=== PATIENT | male | born 1960 | race Caucasian/White ===

== ENCOUNTER 2023-02-14 06:54 | Outpatient (OUT) | payer BC, SELFPAY ==
[2023-02-14 07:10] LABS: Hematocrit 45.7 % (42.0-54.0); Hemoglobin 15.4 g/dL (14.0-18.0)
[2023-02-14 08:58] LABS: Prostate Specific Antigen Scrn 0.81 ng/mL (<=4.00)
[2023-02-15 04:07] LABS: Testosterone 675 ng/dL (264-916)
== END 2023-02-14 06:55 ==
LOC: LAB 06:54
PROVIDERS: PCP Internal Medicine; Visit Provider Urology
DX: E29.1 Testicular hypofunction (principal)
CPT/HCPCS: 36415; 84403; 85014; 85018; G0103

== ENCOUNTER 2023-06-12 11:24 | Outpatient (OUT) | payer BC, SELFPAY ==
[2023-06-12 12:01] LABS: Microalbumin Urine Random 5.8 mg/dL (<=30.0)
[2023-06-12 12:03] LABS: Estimated Average Glucose 183 mg/dL
[2023-06-12 12:12] LABS: Alanine Aminotransferase 19 U/L (16-63); Albumin Globulin Ratio 0.8; Albumin Level 3.4 g/dL (3.4-5.0); Alkaline Phosphatase 58 U/L (46-116); Aspartate Amino Transferase 12 U/L (15-37); BUN Creatinine Ratio 17.6; Bilirubin Total 1.3 mg/dL (0.2-1.0); Calcium 9.1 mg/dL (8.5-10.1); Carbon Dioxide 27.5 mmol/L (21.0-32.0); Chloride 99 mmol/L (98-107); Chol HDL Ratio 3.4; Cholesterol 148 mg/dL (<=200); Estimated GFR (African America >60 (>=60); Estimated GFR (Non-African Ame >60 (>=60); Globulin 4.2 g/dL; Glucose 126 mg/dL (74-106); HDL Cholesterol 44 mg/dL (40-60); Potassium 4.5 mmol/L (3.5-5.1); Sodium 135 mmol/L (136-145); Total Protein 7.6 g/dL (6.4-8.2); Triglycerides 156 mg/dL (<=150); VLDL CHOLESTEROL 31.2 mg/dL
== END 2023-06-12 11:25 | disposition home or self-care (01) ==
LOC: LAB 11:25
PROVIDERS: PCP Internal Medicine; Visit Provider Internal Medicine
DX: Z00.00 Encounter for general adult medical examination without abnormal findings (principal)
CPT/HCPCS: 36415; 80053; 80061; 82043; 83036

== ENCOUNTER 2023-08-29 06:36 | Outpatient (OUT) | payer BC, SELFPAY ==
[2023-08-29 07:27] LABS: Hematocrit 50.3 % (42.0-54.0); Hemoglobin 16.5 g/dL (14.0-18.0)
[2023-08-30 04:09] LABS: Testosterone 775 ng/dL (264-916)
== END 2023-08-29 06:37 | disposition home or self-care (01) ==
LOC: LAB 06:36
PROVIDERS: PCP Internal Medicine; Visit Provider Urology
DX: E29.1 Testicular hypofunction (principal); N52.9 Male erectile dysfunction, unspecified; N40.1 Benign prostatic hyperplasia with lower urinary tract symptoms; R81 Glycosuria
CPT/HCPCS: 36415; 84403; 85014; 85018

== ENCOUNTER 2024-06-13 12:39 | Outpatient (OUT) | payer MEDICARE, OTHER, SELFPAY ==
--- OUTSIDE RECORDS SUMMARY | 2024-06-13 12:42 | XMS_ITS | CCD ---
Author Organization [facility] Care Team Providers Care Fish Technologist Name Role Phone MART JIANG Primary Care Physician DO Mart Jiang Primary Care Provider DO Mart Jiang Attending Provider Mart Jiang Attending Unavailable Ball, Mart Primary Care Unavailable Mart Jiang Admitting Unavailable REQUEST, DR KELLY LISTED Attending Unavaila ble REQUEST, DR KELLY LISTED Consulting Unavaila ble REQUEST, DR KELLY LISTED Admitting Unavaila ble BALL, DR EDUARDO Primary Care Unavailable BALL, DR EDUARDO Admitting Unavailable BALL, DR EDUARDO Attending Unavailable BALL, DR EDUARDO Consulting Unavailable BALL, DR EDUARDO Primary Care Unavailable BALL, DR EDUARDO Admitting Unavailable BALL, DR EDUARDO Attending Unavailable BALL, DR EDUARDO Consulting Unavailable BALL, DR EDUARDO Primary Care Unavailable BALL, DR EDUARDO Admitting Unavailable BALL, DR EDUARDO Attending Unavailable BALL, DR EDUARDO Consulting Unavailable BALL, DR EDUARDO Primary Care Unavailable MITCHELMONICA Admitting Unavailable BALL, DR EDUARDO Primary Care Unavailable MITCHELMONICA BERGER Attending Unavailable MONICA GRULLON Consulting Unavailable EMERALD ROCK Admitting Unavailable BALL, DR EDUARDO Primary Care Unavailable MONICA GRULLON Consulting Unavailable WOJCIECH .EMERALD Attending Unavailable DENZEL Og, DR LEA Patricia Attending Unavaila ble DENZEL Og, DR LEA Patricia Consulting Unavaila ble DENZEL Og, DR LEA Patricia Admitting Unavaila ble BALL, DR EDUARDO Primary Care Unavailable Mart Jiang Unavailable Emerald Jeffrey Attending Unavailable MITCHELMONICA BERGER Attending Unavailable LueEmerald Attending Unavailable LueEmerald Attending Unavailable LueEmerald Attending Unavailable LueEmerald Attending Unavailable LueEmerald MLenka Attending Unavailable LueEmerald MLenka Attending Unavailable MITCHELMONICA Attending Unavailable LueEmerald Attending Unavailable MONICA GRULLON Attending Unavailable MONICA GRULLON Attending Unavailable Emerald Jeffrey Attending Unavailable MONCIA GRULLON Attending Unavailable MONICA GRULLON Attending Unavailable Emerald Jeffrey Attending Unavailable Emerald Jeffrey Attending Unavailable Emerald Jeffrey MLenka Attending Unavailable Emerald Jeffrey MLenka Attending Unavailable Emerald Jeffrey Attending Unavailable Emerald Jeffrey Attending Unavailable Emerald Jeffrey Attending Unavailable MONICA GRULLON Attending Unavailable Emerald Jeffrey Attending Unavailable Emerald Jeffrey Attending Unavailable DELIO GRULLON Attending Unavailable MONICA GRULLON Attending Unavailable Emerald Jeffrey Attending Unavailable JUAN MANUEL MCCLELLAND Attending Unavailable Allergies Allergy Classification Reported Allergen(s) Allergy Type Date of Onset Reaction(s) Facility (1 source) No Known Medication Allergies; Translations: [No Known Medication Allergies] Propensity to adverse reactions (disorder) [facility] Repository Medications Current Medications Medication Drug Class(es) Dates Sig (Normalized) Sig (Original) Tylenol (20 sources) Start: 07-05-2021 Tylenol Oral, Refills(s) 0 Start Date: 07/05/21 Status: Ordered aspirin 81 mg oral capsule (20 sources) Platelet Aggregation Inhibitor, Nonsteroidal Anti-inflammatory Drug Start: 07-05-2021 take 1 mg by mouth every four hours aspirin 81 mg oral capsule mg cap(s), Oral, q4hr, Refills(s) 0 Start Date: 07/05/21 Status: Ordered atenolol 100 mg oral tablet (20 sources) beta-Adrenergic Mckayla Start: 07-05-2021 take 1 mg by mouth once daily atenolol 100 mg Tab mg tab(s), Oral, Daily, Refills(s) 0 Start Date: 07/05/21 Status: Ordered take 0.5 tablet by mouth once da vincent Atenolol 100 MG TAKE 1/2 TABLET BY MOUTH EVERY DAY Active Depo-Testosterone 200 mg/mL intramuscular solution (2 sources) Start: 07-05-2021 Depo-Testosterone 200 mg/mL intramuscular solution 200 mg = 1 mL, IntraMuscular, q2wk, inject 200mg q 4 weeks IM, # 10 mL, Refills(s) 2, Pharmacy: [facility]/pharmacy #[id number], 175, cm, 07/05/21 9:36:00 EST, Height/Length Dosing, 175, kg, 07/05/21 9:36:00 EST, Weight Dosing Start Date: 07/05/21 Status: Ordered gabapentin 100 mg oral capsule (20 sources) Anti-epileptic Agent Start: 07-05-2021 take 1 mg by mouth three times daily gabapentin 100 mg Cap mg cap(s), Oral, TID, Refills(s) 0 Start Date: 07/05/21 Status: Ordered glimepiride 1 mg oral tablet (20 sources) Sulfonylurea Start: 07-05-2021 take 1 tablet by mouth once daily glimepiride 1 mg Tab mg tab(s), Oral, Daily, Refills(s) 0 Start Date: 07/05/21 Status: Ordered insulin isophane / insulin, regular, human (20 sources) Insulin Start: 07-05-2021 Novolin 70/30 SubCutaneous, Refill(s) 0 Start Date: 07/05/21 Status: Ordered NovoLIN 70/30 (7 0-30) 100 UNIT/ML as directed Subcutaneous Active lisinopril 30 mg oral tablet (20 sources) Angiotensin Converting Enzyme Inhibitor Start: 07-05-2021 take 1 mg by mouth once daily lisinopril 30 mg Tab mg tab(s), Oral, Daily, Refills(s) 0 Start Date: 07/05/21 Status: Ordered metFORMIN hydrochloride 1000 mg oral tablet (20 sources) Biguanide Start: 07-05-2021 take 1 mg by mouth twice daily metformin 1000 mg oral tablet mg tab(s), Oral, BID, Refills(s) 0 Start Date: 07/05/21 Status: Ordered take 1 tablet by anh th every twenty-four hours metFORMIN HCl 1000 MG 1 tablet with a meal Orally Once a day Active pravastatin sodium 40 mg oral tablet (20 sources) HMG-CoA Reductase Inhibitor Start: 07-05-2021 take 1 mg by mouth once daily Pravachol 40 mg Tab mg tab(s), Oral, Daily, Refills(s) 0 Start Date: 07/05/21 Status: Ordered sildenafil 100 mg oral tablet (12 sources) Phosphodiesterase 5 Inhibitor Start: 03-21-2023 take 1 tablet by mouth once daily sildenafil 100 mg Tab See Instructions, 1 tab(s) Oral Daily 1 hour before sexual activity, # 30 tab(s), Refills(s) 3, Pharmacy: [facility] [id number], 175, cm, 02/21/23 10:05:00 EDT, Height/Length Dosing, 169.2, kg, 02/21/23 10:05:00 EDT, Weight Dosing Start Date: 03/21/23 Status: Ordered Start: 07-05-2021 take 1 tablet by anh once daily sildenafil 100 mg Tab 100 mg = 1 tab(s), Oral, Daily, 1 hour before sexual activity, # 30 tab(s), Refills(s) 2, Pharmacy: [facility] [id number], 175, cm, 07/05/21 9:36:00 EST, Height/Length Dosing, 175, kg, 07/05/21 9:36:00 EST, Weight Dosing Start Date: 07/05/21 Status: Ordered 1 ml testosterone cypionate 200 mg/ml injection (4 sources) Androgen inject 1 mL by intramuscular injection every month Testosterone Cypionate 200 MG/ML 1 mL Intramuscular MONTHLY Active inject 1 mL by intra muscular injection every month Testosterone Cypionate 200 MG/ML 1 mL Intramuscular MONTHLY Active testosterone cypionate 200 mg/mL IM Gaye (20 sources) Start: 07-10-2023 inject 200 mg by intramuscular injection every other week testosterone cypionate 200 mg/mL IM Gaye 200 mg = 1 mL, IntraMuscular, q2wk, # 4 mL, Refills(s) 0, Pharmacy: [facility]/pharmacy #[id number], 175, cm, 02/21/23 10:05:00 EDT, Height/Length Dosing, 169.2, kg, 02/21/23 10:05:00 EDT, Weight Dosing Start Date: 07/10/23 Status: Ordered Start: 05-29-2023 inject 200 mg by int ramuscular injection every other week testosterone cypionate 200 mg/mL IM Gaye 200 mg = 1 mL, IntraMuscular, q2wk, # 1 mL, Refills(s) 3, Pharmacy: [facility]/pharmacy #[id number], 175, cm, 02/21/23 10:05:00 EDT, Height/Length Dosing, 169.2, kg, 02/21/23 10:05:00 EDT, Weight Dosing Start Date: 05/29/23 Status: Ordered Start: 02-15-2023 inject 200 mg by int ramuscular injection every other week testosterone cypionate 200 mg/mL IM Gaye 200 mg = 1 mL, IntraMuscular, q2wk, # 1 mL, Refills(s) 0, [id number] 175, cm, 11/15/22 8:06:00 EDT, Height/Length Dosing, 163, kg, 11/15/22 8:06:00 EDT, Weight Dosing Start Date: 02/15/23 Status: Ordered Start: 11-15-2022 inject 200 mg by int ramuscular injection every other week testosterone cypionate 200 mg/mL IM Gaye 200 mg = 1 mL, IntraMuscular, q2wk, # 10 mL, Refills(s) 5, [id number], 175, cm, 11/15/22 8:06:00 EDT, Height/Length Dosing, 163, kg, 11/15/22 8:06:00 EDT, Weight Dosing Start Date: 11/15/22 Status: Ordered Start: 08-09-2022 inject 200 mg by int ramuscular injection every other week testosterone cypionate 200 mg/mL IM Gaye 200 mg = 1 mL, IntraMuscular, q2wk, # 10 mL, Refills(s) 5, [id number], 175, cm, 08/09/22 13:42:00 EST, Height/Length Dosing, 175, kg, 08/09/22 13:42:00 EST, Weight Dosing Start Date: 08/09/22 Status: Ordered testosterone cypionate 200 mg/mL intramuscular solution (12 sources) Start: 03-07-2022 testosterone c ypionate 200 mg/mL intramuscular solution 200 mg, IntraMuscular, q4wk, # 10 mL, Refills(s) 1, Pharmacy: [facility]/pharmacy #[id number], 175, cm, 02/07/22 9:55:00 EDT, Height/Length Dosing, 175, kg, 02/07/22 9:55:00 EDT, Weight Dosing Start Date: 03/07/22 Status: Ordered Start: 02-07-2022 testosterone c ypionate 200 mg/mL intramuscular solution 200 mg, IntraMuscular, q4wk, # 10 mL, Refills(s) 1, Pharmacy: [facility] [id number], 175, cm, 02/07/22 9:55:00 EDT, Height/Length Dosing, 175, kg, 02/07/22 9:55:00 EDT, Weight Dosing Start Date: 02/07/22 Status: Ordered vardenafil 20 mg oral tablet (20 sources) Phosphodiesterase 5 Inhibitor Start: 02-07-2022 take 1 tablet by mouth once daily as needed vardenafil 20 mg Tab See Instructions, PRN for erectile dysfunction, 1 tab(s) Oral Daily 1 hour before sexual activity, # 30 caplet(s), Refills(s) 3, Pharmacy: [id number], 175, cm, 02/07/22 9:55:00 EDT, Height/Length Dosing, 175, kg, 02/07/22 9:55:00 EDT, Weig... Start Date: 03/07/22 Status: Ordered Vitamin E (20 sources) Start: 07-05-2021 vitamin E Oral, Daily, Refills(s) 0 Start Date: 07/05/21 Status: Ordered Problems Active Problems Problem Classification Problem Date Documented Date Episodic/Chronic Allergic reactions (4 sources) Allergic contact dermatitis caused by chemical; Translations: [Allergic contact dermatitis due to other chemical products] Episodic Diabetes mellitus with complications (20 sources) Hyperglycemia due to type 2 diabetes mellitus; Translations: [Polyneuropathy due to type 2 diabetes mellitus] Onset: 08-05-2021 08-09-2022 Chronic Diabetes mellitus without complication (20 sources) Glycosuria; Translations: [Glycosuria] Onset: 11-15-2022 Episodic Disorders of lipid metabolism (6 sources) Pure hypercholesterolemia ; Translations: [Familial hypercholesterolemia ] Chronic Essential hypertension (6 sources) Essential hypertension; Translations: [Essential (primary) hypertension] Chronic Genitourinary symptoms and ill-defined conditions (1 source) Microscopic hematuria; Translations: [Other microscopic hematuria] Onset: 02-07-2022 Episodic Hyperplasia of prostate (20 sources) Benign prostatic hypertrophy with outflow obstruction; Translations: [Benign prostatic hyperplasia with lower urinary tract symptoms] Onset: 02-07-2022 Chronic Miscellaneous mental health disorders (1 source) Male erectile disorder; Translations: [Erectile dysfunction] Onset: 02-07-2022 Chronic Other aftercare (3 sources) snf (current) use of insulin; Translations: [RESIDENTIAL CURRENT USE OF INSULIN] Onset: 01-03-2022 Episodic Other aftercare (4 sources) Long-term current use of insulin; Translations: [snf (current) use of insulin] Episodic Other and unspecified benign neoplasm (1 source) Benign neoplasm of colon, unspecified Episodic Other diseases of kidney and ureters (2 sources) Urinary tract obstruction; Translations: [Other obstructive and reflux uropathy] Onset: 02-07-2022 Episodic Other diseases of veins and lymphatics (1 source) Lymphedema, not elsewhere classified; Translations: [Lymphedema, not elsewhere classified] Onset: 03-29-2022 Chronic Other diseases of veins and lymphatics (4 sources) Peripheral venous insufficiency; Translations: [Venous insufficiency (chronic) (peripheral)] Episodic Other diseases of veins and lymphatics (2 sources) Venous insufficiency (chronic) (peripheral) Episodic Other endocrine disorders (20 sources) Testicular hypofunction; Translations: [Testicular hypofunction] Onset: 11-14-2021 Chronic Other endocrine disorders (20 sources) Male hypogonadism 07-07-2022 Chronic Other endocrine disorders (5 sources) Testicular hypofunction; Translations: [TESTICULAR HYPOFUNCTION] Onset: 01-03-2022 Chronic Other male genital disorders (20 sources) Male erectile dysfunction, unspecified; Translations: [Erectile dysfunction] Onset: 02-07-2022 Chronic Other nutritional; endocrine; and metabolic disorders (4 sources) Morbid obesity; Translations: [Morbid (severe) obesity due to excess calories] Chronic Other nutritional; endocrine; and metabolic disorders (2 sources) Morbid (severe) obesity due to excess calories Chronic Other screening for suspected conditions (not mental disorders or infectious disease) (6 sources) Encounter for screening for malignant neoplasm of prostate; Translations: [Decreased testosterone level ] Onset: 04-17-2022 Episodic Residual codes; unclassified (4 sources) Edema; Translations: [Localized edema] Episodic Past or Other Problems Problem Classification Problem Date Documented Da te Episodic/Chronic Residual codes; unclassified (1 source) Localized edema; Translations: [LOCALIZED EDEMA] Onset: 01-03-2022 Episodic Results Test Name Value Interpretation Reference Range Facil ity [facility] 09-03-2023 Lab Reports [id number] 61#1.00TIFF [facility] Lab Reportson 08-30-2023 Lab Reports [id number] [facility] [id number] C3[facility] 08-23-20 Consultation Note [id number] [facility] 1 10-23-2022 Ambulatory Visit Summary SUAD CORDERO :1960 Visit Date:08/22/2023 Ambulatory Visit Instructions Your Diagnosis Hypogonadism male Your Care Team Attending Physician - Emerald Jeffrey MD Primary Care Physician - MART JIANG DO This Is Your Medications List acetaminophen (Tylenol) aspirin (aspirin 81 mg oral capsule) atenolol (atenolol 100 mg Tab) glimepiride (glimepiride 1 mg Tab) insulin isophane-insulin regular (Novolin 70/30) lisinopril (lisinopril 30 mg Tab) metformin (metformin 1000 mg oral tablet) pravastatin (Pravachol 40 mg Tab) sildenafil (sildenafil 100 mg Tab) testosterone (testosterone cypionate 200 mg/mL IM Gaye) vitamin E Procedures Performed Cholecystectomy, Colonoscopy, Tonsillectomy. What to do next Scheduled Follow-Up Appointments Sunday 9:45 AM EST With: Emerald Jeffrey MD Where: [facility] Ambulatory Visit Summaryon 1 10-08-2022 Ambulatory Visit Summary CONSUELO SUAD Meri :1960 Visit Date:08/07/2023 Ambulatory Visit Instructions Your Diagnosis Hypogonadism male Your Care Team Attending Physician - Emerald Jeffrey MD Primary Care Physician - MART JIANG DO This Is Your Medications List acetaminophen (Tylenol) aspirin (aspirin 81 mg oral capsule) atenolol (atenolol 100 mg Tab) glimepiride (glimepiride 1 mg Tab) insulin isophane-insulin regular (Novolin 70/30) lisinopril (lisinopril 30 mg Tab) metformin (metformin 1000 mg oral tablet) pravastatin (Pravachol 40 mg Tab) sildenafil (sildenafil 100 mg Tab) testosterone (testosterone cypionate 200 mg/mL IM Gaye) vitamin E Procedures Performed Cholecystectomy, Colonoscopy, Tonsillectomy. What to do next Scheduled Follow-Up Appointments Sunday 9:30 AM EST With: Where: [facility] Normal [address] [facility] [place] [address]- \.br\ Medications\.br\ What How Much When Instructions\.br\ Unchanged acetaminophen (Tylenol) By Mouth\.br\ Unchanged aspirin (aspirin 81 mg oral capsule) By Mouth Every 4 hours\.br\ Unchanged atenolol (atenolol 100 mg Tab) By Mouth Every day\.br\ Unchanged glimepiride (glimepiride 1 mg Tab) By Mouth Every day\.br\ Unchanged insulin isophane-insulin regular (Novolin 70/ 30) Subcutaneous\.br\ Unchanged lisinopril (lisinopril 30 mg Tab) By Mouth Every day\.br\ Unchanged metformin (metformin 1000 mg oral tablet) By Mouth 2 times a day\.br\ Unchanged pravastatin (Pravachol 40 mg Tab) By Mouth Every day\.br\ Unchanged sildenafil (sildenafil 100 mg Tab) See instructions 1 tab(s) Oral Daily 1 hour before sexual activity \.br\ Unchanged testosterone (testosterone cypionate 200 mg/ mL IM Gaye) 1 Milliliter Intramuscular Every other week\.br\ Unchanged vitamin E By Mouth Every day\.br\ Medications and Immunizations Administered\.br\ Given\.br\ Depo-Testosterone 200 mg/mL intramuscular solution, 200 mg, IntraMuscular. For: Hypogonadism male\.br\ Allergies\.br\ No Known Medication Allergies\.br\ Problems\.br\ Ongoing - Any problem that you are currently receiving treatment for.\.br\ BPH with urinary obstruction\.br\ Erectile dysfunction\.br\ Glucosuria\.br\ Hyperglycemia due to type 2 diabetes mellitus\.br\ Hypogonadism male\.br\ Polyneuropathy due to type 2 diabetes mellitus\.br\ Patient Survey\.br\ You may receive a survey via text or e-mail asking about your office visit. Please share your experience with us by completing your survey. We appreciate your feedback and thank you for choosing us for your care.\.br\ \.br\ [facility] Ambulatory Visit Summaryon 09-23-2022 Ambulatory Visit Summary SUAD CORDERO :1960 Visit Date:07/24/2023 Ambulatory Visit Instructions Your Diagnosis Hypogonadism male Your Care Team Attending Physician - Emerald Jeffrey MD Primary Care Physician - MART JIANG DO This Is Your Medications List acetaminophen (Tylenol) aspirin (aspirin 81 mg oral capsule) atenolol (atenolol 100 mg Tab) glimepiride (glimepiride 1 mg Tab) insulin isophane-insulin regular (Novolin 70/30) lisinopril (lisinopril 30 mg Tab) metformin (metformin 1000 mg oral tablet) pravastatin (Pravachol 40 mg Tab) sildenafil (sildenafil 100 mg Tab) testosterone (testosterone cypionate 200 mg/mL IM Gaye) vitamin E Procedures Performed Cholecystectomy, Colonoscopy, Tonsillectomy. What to do next Scheduled Follow-Up Appointments Sunday 9:30 AM EST With: Where: [facility] Invalid Interpretation Code [address] [place] [address]- \.br\ Sunday 9:45 AM EST \.br\ With: Emerald Jeffrey MD\.br\ Where: [facility] Ambulatory Visit Summaryon 09-09-2022 Ambulatory Visit Summary SUAD CORDERO :1960 Visit Date:07/10/2023 Ambulatory Visit Instructions Your Diagnosis Hypogonadism male Your Care Team Attending Physician - Emerald Jeffrey MD Primary Care Physician - MART JIANG DO This Is Your Medications List acetaminophen (Tylenol) aspirin (aspirin 81 mg oral capsule) atenolol (atenolol 100 mg Tab) glimepiride (glimepiride 1 mg Tab) insulin isophane-insulin regular (Novolin 70/30) lisinopril (lisinopril 30 mg Tab) metformin (metformin 1000 mg oral tablet) pravastatin (Pravachol 40 mg Tab) sildenafil (sildenafil 100 mg Tab) testosterone (testosterone cypionate 200 mg/mL IM Gaye) vitamin E Procedures Performed Cholecystectomy, Colonoscopy, Tonsillectomy. What to do next Scheduled Follow-Up Appointments Sunday 9:30 AM EST With: Where: [facility] Invalid Interpretation Code [address] [place] [address]- \.br\ Sunday 9:30 AM EST \.br\ With:\.br\ Where: [facility] Ambulatory Visit Summaryon 1 Ambulatory Visit Summary SUAD CORDERO :1960 Visit Date:06/26/2023 Ambulatory Visit Instructions Your Diagnosis Hypogonadism male Your Care Team Attending Physician - Wojciech GUERRERO, Emerald Arteaga Primary Care Physician - MART JIANG DO This Is Your Medications List acetaminophen (Tylenol) aspirin (aspirin 81 mg oral capsule) atenolol (atenolol 100 mg Tab) glimepiride (glimepiride 1 mg Tab) insulin isophane-insulin regular (Novolin 70/30) lisinopril (lisinopril 30 mg Tab) metformin (metformin 1000 mg oral tablet) pravastatin (Pravachol 40 mg Tab) sildenafil (sildenafil 100 mg Tab) testosterone (testosterone cypionate 200 mg/mL IM Gaye) vitamin E Procedures Performed Cholecystectomy, Colonoscopy, Tonsillectomy. What to do next Scheduled Follow-Up Appointments Sunday 9:30 AM EST With: Where: [facility] Invalid Interpretation Code [address] [place] [address]- \.br\ Sunday 3:45 PM EST \.br\ With:\.br\ Where: [facility] Ambulatory Visit Summaryon 1 Ambulatory Visit Summary SUAD CORDERO :1960 Visit Date:06/12/2023 Ambulatory Visit Instructions Your Diagnosis Hypogonadism male Your Care Team Attending Physician - Wojciech GUERRERO, Emerald Arteaga Primary Care Physician - MART JIANG DO This Is Your Medications List acetaminophen (Tylenol) aspirin (aspirin 81 mg oral capsule) atenolol (atenolol 100 mg Tab) glimepiride (glimepiride 1 mg Tab) insulin isophane-insulin regular (Novolin 70/30) lisinopril (lisinopril 30 mg Tab) metformin (metformin 1000 mg oral tablet) pravastatin (Pravachol 40 mg Tab) sildenafil (sildenafil 100 mg Tab) testosterone (testosterone cypionate 200 mg/mL IM Agye) vitamin E Procedures Performed Cholecystectomy, Colonoscopy, Tonsillectomy. What to do next Scheduled Follow-Up Appointments Sunday 3:45 PM EDT With: Where: [facility] Invalid Interpretation Code [address] [place] [address]- \.br\ Sunday 3:45 PM EST \.br\ With:\.br\ Where: [facility] Ambulatory Visit Summaryon 1 Ambulatory Visit Summary SUAD CORDERO :1960 Visit Date:05/29/2023 Ambulatory Visit Instructions Your Care Team Attending Physician - Wojciech GUERRERO, Emerald Arteaga Primary Care Physician - MART JIANG DO This Is Your Medications List acetaminophen (Tylenol) aspirin (aspirin 81 mg oral capsule) atenolol (atenolol 100 mg Tab) glimepiride (glimepiride 1 mg Tab) insulin isophane-insulin regular (Novolin 70/30) lisinopril (lisinopril 30 mg Tab) metformin (metformin 1000 mg oral tablet) pravastatin (Pravachol 40 mg Tab) sildenafil (sildenafil 100 mg Tab) testosterone (testosterone cypionate 200 mg/mL IM Gaye) vitamin E Procedures Performed Cholecystectomy, Colonoscopy, Tonsillectomy. What to do next Scheduled Follow-Up Appointments Sunday 3:45 PM EDT With: Where: [facility] Invalid Interpretation Code [address] [place] [address]- \.br\ Sunday 3:45 PM EST \.br\ With:\.br\ Where: [facility] Ambulatory Visit Summaryon 0 04-18-2023 Ambulatory Visit Summary SUAD CORDERO :1960 Visit Date:04/18/2023 Ambulatory Visit Instructions Your Diagnosis Hypogonadism male Your Care Team Attending Physician - Wojciech GUERRERO, Emerald Arteaga Primary Care Physician - MART JIANG DO This Is Your Medications List acetaminophen (Tylenol) aspirin (aspirin 81 mg oral capsule) atenolol (atenolol 100 mg Tab) glimepiride (glimepiride 1 mg Tab) insulin isophane-insulin regular (Novolin 70/30) lisinopril (lisinopril 30 mg Tab) metformin (metformin 1000 mg oral tablet) pravastatin (Pravachol 40 mg Tab) sildenafil (sildenafil 100 mg Tab) testosterone (testosterone cypionate 200 mg/mL IM Gaye) vitamin E Procedures Performed Cholecystectomy, Colonoscopy, Tonsillectomy. What to do next Scheduled Follow-Up Appointments Sunday 3:45 PM EDT With: Where: [facility] Invalid Interpretation Code [address] [place] [address]- \.br\ Sunday 3:45 PM EDT \.br\ With:\.br\ Where: [facility] Ambulatory Visit Summaryon 0 03-06-2023 Ambulatory Visit Summary SUAD CORDERO :1960 Visit Date:03/06/2023 Ambulatory Visit Instructions Your Care Team Attending Physician - DELIO GRULLON DO Primary Care Physician - MART JIANG DO This Is Your Medications List acetaminophen (Tylenol) aspirin (aspirin 81 mg oral capsule) atenolol (atenolol 100 mg Tab) glimepiride (glimepiride 1 mg Tab) insulin isophane-insulin regular (Novolin 70/30) lisinopril (lisinopril 30 mg Tab) metformin (metformin 1000 mg oral tablet) pravastatin (Pravachol 40 mg Tab) testosterone (testosterone cypionate 200 mg/mL IM Gaye) vardenafil (vardenafil 20 mg Tab) vitamin E Procedures Performed Cholecystectomy, Colonoscopy, Tonsillectomy. What to do next Scheduled Follow-Up Appointments Sunday 3:45 PM EDT With: Where: [facility] Normal [address] [place] [address] [place] [address]- \.br\ Medications\.br\ What How Much When Instructions\.br\ Unchanged acetaminophen (Tylenol) By Mouth\.br\ Unchanged aspirin (aspirin 81 mg oral capsule) By Mouth Every 4 hours\.br\ Unchanged atenolol (atenolol 100 mg Tab) By Mouth Every day\.br\ Unchanged glimepiride (glimepiride 1 mg Tab) By Mouth Every day\.br\ Unchanged insulin isophane-insulin regular (Novolin 70/ 30) Subcutaneous\.br\ Unchanged lisinopril (lisinopril 30 mg Tab) By Mouth Every day\.br\ Unchanged metformin (metformin 1000 mg oral tablet) By Mouth 2 times a day\.br\ Unchanged pravastatin (Pravachol 40 mg Tab) By Mouth Every day\.br\ Unchanged testosterone (testosterone cypionate 200 mg/ mL IM Gaye) 1 Milliliter Intramuscular Every other week\.br\ Unchanged vardenafil (vardenafil 20 mg Tab) See instructions 1 tab(s) Oral Daily 1 hour before sexual activity \.br\ Unchanged vitamin E By Mouth Every day\.br\ Medications and Immunizations Administered\.br\ Given\.br\ Depo-Testosterone 200 mg/mL intramuscular solution, 200 mg, IntraMuscular\.br\ Allergies\.br\ No Known Medication Allergies\.br\ Problems\.br\ Ongoing - Any problem that you are currently receiving treatment for.\.br\ BPH with urinary obstruction\.br\ Erectile dysfunction\.br\ Glucosuria\.br\ Hyperglycemia due to type 2 diabetes mellitus\.br\ Hypogonadism male\.br\ Polyneuropathy due to type 2 diabetes mellitus\.br\ \.br\ [facility] Urology Office/Clinic Noteon 02-22-2023 Urology Office/Clinic Note Chief Complaint 3m f/u HPI Staff 3m to review labs. Pt receives 200mg Testosterone Injections q2wks for Tx of Hypogonadism. Additional DX: ED, BPH & Glucosuria *Vardenafil 20mg PRN & GILBERT T 02/14/23- 675 ([phone]) HGB 02/14/23- 15.4 HCT 02/14/23- 45.7 PSA 02/14/23- 0.81 patient denies any past or current uirnary complaints. patient doing well with injections every 2 weeks. patient will need refill on testosterone injections if he's planning on continuing them. Painful urination: no Blood in urine: no urinary frequency: no urinary urgency: no incomplete emptying: no nocturia: no weak stream: no post void dribbling: no urinary incontinence: no History of Present Illness Tests reviewed: reviewed UA, Labs I have reviewed the previous health record information and history for this patient from Dr. Jeffrey. I have reviewed and verified the staff HPI to be accurate for this encounter. There have been no associated fever, chills, flank pain, or blood in the urine. Denies any urinary infections since last encounter. Review of Systems PHQ Score Initial Depression Screen Score: 0 ROS - Provider Constitutional: denies weight loss, denies hot flashes. Eyes: denies eye problems. Gastrointestinal: denies nausea, denies vomiting. Cardiovascular: denies chest pain or angina. Integumentary: no dryness Musculoskeletal: denies musculoskeletal symptoms. ENMT: denies otolaryngeal symptoms. Respiratory: no shortness of breath. Heme/Lymph: denies easy bleeding tendency, denies easy bruising tendency. Psychiatric: no confusion, no anxiety. Genitourinary: See HPI. Physical Exam Vitals & Measurements HR: 79(Peripheral) RR: 16 BP: 149/70 HT: 69 in HT: 175 cm WT: 169.18 kg WT: 372.196 lb BMI: 55.24 General Appearance: alert, no distress, well nourished, well developed male. Assessment/Plan 1. Hypogonadism male (E29.1: Testicular hypofunction) Testosterone: 04/02/21 - 225 12/28/21 - 319 07/26/22 - 364 11/07/22 - 515, HGB 16.5, HCT 49.4 02/14/23 - 675, HGB 15.4, HCT 45.7 Receiving Testosterone 200 mg IM q2wks. Testosterone is now wnl and other levels are good as well. Pt states his symptoms having improved with his testosterone injection. Happy with results, tolerating well. Follow up 6 mos or sooner if needed with T, Hct and PSA. Pt understands and agrees with plan. -stay active/weight bearing exercises -will receive T injection today 2. Erectile dysfunction (N52.9: Male erectile dysfunction, unspecified) Vardenafil 20 mg PRN and GILBERT. Pt states he is fine with his symptoms. Notes improvement Patient is tolerating current medication for ED well without side effects, he would like to continue the medication. Will send refill and follow up in 6 mths 3. BPH with urinary obstruction (N40.1: Benign prostatic hyperplasia with lower urinary tract symptoms) PSA (monitored by PCP): 04/14/22 - 0.72 07/26/22 - 0.70 02/14/23 - 0.81 Denies hx of UTIs, not currently having any UTI sxs. Voids every few hours. Pt to call if he were to develop UTI sxs. Denies cloudy urine. Pt states he is not having any urinary symptoms or complaints. -High fluid intake -Timed voids, bowel regimen -PSA level through PCP in 5 mos otherwise will order PSA before next visit in 6 mos given on TRT 4. Glucosuria (R81: Glycosuria) Pt is diabetic. Has occasional numbness in feet. Discussed contribution to urinary and ED symptoms. -recommend DM control I spent 25 minutes today with the patient: reviewing tests in preparation to see and discuss them with the patient, documenting clinical information in the electronic health records, and care coordination. Over half the time was spent performing a medical exam and evaluation, and counseling and educating the patient, and ordering tests in caring for the patient. Follow-up With When Contact Information Emerald Jeffrey MD, URL, URO In 6 months Additional Instructions: w/ Labs Patient Education Hypogonadism, Male I, Aliya Pollack, personally scribed for Dr. Jeffrey on 02/21/2023 11:07:20. . Documentation recorded by the scribe, Aliya Pollack, accurately reflects the services(s) I performed and decisions made by me. Authenticated by Dr. Jeffrey on 02/21/2023 22:06:40. Problem List/Past Medical History Ongoing BPH with urinary obstruction Erectile dysfunction Glucosuria Hyperglycemia due to type 2 diabetes mellitus Hypogonadism male Polyneuropathy due to type 2 diabetes mellitus Historical No qualifying data Procedure/Surgical History Cholecystectomy, Colonoscopy, Tonsillectomy. Medications aspirin 81 mg oral capsule, Oral, q4hr atenolol 100 mg Tab, Oral, Daily Depo-Testosterone 200 mg/mL intramuscular solution, 200 mg= 1 mL, IntraMuscular, Once glimepiride 1 mg Tab, Oral, Daily lisinopril 30 mg Tab, Oral, Daily metformin 1000 mg oral tablet, Oral, BID Novolin 70/30, SubCutaneous (more content not included)... [facility] Comment on above: Result Comment: Elec tronically Signed By: Emerald Jeffrey MD\.br\Date and Time Signed: 02/21/23 22:08 EDT\.br\Electronically Co-Signed By: Aliya Pollack\.br\Date and Time Co-Signed: 02/21/23 11:07 EDT Patient Educationon 02-22-20 23 Patient Education Urology Hypogonadism, Male Male hypogonadism is a condition of having a level of testosterone that is lower than normal. Testosterone is a chemical, or hormone, that is made mainly in the testicles. In boys, testosterone is responsible for the development of male characteristics during puberty. These include: ? Making the penis bigger. ? Growing and building the muscles. ? Growing facial hair. ? Deepening the voice. In adult men, testosterone is responsible for maintaining: ? An interest in sex and the ability to have sex. ? Muscle mass. ? Sperm production. ? Red blood cell production. ? Bone strength. Testosterone also gives men energy and a sense of well-being. Testosterone normally decreases as men age and the testicles make less testosterone. Testosterone levels can vary from man to man. Not all men will have signs and symptoms of low testosterone. Weight, alcohol use, medicines, and certain medical conditions can affect a man's testosterone level. What are the causes? This condition is caused by: ? A natural decrease in testosterone that occurs as a man grows older. This is the main cause of this condition. ? Use of medicines, such as antidepressants, steroids, and opioids. ? Diseases and conditions that affect the testicles or the making of testosterone. These include: ? Injury or damage to the testicles from trauma, cancer, cancer treatment, or infection. ? Diabetes. ? Sleep apnea. ? Genetic conditions that men are born with. ? Disease of the pituitary gland. This gland is in the brain. It produces hormones. ? Obesity. ? Metabolic syndrome. This is a group of diseases that affect blood pressure, blood sugar, cholesterol, and belly fat. ? HIV or AIDS. ? Alcohol abuse. ? Kidney failure. ? Other long-term or chronic diseases. What are the signs or symptoms? Common symptoms of this condition include: ? Loss of interest in sex (low sex drive). ? Inability to have or maintain an erection (erectile dysfunction). ? Feeling tired (fatigue). ? Mood changes, like irritability or depression. ? Loss of muscle and body hair. ? Infertility. ? Large breasts. ? Weight gain (obesity). How is this diagnosed? Your health care provider can diagnose hypogonadism based on: ? Your signs and symptoms. ? A physical exam to check your testosterone levels. This includes blood tests. Testosterone levels can change throughout the day. Levels are highest in the morning. You may need to have repeat blood tests before getting a diagnosis of hypogonadism. Depending on your medical history and test results, your health care provider may also do other tests to find the cause of low testosterone. How is this treated? This condition is treated with testosterone replacement therapy. Testosterone can be given by: ? Injection or through pellets inserted under the skin. ? Gels or patches placed on the skin or in the mouth. Testosterone therapy is not for everyone. It has risks and side effects. Your health care provider will consider your medical history, your risk for prostate cancer, your age, and your symptoms before putting you on testosterone replacement therapy. Follow these instructions at home: ? Take [id number] and prescription medicines only as told by your health care provider. ? Eat foods that are high in fiber, such as beans, whole grains, and fresh fruits and vegetables. Limit foods that are high in fat and processed sugars, such as fried or sweet foods. ? If you drink alcohol: ? Limit how much you have to 0?2 drinks a day. ? Know how much alcohol is in your drink. In the [place] one drink equals one 12 oz bottle of beer (355 mL), one 5 oz glass of wine (148 mL), or one 1? oz glass of hard liquor (44 mL). ? Return to your normal activities as told by your health care provider. Ask your health care provider what activities are safe for you. ? Keep all follow-up visits. This is important. Contact a health care provider if: ? You have any of the signs or symptoms of low testosterone. ? You have any side effects from testosterone therapy. Summary ? Male hypogonadism is a condition of having a level of testosterone that is lower than normal. ? The natural drop in testosterone production that occurs with age is the most common cause of this condition. ? Low testosterone can also be caused by many diseases and conditions that affect the testicles and the making of testosterone. ? This condition is treated with testosterone replacement therapy. ? There are risks and side effects of testosterone therapy. Your health care provider will consider your age, medical history, symptoms, and risks for prostate cancer before putting you on testosterone therapy. This information is not intended to replace advice given to you by your health care provider. Make sure you discuss any questions you have with your health care provider. Document Revised: 04/14/2021 Document (more content not included)... Normal [facility] Lab Reportson 02-18-2023 Lab Reports .[id number] 9#1.00CD:127 [facility] Lab Reports [id number] 7E#[id number]:127 [facility] Lab Reports [id number] 6#1.00CD:127 [facility] Ambulatory Visit Summaryon 0 12-27-2022 Ambulatory Visit Summary SUAD CORDERO :1960 Visit Date:12/27/2022 Ambulatory Visit Instructions Your Diagnosis Hypogonadism male Your Care Team Attending Physician - Wojciech GUERRERO, Emerald Arteaga Primary Care Physician - MART JIANG DO This Is Your Medications List acetaminophen (Tylenol) aspirin (aspirin 81 mg oral capsule) atenolol (atenolol 100 mg Tab) gabapentin (gabapentin 100 mg Cap) glimepiride (glimepiride 1 mg Tab) insulin isophane-insulin regular (Novolin 70/30) lisinopril (lisinopril 30 mg Tab) metformin (metformin 1000 mg oral tablet) pravastatin (Pravachol 40 mg Tab) testosterone (testosterone cypionate 200 mg/mL IM Gaye) vardenafil (vardenafil 20 mg Tab) vitamin E Procedures Performed Cholecystectomy, Colonoscopy, Tonsillectomy. What to do next Scheduled Follow-Up Appointments Sunday. 2022 3:15 PM EDT With: Where: [facility] Normal [address] [place] [address]- \.br\ Medications\.br\ What How Much When Instructions\.br\ Unchanged acetaminophen (Tylenol) By Mouth\.br\ Unchanged aspirin (aspirin 81 mg oral capsule) By Mouth Every 4 hours\.br\ Unchanged atenolol (atenolol 100 mg Tab) By Mouth Every day\.br\ Unchanged gabapentin (gabapentin 100 mg Cap) By Mouth 3 times a day\.br\ Unchanged glimepiride (glimepiride 1 mg Tab) By Mouth Every day\.br\ Unchanged insulin isophane-insulin regular (Novolin 70/ 30) Subcutaneous\.br\ Unchanged lisinopril (lisinopril 30 mg Tab) By Mouth Every day\.br\ Unchanged metformin (metformin 1000 mg oral tablet) By Mouth 2 times a day\.br\ Unchanged pravastatin (Pravachol 40 mg Tab) By Mouth Every day\.br\ Unchanged testosterone (testosterone cypionate 200 mg/ mL IM Gaye) 1 Milliliter Intramuscular Every other week\.br\ Unchanged vardenafil (vardenafil 20 mg Tab) See instructions 1 tab(s) Oral Daily 1 hour before sexual activity \.br\ Unchanged vitamin E By Mouth Every day\.br\ Medications and Immunizations Administered\.br\ Given\.br\ Depo-Testosterone 200 mg/mL intramuscular solution, 200 mg, IntraMuscular. For: Hypogonadism male\.br\ Allergies\.br\ No Known Medication Allergies\.br\ Problems\.br\ Ongoing - Any problem that you are currently receiving treatment for.\.br\ BPH with urinary obstruction\.br\ Erectile dysfunction\.br\ Glucosuria\.br\ Hyperglycemia due to type 2 diabetes mellitus\.br\ Hypogonadism male\.br\ Polyneuropathy due to type 2 diabetes mellitus\.br\ \.br\ [facility] Ambulatory Visit Summaryon 0 11-29-2022 Ambulatory Visit Summary SUAD CORDERO :1960 Visit Date:11/29/2022 Ambulatory Visit Instructions Your Diagnosis Hypogonadism male Your Care Team Attending Physician - Wojciech GUERRERO, Emerald Arteaga Primary Care Physician - MART JIANG DO This Is Your Medications List acetaminophen (Tylenol) aspirin (aspirin 81 mg oral capsule) atenolol (atenolol 100 mg Tab) gabapentin (gabapentin 100 mg Cap) glimepiride (glimepiride 1 mg Tab) insulin isophane-insulin regular (Novolin 70/30) lisinopril (lisinopril 30 mg Tab) metformin (metformin 1000 mg oral tablet) pravastatin (Pravachol 40 mg Tab) testosterone (testosterone cypionate 200 mg/mL IM Gaye) vardenafil (vardenafil 20 mg Tab) vitamin E Procedures Performed Cholecystectomy, Colonoscopy, Tonsillectomy. What to do next Scheduled Follow-Up Appointments Sunday 3:15 PM EDT With: Where: [facility] Invalid Interpretation Code [address] [place] [address]- \.br\ Sunday 3:15 PM EDT \.br\ With:\.br\ Where: [facility] 11-16-2022 Screens [id number] C#1.00CD:127 [facility] Patient Educationon 11-16-19 Patient Education Urology Testicular Self-Exam A self-examination of your testicles (testicular self-exam) involves looking at and feeling your testicles for abnormal lumps or swelling. Several things can cause swelling, lumps, or pain in your testicles. Some of these causes are: ? Injuries. ? Inflammation. ? Infection. ? Buildup of fluids around your testicle (hydrocele). ? Twisted testicles (testicular torsion). ? Testicular cancer. Why is it important to do a testicular self-exam? Self-examination of the testicles and the left and right groin areas may be recommended if you are at risk for testicular cancer. Your groin is where your lower abdomen meets your upper thighs. You may be at risk for testicular cancer if you have: ? An undescended testicle (cryptorchidism). ? A history of previous testicular cancer. ? A family history of testicular cancer. How to do a testicular self-exam The testicles are easiest to examine after a warm bath or shower. They are more difficult to examine when you are cold. This is because the muscles attached to the testicles retract and pull them up higher or into the abdomen. A normal testicle is egg-shaped and feels firm. It is smooth and not tender. The spermatic cord can be felt as a firm, spaghetti-like cord at the back of your testicle. Look and feel for changes ? Stand and hold your penis away from your body. ? Look at each testicle to check for lumps or swelling. ? Roll each testicle between your thumb and forefinger, feeling the entire testicle. Feel for: ? Lumps. ? Swelling. ? Discomfort. ? Check the groin area between your abdomen and upper thighs on both sides of your body. Look and feel for any swelling or bumps that are tender. These could be enlarged lymph nodes. Contact a health care provider if: ? You find any bumps or lumps, such as a small, hard, pea-sized lump. ? You find swelling, pain, or soreness. ? You see or feel any other changes in your testicles. Summary ? A self-examination of your testicles (testicular self-exam) involves looking at and feeling your testicles for any changes. ? Self-examination of the testicles and the left and right groin areas may be recommended if you are at risk for testicular cancer. ? You should check each of your testicles for lumps, swelling, or discomfort. ? You should check for swelling or tender bumps in your groin area between your lower abdomen and upper thighs. This information is not intended to replace advice given to you by your health care provider. Make sure you discuss any questions you have with your health care provider. Document Released: 11/19/2001 Document Revised: 12/04/2019 Document Reviewed: 07/09/2017 [employer] Patient Education ? 2019 Built In. [facility] Urology Office/Clinic Noteon 11-15-2022 Urology Office/Clinic Note Chief Complaint 3m w/labs HPI Staff 3m w/Testosterone & CBC due to receiving 200mg IM Testosterone Injections q2wks for Tx of Hypogonadism. Additional DX: ED & BPH Testosterone done 11/07/22- 515 ([id number]) HGB 16.5 (14.0-18.0) & HCT 49.4 (42.0-54.0) *Vacuum device for ED & Vardenafil 20mg therapy. Since starting injections, larger volume of ejaculation. IPSS 3 Did not finish RENEE sheet, pt states he does not have intercourse with his . History of Present Illness Tests reviewed: reviewed UA, labs. I have reviewed the previous health record information and history for this patient from Dr. Jeffrey. I have reviewed and verified the staff HPI to be accurate for this encounter. There have been no associated fever, chills, flank pain, or blood in the urine. Denies any urinary infections since last encounter. Review of Systems PHQ Score Initial Depression Screen Score: 0 ROS - Provider Constitutional: denies weight loss, denies hot flashes. Eyes: denies eye problems. Gastrointestinal: denies nausea, denies vomiting. Cardiovascular: denies chest pain or angina. Integumentary: no dryness Musculoskeletal: denies musculoskeletal symptoms. ENMT: denies otolaryngeal symptoms. Respiratory: no shortness of breath. Heme/Lymph: denies easy bleeding tendency, denies easy bruising tendency. Psychiatric: no confusion, no anxiety. Genitourinary: See HPI. Physical Exam Vitals & Measurements HR: 94(Peripheral) RR: 16 BP: 136/72 HT: 69 in HT: 175 cm WT: 163 kg WT: 358.6 lb BMI: 53.22 General Appearance: alert, no distress, well nourished, well developed male. Genitourinary: normal scrotum, normal testes, normal urethra, normal epididymis, normal vas deferens/spermatic cord. Flank Pain: none. Bladder: nonpalpable. Assessment/Plan 1. Hypogonadism male (E29.1: Testicular hypofunction) Testosterone: 04/02/21 - 225 12/28/21 - 319 07/26/22 - 364 11/07/22 - 515 ([id number]), HGB 16.5 (14.0-18.0) & HCT 49.4 (42.0-54.0) Increased T injections from q4wk to q2wk at prior OV. Receiving Testosterone 200 mg IM q2wks. Has noticed greater volume of ejaculate since starting injections. Testosterone is now wnl and other levels are good as well. Does not feel much of a difference with increased frequency of T injections. Discussed having pt give T injections at home, pt prefers to keep receiving injections IO. Follow up 6 mos or sooner if needed with T, Hct and PSA. Pt understands and agrees with plan. -stay active/weight bearing exercises -will receive T injection today 2. Erectile dysfunction (N52.9: Male erectile dysfunction, unspecified) Vardenafil 20 mg PRN and GILBERT. Pt does have GILBERT but unsure how to properly use it. Educated pt proper usage of GILBERT including using everyday for 10-20 min for maintenance or 30 min PRN for intercourse. 3. BPH with urinary obstruction (N40.1: Benign prostatic hyperplasia with lower urinary tract symptoms) PSA (monitored by PCP): 04/14/22 - 0.72 07/26/22 - 0.70 UA today shows large leuks and trace-intact blood. IPSS 3. Denies hx of UTIs, not currently having any UTI sxs. Voids every few hours. Pt to call if he were to develop UTI sxs. Denies cloudy urine. -High fluid intake -Monitor for UTI sxs -PSA level through PCP in 5 mos otherwise will order PSA before next visit in 6 mos given on TRT 4. Glucosuria (R81: Glycosuria) UA today shows >=1000 mg/dl. Pt is diabetic. Has occasional numbness in feet. Counseled pt on DM management to prevent sugar irritating bladder, diabetic bladder, and also improvement with ED. -DM control Follow-up With When Contact Information Wojciech GUERRERO, Emerald Arteaga, URL, URO Additional Instructions: 6 mos with labs Patient Education Testicular Self-Exam I, Nicole Leos, personally scribed for Dr. Jefrfey on 11/15/2022 08:35:21. . Documentation recorded by the scribe, Nicole Leos, accurately reflects the services(s) I performed and decisions made by me. Authenticated by Dr. Jeffrey on 11/15/2022 08:51:57. Problem List/Past Medical History Ongoing BPH with urinary obstruction Erectile dysfunction Glucosuria Hyperglycemia due to type 2 diabetes mellitus Hypogonadism male Polyneuropathy due to type 2 diabetes mellitus Historical No qualifying data Procedure/Surgical History Cholecystectomy, Colonoscopy, Tonsillectomy. Medications aspirin 81 mg oral capsule, Oral, q4hr atenolol 100 mg Tab, Oral, Daily gabapentin 100 mg Cap, Oral, TID glimepiride 1 mg Tab, Oral, Daily lisinopril 30 mg Tab, Oral, Daily metformin 1000 mg oral tablet, Oral, BID Novolin 70/30, SubCutaneous Pravachol 40 mg Tab, Oral, Daily testosterone cypionate 200 mg/mL IM Gaye, 200 mg= 1 mL, IntraMuscular, q2wk, 5 refills Tylenol, Oral vardenafil 20 mg Tab, See Instructions, PRN, 3 refills vitamin E, Oral, Daily Allergies No Known Medication Allergies Social History Tobacco Never (less than (more content not included)... [facility] Comment on above: Result Comment: Elec tronically Signed By: Wojciech GUERRERO, Emerald Arteaga\.br\Date and Time Signed: 11/15/22 08:53 EDT Lab Reportson 11-10-2022 Lab Reports [id number] [id number]:127 Normal [facility] Reports [id number] [id number]:[id number] Normal [facility] TESTOSTERONE, TOTALon 2022 Testosterone [Mass/Vol] 515 ng/dL Normal 264-916 [facility] Comment on above: Result Comment: Adul t male reference interval is based on a population of healthy nonobese males (BMI <30) between 19 and 39 years old. jaime Stephen.al. JCEM 2017,102;6705-3451. PMID: [id number]. Performed By: #### T ESTTOT #### [facility] [address] [place] [address] Dr. Syl Figueroa CBC AUTO DIFFon 11-07-2022 BASO # 0.1 103/ul Normal 0.0-0.1 [facility] Comment on above: Performed By: #### C BC #### [facility] [address] [place] [address] Dr. Sly Figueroa Basophils/100 WBC (Bld) 0.5 % Normal 0.2-2.0 [facility] Comment on above: Performed By: #### C BC #### [facility] [address] [place] [address] Dr. Sly Figueroa EO # 0.1 103/ul Normal 0.0-0.7 [facility] Comment on above: Performed By: #### C BC #### [facility] [address] [place] [address] Dr. Sly Figueroa Eosinophils/100 WBC (Bld) 0.7 % Critically low 0.9-7.0 [facility] Comment on above: Performed By: #### C BC #### [facility] [address] [place] [address] Dr. Sly Figueroa Erythrocyte distribution width (RBC) [Ratio] 12.1 % Normal 11.0-15.0 [facility] Comment on above: Performed By: #### C BC #### [facility] [address] [place] [address] Dr. Sly Figueroa Hematocrit (Bld) [Volume fraction] 49.4 % Normal 42.0-54.0 [facility] Comment on above: Performed By: #### C BC #### [facility] [address] [place] [address] Dr. Sly Figueroa Hemoglobin (Bld) [Mass/Vol] 16.5 g/dL Normal 14.0-18.0 [facility] Comment on above: Performed By: #### C BC #### [facility] [address] [place] [address] Dr. Sly Figueroa IG # 0.09 10e3/ul Critically high 0.00-0.03 [facility] Comment on above: Performed By: #### C BC #### [facility] [address] [place] [address] Dr. Sly Figueroa IG % 0.8 % Critically high 0.0-0.5 [facility] Comment on above: Performed By: #### C BC #### [facility] [address] [place] [address] Dr. Sly Figueroa LYMPH # 3.5 103/ul Normal 1.2-3.8 [facility] Comment on above: Performed By: #### C BC #### [facility] [address] [place] [address] Dr. Sly Figueroa Lymphocytes/100 WBC (Bld) 29.8 % Normal 20.5-60.0 [facility] Comment on above: Performed By: #### C BC #### [facility] [address] [place] [address] Dr. Sly Figueroa MANUAL DIFF REQ NO Normal [facility] Comment on above: Performed By: #### C BC #### [facility] [address] [place] [address] Dr. Sly Figueroa MCH (RBC) [Entitic mass] 29.5 pg Normal 25.9-34.0 [facility] Comment on above: Performed By: #### C BC #### [facility] [address] [place] [address] Dr. Sly Figueroa MCHC (RBC) [Mass/Vol] 33.4 g/dL Normal 29.9-35.2 [facility] Comment on above: Performed By: #### C BC #### [facility] [address] [address] [address] Sly Figueroa MCV (RBC) [Entitic vol] 88.2 fL Normal 80.0-94.0 [facility] Comment on above: Performed By: #### C BC #### [facility] [address] [address] [address] Sly Figueroa MONO # 1.0 103/ul Critically high 0.3-0.8 [facility] Comment on above: Performed By: #### C BC #### [facility] [address] [address] [address] Sly Figueroa Monocytes/100 WBC (Bld) 8.6 % Normal 1.7-12.0 [facility] Comment on above: Performed By: #### C BC #### [facility] [address] [address] [address] Sly Figueroa NEUT # 7.1 103/ul Critically high 1.4-6.5 [facility] Comment on above: Performed By: #### C BC #### [facility] [address] [address] [address] Sly Figueroa Neutrophils/100 WBC (Bld) 59.6 % Normal 43.0-75.0 [facility] Comment on above: Performed By: #### C BC #### [facility] [address] [address] [address] Sly Figueroa Platelet mean volume (Bld) [Entitic vol] 9.2 fL Critically low 9.5-13.5 [facility] Comment on above: Performed By: #### C BC #### [facility] [address] [address] [address] Sly Figueroa PLT 325 103/ul Normal 150-450 [facility] Comment on above: Performed By: #### C BC #### [facility] [address] [address] [address] Sly Figueroa RBC 5.60 106/ul Normal 4.70-6.10 [facility] Comment on above: Performed By: #### C BC #### [facility] [address] [address] [address] Sly Figueroa WBC 11.9 103/ul Critically high 4.0-11.0 [facility] Comment on above: Performed By: #### C BC #### [facility] [address] [address] [address] Sly Figueroa GLYCOHEMOGLOBIN A1Con 2022 ADA RECOMMENDATION SEE BELOW Normal [facility] Comment on above: Result Comment: ADA RECOMMENDED LIMIT 4.0 - 6.0 ADA THERAPEUTIC TARGET < 7.0 ACTION SUGGESTED > 7.0 Performed By: #### A 1C #### [facility] [address] [address] [address] Sly Figueroa Glucose [Mass/Vol] 203 mg/dL Normal [facility] Comment on above: Performed By: #### A 1C #### [facility] [address] [address] [address] Sly Figueroa HbA1c (Bld) [Mass fraction] 8.7 % Critically high 4.5-6.2 [facility] Comment on above: Performed By: #### A 1C #### [facility] [address] [address] [address] Sly Figueroa Ambulatory Visit Summaryon 0 10-31-2022 Ambulatory Visit Summary SUAD CORDERO :1960 Visit Date:10/31/2022 Ambulatory Visit Instructions Your Diagnosis Hypogonadism male Your Care Team Attending Physician - MONICA GRULLON PA-C Primary Care Physician - MART JIANG DO This Is Your Medications List acetaminophen (Tylenol) aspirin (aspirin 81 mg oral capsule) atenolol (atenolol 100 mg Tab) gabapentin (gabapentin 100 mg Cap) glimepiride (glimepiride 1 mg Tab) insulin isophane-insulin regular (Novolin 70/30) lisinopril (lisinopril 30 mg Tab) metformin (metformin 1000 mg oral tablet) pravastatin (Pravachol 40 mg Tab) testosterone (testosterone cypionate 200 mg/mL IM Gaye) testosterone (testosterone cypionate 200 mg/mL intramuscular solution) vardenafil (vardenafil 20 mg Tab) vitamin E Procedures Performed Cholecystectomy, Colonoscopy, Tonsillectomy. What to do next Scheduled Follow-Up Appointments Sunday 8:00 AM EDT With: Wojciech GUERRERO, Emeradl Arteaga Where: [facility] Ambulatory Visit Summaryon 0 10-03-2022 Ambulatory Visit Summary SUAD CORDERO :1960 Visit Date:10/03/2022 Ambulatory Visit Instructions Your Diagnosis Hypogonadism male Your Care Team Attending Physician - MONICA GRULLON PA-C Primary Care Physician - MART JIANG DO This Is Your Medications List acetaminophen (Tylenol) aspirin (aspirin 81 mg oral capsule) atenolol (atenolol 100 mg Tab) gabapentin (gabapentin 100 mg Cap) glimepiride (glimepiride 1 mg Tab) insulin isophane-insulin regular (Novolin 70/30) lisinopril (lisinopril 30 mg Tab) metformin (metformin 1000 mg oral tablet) pravastatin (Pravachol 40 mg Tab) testosterone (testosterone cypionate 200 mg/mL IM Gaye) testosterone (testosterone cypionate 200 mg/mL intramuscular solution) vardenafil (vardenafil 20 mg Tab) vitamin E Procedures Performed Cholecystectomy, Colonoscopy, Tonsillectomy. What to do next Scheduled Follow-Up Appointments Sunday 3:30 PM EST With: Where: [facility] [address] [place] [address]- \.br\ Medications\.br\ What How Much When Instructions\.br\ Unchanged acetaminophen (Tylenol) By Mouth\.br\ Unchanged aspirin (aspirin 81 mg oral capsule) By Mouth Every 4 hours\.br\ Unchanged atenolol (atenolol 100 mg Tab) By Mouth Every day\.br\ Unchanged gabapentin (gabapentin 100 mg Cap) By Mouth 3 times a day\.br\ Unchanged glimepiride (glimepiride 1 mg Tab) By Mouth Every day\.br\ Unchanged insulin isophane-insulin regular (Novolin 70/ 30) Subcutaneous\.br\ Unchanged lisinopril (lisinopril 30 mg Tab) By Mouth Every day\.br\ Unchanged metformin (metformin 1000 mg oral tablet) By Mouth 2 times a day\.br\ Unchanged pravastatin (Pravachol 40 mg Tab) By Mouth Every day\.br\ Unchanged testosterone (testosterone cypionate 200 mg/ mL IM Gaye) 1 Milliliter Intramuscular Every other week\.br\ Unchanged testosterone (testosterone cypionate 200 mg/ mL intramuscular solution) 200 Milligram Intramuscular Every 4 weeks\.br\ Unchanged vardenafil (vardenafil 20 mg Tab) See instructions 1 tab(s) Oral Daily 1 hour before sexual activity \.br\ Unchanged vitamin E By Mouth Every day\.br\ Medications and Immunizations Administered\.br\ Given\.br\ Depo-Testosterone 200 mg/mL intramuscular solution, 1 mL, IntraMuscular. For: Hypogonadism male\.br\ Allergies\.br\ No Known Medication Allergies\.br\ Problems\.br\ Ongoing - Any problem that you are currently receiving treatment for.\.br\ BPH with urinary obstruction\.br\ Erectile dysfunction\.br\ Hyperglycemia due to type 2 diabetes mellitus\.br\ Hypogonadism male\.br\ Polyneuropathy due to type 2 diabetes mellitus\.br\ \.br\ [facility] Ambulatory Visit Summaryon 0 09-19-2022 Ambulatory Visit Summary SUAD CORDERO :1960 Visit Date:09/19/2022 Ambulatory Visit Instructions Your Diagnosis Hypogonadism male Your Care Team Attending Physician - MONICA GRULLON PA-C Primary Care Physician - MART JIANG DO This Is Your Medications List acetaminophen (Tylenol) aspirin (aspirin 81 mg oral capsule) atenolol (atenolol 100 mg Tab) gabapentin (gabapentin 100 mg Cap) glimepiride (glimepiride 1 mg Tab) insulin isophane-insulin regular (Novolin 70/30) lisinopril (lisinopril 30 mg Tab) metformin (metformin 1000 mg oral tablet) pravastatin (Pravachol 40 mg Tab) testosterone (testosterone cypionate 200 mg/mL IM Gaye) testosterone (testosterone cypionate 200 mg/mL intramuscular solution) vardenafil (vardenafil 20 mg Tab) vitamin E Procedures Performed Cholecystectomy, Colonoscopy, Tonsillectomy. What to do next Scheduled Follow-Up Appointments Sunday 3:30 PM EST With: Where: [facility] Invalid Interpretation Code [address] [place] [address] [place] [address]- \.br\ Sunday 8:30 AM EDT \.br\ With: Wojciech GUERRERO, Emerald Arteaga\.br\ Where: [facility] Ambulatory Visit Summaryon 0 09-05-2022 Ambulatory Visit Summary SUAD CORDERO :1960 Visit Date:09/05/2022 Ambulatory Visit Instructions Your Diagnosis Hypogonadism male Your Care Team Attending Physician - MONICA GRULLON PA-C Primary Care Physician - MART JIANG DO This Is Your Medications List acetaminophen (Tylenol) aspirin (aspirin 81 mg oral capsule) atenolol (atenolol 100 mg Tab) gabapentin (gabapentin 100 mg Cap) glimepiride (glimepiride 1 mg Tab) insulin isophane-insulin regular (Novolin 70/30) lisinopril (lisinopril 30 mg Tab) metformin (metformin 1000 mg oral tablet) pravastatin (Pravachol 40 mg Tab) testosterone (testosterone cypionate 200 mg/mL IM Gaye) testosterone (testosterone cypionate 200 mg/mL intramuscular solution) vardenafil (vardenafil 20 mg Tab) vitamin E Procedures Performed Cholecystectomy, Colonoscopy, Tonsillectomy. What to do next Scheduled Follow-Up Appointments Sunday 3:30 PM EST With: Where: [facility] Invalid Interpretation Code [address] [place] [address]- \.br\ Sunday 3:30 PM EST \.br\ With:\.br\ Where: [facility] TESTOSTERONE, TOTALon 2021 Testosterone [Mass/Vol] 364 ng/dL Normal 264-916 [facility] Comment on above: Result Comment: Adul t male reference interval is based on a population of healthy nonobese males (BMI <30) between 19 and 39 years old. Zafar, et.al. JCEM 2017,102;8805-6355. PMID: [id number]. Performed By: #### T ESTTOT #### [facility] [address] [place] [address] Dr. Sly Figueroa MICROALBUMIN URINEon 022 Albumin, Urine 16.7 ug/mL Normal Not Estab. [facility] Comment on above: Performed By: #### A 1C #### [facility] [address] [place] [address] Dr. Sly Figueroa CBC W MANUAL DIFFon 04-14-20 22 ATYPICAL LYMPH # 0.97 103/ul Normal [facility] Comment on above: Performed By: #### C BLAZE #### [facility] [address] [place] [address] Dr. Sly Figueroa ATYPICAL LYMPH % 8 % Normal [facility] Comment on above: Performed By: #### C BLAZE #### [facility] [address] [place] [address] Dr. Sly Figueroa BAND # Normal 0.0-0.3 [facility] Comment on above: Performed By: #### C BCMAN #### [facility] [address] [place] [address] Dr. Sly Figueroa BAND % Normal 0-5 [facility] Comment on above: Performed By: #### C BCMAN #### [facility] [address] [place] [address] Dr. Sly Figueroa BASOM # 0.00 103/ul Normal 0.00-0.10 [facility] Comment on above: Performed By: #### C BLAZE #### [facility] [address] [place] [address] Dr. Sly Figueroa BASOM % 0.0 % Critically low 0.2-2.0 [facility] Comment on above: Performed By: #### C BLAZE #### [facility] [address] [place] [address] Dr. Sly Figueroa BLAST # Normal [facility] Comment on above: Performed By: #### C BLAZE #### [facility] [address] [place] [address] Dr. Sly Figueroa BLAST % Normal [facility] Comment on above: Performed By: #### C BLAZE #### [facility] [address] [place] [address] Dr. Sly Figueroa CORRECTED WBC Normal 4.0-11.0 [facility] Comment on above: Performed By: #### C BLAZE #### [facility] [address] [place] [address] Dr. Sly Figueroa EOS # 0.12 103/ul Normal 0.00-0.70 [facility] Comment on above: Performed By: #### C BLAZE #### [facility] [address] [place] [address] Dr. Sly Figueroa EOS% 1.0 % Normal 0.9-7.0 [facility] Comment on above: Performed By: #### C BLAZE #### [facility] [address] [place] [address] Dr. Sly Figueroa HCT 46.2 % Normal 42.0-54.0 [facility] Comment on above: Performed By: #### C BLAZE #### [facility] [address] [place] [address] Dr. Sly Figueroa HGB 15.2 g/dl Normal 14.0-18.0 [facility] Comment on above: Performed By: #### C BLAZE #### [facility] [address] [place] [address] Dr. Sly Figueroa LYMPHM # 4.60 103/ul Critically high 1.20-3.80 [facility] Comment on above: Performed By: #### C BLAZE #### [facility] [address] [place] [address] Dr. Sly Figueroa LYMPHM% 38.0 % Normal 20.5-60.0 [facility] Comment on above: Performed By: #### C BLAZE #### [facility] [address] [place] [address] Dr. Sly Figueroa MCH 29.9 pg Normal 25.9-34.0 [facility] Comment on above: Performed By: #### C BLAZE #### [facility] [address] [place] [address] Dr. Sly Figueroa MCHC 32.9 g/dl Normal 29.9-35.2 [facility] Comment on above: Performed By: #### C BLAZE #### [facility] [address] [place] [address] Dr. Sly Figueroa MCV 90.9 fL Normal 80.0-94.0 [facility] Comment on above: Performed By: #### C BCDELFINA #### [facility] [address] [place] [address] Dr. Sly Figueroa METAMYELOCYTE # Normal [facility] Comment on above: Performed By: #### C BLAZE #### [facility] [address] [place] [address] Dr. Sly Figueroa METAMYELOCYTE % Normal [facility] Comment on above: Performed By: #### C BLAZE #### [facility] [address] [place] [address] Dr. Sly Figueroa MONOM# 1.09 103/ul Critically high 0.30-0.80 [facility] Comment on above: Performed By: #### C BLAZE #### [facility] [address] [place] [address] Dr. Sly Figueroa MONOM% 9.0 % Normal 1.7-12.0 [facility] Comment on above: Performed By: #### C BCDELFINA #### [facility] [address] [place] [address] Dr. Sly Figueroa MPV 10.6 fL Normal 9.5-13.5 [facility] Comment on above: Performed By: #### C BCMAN #### [facility] [address] [place] [address] Dr. Sly Figueroa MYELOCYTE # Normal [facility] Comment on above: Performed By: #### C BLAZE #### [facility] [address] [place] [address] Dr. Sly Figueroa MYELOCYTE % Normal [facility] Comment on above: Performed By: #### C BLAZE #### [facility] [address] [place] [address] Dr. Sly Figueroa NRBC Normal [facility] Comment on above: Performed By: #### C BLAZE #### [facility] [address] [place] [address] Dr. Sly Figueroa PLT 294 103/ul Normal 150-450 [facility] Comment on above: Performed By: #### C BLAZE #### [facility] [address] [address] [address] Sly Figueroa RBC 5.08 106/ul Normal 4.70-6.10 [facility] Comment on above: Performed By: #### C BLAZE #### [facility] [address] [place] [address] Dr. Sly Figueroa RDW 12.5 % Normal 11.0-15.0 [facility] Comment on above: Performed By: #### C BLAZE #### [facility] [address] [place] [address] Dr. Sly Figueroa SEG # 5.32 103/ul Normal 1.40-6.50 [facility] Comment on above: Performed By: #### C BLAZE #### [facility] [address] [place] [address] Dr. Sly Figueroa SEG % 44.0 % Normal 43.0-75.0 [facility] Comment on above: Performed By: #### C BLAZE #### [facility] [address] [place] [address] Dr. Sly Figueroa WBC 12.1 103/ul Critically high 4.0-11.0 [facility] Comment on above: Performed By: #### C BLAZE #### [facility] [address] [place] [address] Dr. Sly Figueroa GLYCOHEMOGLOBIN A1Con 2021 ADA RECOMMENDATION SEE BELOW Normal [facility] Comment on above: Result Comment: ADA RECOMMENDED LIMIT 4.0 - 6.0 ADA THERAPEUTIC TARGET < 7.0 ACTION SUGGESTED > 7.0 Performed By: #### A 1C #### [facility] [address] [address] [address] Sly Figueroa Glucose [Mass/Vol] 163 mg/dL Normal [facility] Comment on above: Performed By: #### A 1C #### [facility] [address] [address] [address] Sly Figueroa HbA1c (Bld) [Mass fraction] 7.3 % Critically high 4.5-6.2 [facility] Comment on above: Performed By: #### A 1C #### [facility] [address] [address] [address] Sly Figueroa LIPID PROFILEon 04-14-2022 CHOL-HDL RATIO NORM SEE BELOW Normal [facility] Comment on above: Result Comment: 3.3 - 4.4 LOW RISK 4.4 - 7.1 AVERAGE RISK 7.1 - 11.0 MODERATE RISK >11.0 HIGH RISK Performed By: #### A 1C #### [facility] [address] [place] [address] Dr. Sly Figueroa Cholesterol [Mass/Vol] 145 mg/dL Normal <=200 [facility] Comment on above: Performed By: #### A 1C #### [facility] [address] [place] [address] Dr. Sly Figueroa Cholesterol in HDL [Mass/Vol] 42 mg/dL Normal 40-60 [facility] Comment on above: Performed By: #### A 1C #### [facility] [address] [place] [address] Dr. Sly Figueroa Cholesterol in LDL [Mass/Vol] 75.2 mg/dL Normal [facility] Comment on above: Performed By: #### A 1C #### [facility] [address] [address] [address] Sly Figueroa Cholesterol.total/C holesterol in HDL [Mass ratio] 3.5 {ratio} Normal [facility] Comment on above: Performed By: #### A 1C #### [facility] [address] [place] [address] Dr. Sly Figueroa HDL NORMAL > or = 60 mg/dl - LOW CARDIOVASCULAR RISK <40 mg/dl - HIGH CARDIOVASCULAR RISK Normal [facility] Comment on above: Performed By: #### A 1C #### [facility] [address] [place] [address] Dr. Sly Figueroa LDL CALC NORMAL SEE BELOW Normal [facility] Comment on above: Result Comment: <100 mg/dl OPTIMAL 100 - 129 mg/dl NEAR OR ABOVE OPTIMAL 130 - 159 mg/dl BORDERLINE HIGH 160 - 189 mg/dl HIGH >190 mg/dl VERY HIGH Performed By: #### A 1C #### [facility] [address] [place] [address] Dr. Sly Figueroa Triglyceride [Mass/Vol] 139 mg/dL Normal <=150 [facility] Comment on above: Performed By: #### A 1C #### [facility] [address] [place] [address] Dr. Sly Figueroa VLDL CALC 27.8 mg/dL Normal [facility] Comment on above: Performed By: #### A 1C #### [facility] [address] [place] [address] Dr. Sly Figueroa PROF 14(COMP METB)on 022 Albumin [Mass/Vol] 3.5 g/dL Normal 3.4-5.0 [facility] Comment on above: Performed By: #### A 1C #### [facility] [address] [place] [address] Dr. Sly Figueroa Albumin/Globulin [Mass ratio] 0.9 {ratio} Normal [facility] Comment on above: Performed By: #### A 1C #### [facility] [address] [place] [address] Dr. Sly Figueroa ALP [Catalytic activity/Vol] 77 U/L Normal 46-116 [facility] Comment on above: Performed By: #### A 1C #### [facility] [address] [place] [address] Dr. Sly Figueroa ALT [Catalytic activity/Vol] 19 U/L Normal 16-63 [facility] Comment on above: Performed By: #### A 1C #### [facility] [address] [place] [address] Dr. Sly Figueroa Anion gap [Moles/Vol] 14.3 mmol/L Normal [facility] Comment on above: Performed By: #### A 1C #### [facility] [address] [place] [address] Dr. lSy Figueroa AST [Catalytic activity/Vol] 22 U/L Normal 15-37 [facility] Comment on above: Performed By: #### A 1C #### [facility] [address] [place] [address] Dr. Sly Figueroa Bilirubin [Mass/Vol] 1.3 mg/dL Critically high 0.2-1.0 [facility] Comment on above: Performed By: #### A 1C #### [facility] [address] [place] [address] Dr. Sly Figueroa Calcium [Mass/Vol] 9.1 mg/dL Normal 8.5-10.1 [facility] Comment on above: Performed By: #### A 1C #### [facility] [address] [place] [address] Dr. Sly Figueroa Chloride [Moles/Vol] 99 mmol/L Normal 98-107 [facility] Comment on above: Performed By: #### A 1C #### [facility] [address] [place] [address] Dr. Sly Figueroa CO2 [Moles/Vol] 25.2 mmol/L Normal 21.0-32.0 [facility] Comment on above: Performed By: #### A 1C #### [facility] [address] [place] [address] Dr. Sly Figueroa Creatinine [Mass/Vol] 1.08 mg/dL Normal 0.70-1.30 [facility] Comment on above: Performed By: #### A 1C #### [facility] [address] [place] [address] Dr. Sly Figueroa EGFR-AF AZERBAIJANI 60 mL/min/1.73m2 Normal >=60 [facility] Comment on above: Performed By: #### A 1C #### [facility] [address] [place] [address] Dr. Sly Figueroa EGFR-NON AF AZERBAIJANI >60 Normal >=60 [facility] Comment on above: Performed By: #### A 1C #### [facility] [address] [address] [address] Sly Figueroa Globulin (S) [Mass/Vol] 4.1 g/dL Normal [facility] Comment on above: Performed By: #### A 1C #### [facility] [address] [address] [address] Sly Figueroa Glucose [Mass/Vol] 203 mg/dL Critically high 74-106 [facility] Comment on above: Performed By: #### A 1C #### [facility] [address] [address] [address] Sly Figueroa Potassium [Moles/Vol] 4.5 mmol/L Normal 3.5-5.1 [facility] Comment on above: Performed By: #### A 1C #### [facility] [address] [place] [address] Dr. Sly Figueroa Protein [Mass/Vol] 7.6 g/dL Normal 6.4-8.2 [facility] Comment on above: Performed By: #### A 1C #### [facility] [address] [address] [address] Sly Figueroa Sodium [Moles/Vol] 134 mmol/L Critically low 136-145 [facility] Comment on above: Performed By: #### A 1C #### [facility] [address] [place] [address] Dr. Sly Figueroa Urea nitrogen [Mass/Vol] 11.0 mg/dL Normal 7.0-18.0 [facility] Comment on above: Performed By: #### A 1C #### [facility] [address] [address] [address] Sly Figueroa Urea nitrogen/Creatinine [Mass ratio] 10.2 mg/mg Normal [facility] Comment on above: Performed By: #### A 1C #### [facility] [address] [place] [address] Dr. Sly Figueroa TESTOSTERONE, TOTALon 2021 Testosterone [Mass/Vol] 319 ng/dL Normal 264-916 [facility] Comment on above: Result Comment: Adul t male reference interval is based on a population of healthy nonobese males (BMI <30) between 19 and 39 years old. Zafar et.al. JCEM 2017,102;2173-7917. PMID: [id number]. Performed By: #### T ESTTOT #### [facility] [address] [place] [address] Dr. Sly Figueroa D-DIMERon 12-28-2021 D-DIMER 0.35 mg/L FEU Normal 0.19-0.50 [facility] Comment on above: Performed By: #### D DIM #### [facility] [address] [address] [address] Sly Figueroa D-DIMER COMMENTS SEE BELOW Normal [facility] Comment on above: Result Comment: Incr eases in D-Dimer concentration observed with thromboembolic events can be variable due to localization, size, and age of the thrombus. Therefore, a thromboembolic event cannot be diagnosed with certainty on the basis of the reference range. D-Dimers may also be elevated for a variety of disorders including: advanced age, , coronary disease, cancer, liver disease, infection, inflammation, hematoma, DIC, trauma, post-surgery, diabetes, thrombolytic or anticoagulant therapy, stress, and generalized hospitalization. Performed By: #### D DIM #### [facility] [address] [place] [address] Dr. Sly Figueroa GLYCOHEMOGLOBIN A1Con 2021 ADA RECOMMENDATION SEE BELOW Normal [facility] Comment on above: Result Comment: ADA RECOMMENDED LIMIT 4.0 - 6.0 ADA THERAPEUTIC TARGET < 7.0 ACTION SUGGESTED > 7.0 Performed By: #### D ATA1C #### [facility] [address] [place] [address] Dr. Sly Figueroa Glucose [Mass/Vol] 160 mg/dL Normal [facility] Comment on above: Performed By: #### D ATA1C #### [facility] [address] [place] [address] Dr. Sly Figueroa HbA1c (Bld) [Mass fraction] 7.2 % Critically high 4.5-6.2 [facility] Comment on above: Performed By: #### D ATA1C #### [facility] [address] [address] [address] Sly Figueroa Vital Signs Date Time Vital Sign Value Performing Clinician Facility 09-05-2023 10:11-0500 Diastolic blood pressure 74 mm[Hg] Emerald Lue [facility] 09-05-2023 10:11-0500 Mean blood pressure 97 mm[Hg] Emerald Lue [facility] 09-05-2023 10:11-0500 Systolic blood pressure 142 mm[Hg] Emerald Lue [facility] 09-05-2023 10:01-0500 Blood Pressure Location Emerald Lue [facility] 09-05-2023 10:01-0500 Diastolic blood pressure 72 mm[Hg] Emerald Lue [facility] 09-05-2023 10:01-0500 Heart rate 82 /min Emerald Lue [facility] 09-05-2023 10:01-0500 Systolic blood pressure 142 mm[Hg] Emerald Lue [facility] 06-12-2023 10:30-0400 Body height 182.88 cm Mart Ball Other [facility] Other 06-12-2023 10:30-0400 Body mass index (BMI) [Ratio] 50.83 kg/m2 Mart Ball Other [facility] [employer] Other 06-12-2023 10:30-0400 Body weight 170.01 kg Mart Ball Other [facility] Other 06-12-2023 10:30-0400 Diastolic blood pressure 90 mm[Hg] Mart Ball Other [facility] Other 06-12-2023 10:30-0400 Respiratory rate 20 /min Mart Ball Other [facility] Other 06-12-2023 10:30-0400 Systolic blood pressure 162 mm[Hg] Mart Ball Other [facility] Other 02-21-2023 10:02-0400 Blood Pressure Location Emerald Lue [facility] 02-21-2023 10:02-0400 Diastolic blood pressure 70 mm[Hg] Emerald Lue [facility] 02-21-2023 10:02-0400 Heart rate 79 /min Emerald Lue [facility] 02-21-2023 10:02-0400 Respiratory rate 16 /min Emerald Lue [facility] 02-21-2023 10:02-0400 Systolic blood pressure 149 mm[Hg] Emerald Lue [facility] 11-17-2022 11:00-0400 Body height 182.88 cm Mart Ball Other [facility] Other 11-17-2022 11:00-0400 Body mass index (BMI) [Ratio] 50.5 kg/m2 Mart Ball Other [facility] Other 11-17-2022 11:00-0400 Body weight 168.92 kg Mart Ball Other [place] [employer] Other 11-17-2022 11:00-0400 Diastolic blood pressure 82 mm[Hg] Mart Ball Other [facility] [employer] Other 11-17-2022 11:00-0400 Respiratory rate 12 /min Mart Ball Other [facility] [employer] Other 11-17-2022 11:00-0400 Systolic blood pressure 130 mm[Hg] Mart Ball Other [facility] [employer] Other 11-15-2022 08:04-0400 Blood Pressure Location Emerald Lue [facility] 11-15-2022 08:04-0400 Diastolic blood pressure 72 mm[Hg] Emerald Lue [facility] 11-15-2022 08:04-0400 Heart rate 94 /min Emerald Lue [facility] 11-15-2022 08:04-0400 Respiratory rate 16 /min Emerald Lue [facility] 11-15-2022 08:04-0400 Systolic blood pressure 136 mm[Hg] Emerald Lue [facility] 02-07-2022 09:38-0400 Blood Pressure Location Lea Mahoney Jr. [facility] 02-07-2022 09:38-0400 Diastolic blood pressure 72 mm[Hg] Lea Mahoney Jr. [facility] 02-07-2022 09:38-0400 Heart rate 71 /min Lea Denzel Hansen. [facility] 02-07-2022 09:38-0400 Respiratory rate 16 /min Lea Denzel Hansen. [facility] 02-07-2022 09:38-0400 Systolic blood pressure 125 mm[Hg] Lea Denzel Hansen. [facility] Encounters Encounter Date Encounter Type Care Provider Facility Start: 04-08-2024 End: 04-08-2024 ambulatory JUAN MANUEL MCCLELLAND Not Available Start: 09-05-2023 ambulatory Emerald M. Lue Facility:[facility] Start: 09-05-2023 End: 09-05-2023 Patient encounter procedure Emerald M. Lue [facility] Start: 08-22-2023 End: 08-23-2023 ambulatory Emerald M. Lue Facility:[facility] Start: 08-22-2023 End: 08-22-2023 Patient encounter procedure Emerald M. Lue [facility] Start: 08-07-2023 End: 08-08-2023 ambulatory Emerald M. Lue Facility:[facility] Start: 08-07-2023 End: 08-07-2023 Patient encounter procedure Emerald M. Lue [facility] Start: 07-24-2023 End: 07-25-2023 ambulatory Emerald M. Lue Facility:[facility] Start: 07-24-2023 End: 07-24-2023 Patient encounter procedure Emerald M. Lue [facility] Start: 07-10-2023 End: 07-11-2023 ambulatory Emerald M. Lue Facility:[facility] Start: 07-10-2023 End: 07-10-2023 Patient encounter procedure Emerald M. Lue [facility] Start: 06-26-2023 End: 06-27-2023 ambulatory Emerald M. Lue Facility:[facility] Start: 06-26-2023 End: 06-26-2023 Patient encounter procedure Emerald M. Lue [facility] [employer] Start: 06-13-2023 End: 06-13-2023 ambulatory Mart Jiang Other [facility] Other Start: 06-13-2023 Telephone encounter Mart Jiang [facility] Start: 06-12-2023 Encounter for genera l adult medical examination without abnormal findings Mart Jiang [facility] Start: 06-12-2023 Periodic preventive med est patient 40-[address] [facility] Start: 06-12-2023 End: 06-13-2023 ambulatory Emerald M. Lue [facility] Other Start: 05-29-2023 End: 05-30-2023 ambulatory Emerald M. Lue Facility:[facility] Start: 05-29-2023 End: 05-29-2023 Patient encounter procedure Emerlad M. Lue [facility] Start: 05-23-2023 ambulatory Emerald M. Lue Facility:[facility] Start: 05-16-2023 End: 05-17-2023 ambulatory Emerald M. Lue Facility:[facility] Start: 05-02-2023 End: 05-03-2023 ambulatory Emerald M. Lue Facility:[facility] Start: 05-02-2023 End: 05-02-2023 Patient encounter procedure Emerald Noonan. [place] [facility] [employer] Start: 04-18-2023 End: 04-19-2023 ambulatory Emerald M. Lue Facility:[facility] Start: 04-18-2023 End: 04-18-2023 Patient encounter procedure Emerald M. Lue [facility] [employer] Start: 04-04-2023 End: 04-05-2023 ambulatory Emerald M. Lue Facility:[facility] Start: 04-04-2023 End: 04-04-2023 Patient encounter procedure Emerald Noonan. [place] [facility] Start: 03-19-2023 End: 03-20-2023 ambulatory MONICA Adonis MITCHEL Facility:[facility] Start: 03-19-2023 End: 03-19-2023 Patient encounter procedure MONICA E MITCHEL [facility] [employer] Start: 03-06-2023 End: 03-07-2023 ambulatory ALLEGRAER B MITCHEL Facility:[facility] Start: 03-06-2023 End: 03-06-2023 Patient encounter procedure CHRISTOPHER B MITCHEL [facility] [employer] Start: 02-21-2023 End: 02-22-2023 ambulatory Emerald M. Lue Facility:[facility] Start: 02-21-2023 End: 02-21-2023 Patient encounter procedure Emerald Jeffrey [facility] [employer] Start: 02-07-2023 End: 02-08-2023 ambulatory [facility] Start: 02-07-2023 End: 02-07-2023 Patient encounter procedure MONICA Adonis GRULLON [facility] Start: 01-24-2023 End: 01-25-2023 ambulatory MONICA Adonis GRULLON Facility:[facility] Start: 01-24-2023 End: 01-24-2023 Patient encounter procedure MONICA GRULLON [facility] [employer] Start: 01-23-2023 End: 01-23-2023 ambulatory Mart Jiang Other [facility] [employer] Other Start: 01-23-2023 Telephone encounter Mart Jiang [facility] Start: 01-09-2023 End: 01-10-2023 ambulatory Emerald Jeffrey Facility: [facility] Start: 12-27-2022 End: 12-28-2022 ambulatory Emerald MLenka Grijalvae Facility: [facility] Start: 12-27-2022 End: 12-27-2022 Patient encounter procedure Emerald Grijalvae [facility] [employer] Start: 12-13-2022 End: 12-14-2022 ambulatory Emerald Arteaga Lue Facility:[facility] Start: 12-13-2022 End: 12-13-2022 Patient encounter procedure Emerald MLenka Grijalvae [facility] [employer] Start: 11-29-2022 End: 11-30-2022 ambulatory Emeraldnatalia Jeffrey Facility:[facility] Start: 11-29-2022 End: 11-29-2022 Patient encounter procedure Emerald Jeffrey [facility] Start: 11-17-2022 End: 11-17-2022 ambulatory Mart Jiang Other [facility] [employer] Other Start: 11-17-2022 Office outpatient visit [address] [facility] Start: 11-15-2022 End: 11-16-2022 ambulatory Emerald Chandler Jeffrey Facility:[facility] Start: 11-15-2022 End: 11-15-2022 Patient encounter procedure Emerald Jeffrey [facility] Start: 11-07-2022 End: 11-08-2022 ambulatory EMERALD JEFFREY . Facility: Start: 10-31-2022 End: 11-01-2022 ambulatory MONICA E MITCHEL Facility:[facility] Start: 10-31-2022 End: 10-31-2022 Patient encounter procedure [facility] Start: 10-17-2022 End: 10-18-2022 ambulatory MONICA E MITCHEL Facility:[facility] Start: 10-17-2022 End: 10-17-2022 Patient encounter procedure MONICA E MITCHEL [facility] Start: 10-03-2022 End: 10-04-2022 ambulatory MONICA E MITCHEL Facility:[facility] Start: 10-03-2022 End: 10-03-2022 Patient encounter procedure MONICA E MITCHEL [facility] [employer] Start: 09-19-2022 End: 09-20-2022 ambulatory MONICA E MITCHEL Facility:[facility] Start: 09-19-2022 End: 09-19-2022 Patient encounter procedure MONICA E MITCHEL [facility] [employer] Start: 09-05-2022 End: 09-06-2022 ambulatory MONICA E MITCHEL Facility:[facility] Start: 08-23-2022 End: 08-23-2022 Patient encounter procedure Emerald Jeffrey [facility] [employer] Start: 08-09-2022 End: 08-09-2022 Patient encounter procedure Emerald Jeffrey [facility] [employer] Start: 07-26-2022 End: 07-27-2022 ambulatory MONICA GRULLON Facility: Start: 07-12-2022 End: 07-12-2022 Patient encounter procedure MONICA Adonis MITCHEL [facility] [employer] Start: 06-07-2022 End: 06-07-2022 Patient encounter procedure MONICA E MITCHEL [facility] [employer] Start: 05-03-2022 End: 05-03-2022 Patient encounter procedure MONICA E MITCHEL [facility] [employer] Start: 04-17-2022 Encounter for genera l adult medical examination without abnormal findings DR MART JIANG [facility] Start: 04-14-2022 End: 04-15-[address] MART JIANG Facility:[facility] Start: 04-14-2022 End: 04-15-2022 Encounter for general adult medical examination without abnormal findings DR MART JIANG Facility:[facility] Start: 04-05-2022 End: 04-05-2022 Patient encounter procedure Lea Mahoney Jr. [facility] Start: 03-29-2022 End: 03-29-2022 ambulatory DO Mart Jiang Work Phone: [facility] Work Phone: Start: 03-29-2022 End: 03-29-2022 Discharged Recurring DO Mart Jiang Work Phone: [facility] [address] Start: 03-07-2022 End: 03-07-2022 Patient encounter procedure Lea Mahoney Jr. [facility] Start: 02-07-2022 End: 02-07-2022 Patient encounter procedure Lea Mahoney Jr. [facility] Start: 12-28-2021 End: 12-29-[address] MART JIANG Facility:[facility] Start: 12-28-2021 End: 12-29-[address] MART JIANG Facility:[facility] Start: 12-14-2021 End: 12-14-2021 Patient encounter procedure MONICA GRULLON [facility] Start: 11-14-2021 End: 11-14-2021 Patient encounter procedure Lea Mahoney Jr. [facility] Procedures Date Procedure Procedure Detail Performing Clinician Start: 07-26-[address] NONE L ISTED REQUEST Comment on above: Performed By: #### P SAD #### [facility] [address] [address] [address] Sly Figueroa Start: 04-14-[address] ROBIN Patricia ISTED REQUEST Comment on above: Performed By: #### P SASC #### [facility] [address] [address] [address] Sly Figueroa Cholecystectomy Lea Mahoney Jr. Colonoscopy Lea Og Tonsillectomy Lea chakraborty Immunizations Immunization Date Immunization Notes Care Provider Fa [facility] 06-11-2023 influenza virus vaccine, unspecified formulation Emerald Lue [facility] 05-29-2023 influenza virus vaccine, unspecified formulation Emerald Lue [facility] 05-23-2022 influenza virus vaccine, unspecified formulation Emerald Lue [facility] 07-20-2021 SARS-CoV-2 (COVID-19 ) mRNA BNT-162b2 vax Emerald Lue [facility] Comment on above: Result Comment: 2021: [id number] 06-01-2021 influenza virus vaccine, unspecified formulation Emerald Lue [facility] 12-08-2020 SARS-CoV-2 (COVID-19 ) mRNA BNT-162b2 vax Emerald Lue [facility] 11-17-2020 SARS-CoV-2 (COVID-19 ) mRNA BNT-162b2 vax Emerald Lue [facility] Payers Date Payer Category Payer Medicare [id number] 2023 Unknown [id number] 1960 Self-pay [id number] 1960 Unknown [id number] 1959 Unknown [id number] 2.16.84 0.1.058528.3.579.2.593 1959 Unknown [id number] 2.16.84 0.1.192957.3.579.2.593 1959 Unknown [id number] 2.16.84 0.1.127627.3.579.2.593 1959 Unknown [id number] 2.16.84 0.1.018132.3.579.2.593 1959 Unknown [id number] 2.16.84 0.1.643782.3.579.2.593 1959 Unknown [id number] 2.16.8 40.1.489916.3.579.2.727 1959 Unknown [id number] 2.16.8 40.1.801856.3.579.2.727 1959 Unknown [id number] 2.16.8 40.1.356106.3.579.2.727 1959 Unknown [id number] 2.16.8 40.1.706595.3.579.2.727 1959 Unknown [id number] 2.16.8 40.1.194509.3.579.2.727 1959 Unknown [id number] 2.16.8 40.1.741667.3.579.2.727 1959 Unknown [id number] 2.16.8 40.1.609339.3.579.2.72 1959 Unknown [id number] 2.16.8 40.1.325364.3.579.2 1959 Unknown [id number] 2.16.8 40.1.490205.3.579.2 1959 Unknown [id number] .16.8 40.1.800175.3.579.2 1959 Unknown [id number] 2.16.8 40.1.496479.3.579. 1959 Unknown [id number] 2.16.8 40.1.717599.3.579.2 1959 Unknown [id number] 2.16.8 40.1.246040.3.579. 1959 Unknown [id number] 2.16.8 40.1.135879.3.579. 1959 Unknown [id number] .16.8 40.1.602021.3.579. 1959 Unknown [id number] 2.16.8 40.1.584335.3.579. 1959 Unknown [id number] .16.8 40.1.036472.3.579.2 1959 Unknown [id number] 2.16.8 40.1.876384.3.579.2 1959 Unknown [id number] 2.16.8 40.1.255627.3.579.2 1959 Unknown [id number] .16.8 40.1.230655.3.579.2 1959 Unknown [id number] 2.16.8 40.1.091964.3.579. 1959 Unknown [id number] 2.16.8 40.1.553533.3.579.2 1959 Unknown [id number] 2.16.8 40.1.326095.3.579.2.727 1959 Unknown [id number] 2.16.8 40.1.899485.3.579.2.727 1959 Unknown [id number] 2.16.8 40.1.274947.3.579.2.727 1959 Unknown [id number] 2.16.8 40.1.011587.3.579.2.727 1959 Unknown [id number] 2.16.8 40.1.723112.3.579.2.727 1959 Unknown [id number] 2.16.8 40.1.799670.3.579.2.727 1959 Unknown [id number] 2.16.84 0.1.785008.3.579.2.1259 Unknown [id number] 2.16.8 40.1.198925.3.579.2.531 Unknown [id number] 2.16.84 0.1.975691.3.579.2.593 Unknown [id number] 2.16.84 0.1.445820.3.579.2.593 Social History Date Type Detail Facility Start: 07-05-2021 End: 08-09-2022 Tobacco smoking status Ex-smoker (finding) [facility] Sex Assigned At Male [facility] Start: 1960 Sex Assigned At Male F [facility] Tobacco smoking status Never [facility] Start: 11-15-2022 End: 09-05-2023 Tobacco smoking status Never smoked tobacco (finding) [facility] Functional Status Date Assessment Result Facility 09-05-2023 Functional Status N/A [facility] 02-21-2023 Functional Status No [facility] 11-15-2022 Functional Status N/A [facility] 08-09-2022 Functional Status N/A [facility] 02-07-2022 Functional Status N/A [facility] Clinical Notes 02-07-2022 to 09-05-2023 Note Date & Type Note Facility 09-05-2023 Hospital Discharg e instructions Patient Education 09/05/2023 10:55:33 Hypogonadism, Male Hypogonadism, Male Male hypogonadism is a condition of having a level of testosterone that is lower than normal. Testosterone is a chemical, or hormone, that is made mainly in the testicles. In boys, testosterone is responsible for the development of male characteristics during puberty. These include: Making the penis bigger. Growing and building the muscles. Growing facial hair. Deepening the voice. In adult men, testosterone is responsible for maintaining: An interest in sex and the ability to have sex. Muscle mass. Sperm production. Red blood cell production. Bone strength. Testosterone also gives men energy and a sense of well-being. Testosterone normally decreases as men age and the testicles make less testosterone. Testosterone levels can vary from man to man. Not all men will have signs and symptoms of low testosterone. Weight, alcohol use, medicines, and certain medical conditions can affect a man's testosterone level. What are the causes? This condition is caused by: A natural decrease in testosterone that occurs as a man grows older. This is the main cause of this condition. Use of medicines, such as antidepressants, steroids, and opioids. Diseases and conditions that affect the testicles or the making of testosterone. These include: ?Injury or damage to the testicles from trauma, cancer, cancer treatment, or infection. ?Diabetes. ?Sleep apnea. ?Genetic conditions that men are born with. ?Disease of the pituitary gland. This gland is in the brain. It produces hormones. ?Obesity. ?Metabolic syndrome. This is a group of diseases that affect blood pressure, blood sugar, cholesterol, and belly fat. ?HIV or AIDS. ?Alcohol abuse. ?Kidney failure. ?Other long-term or chronic diseases. What are the signs or symptoms? Common symptoms of this condition include: Loss of interest in sex (low sex drive). Inability to have or maintain an erection (erectile dysfunction). Feeling tired (fatigue). Mood changes, like irritability or depression. Loss of muscle and body hair. Infertility. Large breasts. Weight gain (obesity). How is this diagnosed? Your health care provider can diagnose hypogonadism based on: Your signs and symptoms. A physical exam to check your testosterone levels. This includes blood tests. Testosterone levels can change throughout the day. Levels are highest in the morning. You may need to have repeat blood tests before getting a diagnosis of hypogonadism. Depending on your medical history and test results, your health care provider may also do other tests to find the cause of low testosterone. How is this treated? This condition is treated with testosterone replacement therapy. Testosterone can be given by: Injection or through pellets inserted under the skin. Gels or patches placed on the skin or in the mouth. Testosterone therapy is not for everyone. It has risks and side effects. Your health care provider will consider your medical history, your risk for prostate cancer, your age, and your symptoms before putting you on testosterone replacement therapy. Follow these instructions at home: Take pixu-kkm-widisgv and prescription medicines only as told by your health care provider. Eat foods that are high in fiber, such as beans, whole grains, and fresh fruits and vegetables. Limit foods that are high in fat and processed sugars, such as fried or sweet foods. If you drink alcohol: ?Limit how much you have to 0 2 drinks a day. ?Know how much alcohol is in your drink. In the [place] one drink equals one 12 oz bottle of beer (355 mL), one 5 oz glass of wine (148 mL), or one 1 oz glass of hard liquor (44 mL). Return to your normal activities as told by your health care provider. Ask your health care provider what activities are safe for you. Keep all follow-up visits. This is important. Contact a health care provider if: You have any of the signs or symptoms of low testosterone. You have any side effects from testosterone therapy. Summary Male hypogonadism is a condition of having a level of testosterone that is lower than normal. The natural drop in testosterone production that occurs with age is the most common cause of this condition. Low testosterone can also be caused by many diseases and conditions that affect the testicles and the making of testosterone. This condition is treated with testosterone replacement therapy. There are risks and side effects of testosterone therapy. Your health care provider will consider your age, medical history, symptoms, and risks for prostate cancer before putting you on testosterone therapy. This information is not intended to replace advice given to you by your health care provider. Make sure you discuss any questions you have with your health care provider. Document Revised: 04/14/2021 Document Reviewed: 04/14/2021 [employer] Patient Education 2022 Built In. Follow Up Care 02/21/2023 11:11:13 With:Wojciech GUERRERO, ABIGAIL [place], URO Address: [address] [place] [phone] When: only if needed [facility] [place] 06-12-2023 Evaluation note Encounter Date Diagnosis Assessment Notes May, Wellness examination (ICD-10 - Z00.00) Healthy diet and exercise. Reviewed age-appropriate preventive testing recommended. May, Type 2 diabetes mellitus with hyperglycemia (ICD-10 - E11.65) This patient is following a comprehensive diabetic treatment plan. They are checking their feet daily for calluses and nonhealing ulcers. They are being seen for yearly dilated eye examinations. Goals: SBP less than 130, LDL less than 100, FBS less than 140, A1C less than 7%. They are checking their BS daily, will which are reviewed at the office visit. Continue regular routine monitoring of A1C,] Microalbumin, Dilated eye exam and Foot exam May, Type 2 diabetes mellitus with diabetic polyneuropathy (ICD-10 - E11.42) Inspect feet daily for cuts and calluses.Recommen d diabetic shoes and inserts to prevent callus formation.Fall precautions. May, Essential hypertension (ICD-10 - I10) This patient is instructed to consume a healthy, low-fat, low-salt diet. They are also encouraged to continue exercise to achieve/maintain a normal BMI. Patient is instructed on home BP measurements: - rest for 5 minutes w/o talking- positioned w/ feet on floor and arm supported- average best 2/3 readings w/ goal < 135/85 _update office w/ readings May, Hyperlipidemia type II (ICD-10 - E78.01) Instructed on diet and exercise with continued statin therapy.Discussed the beneficial effects of lowering cholesterol in reducing the risk for cerebrovascular and cardiovascular disease. May, Morbid exogenous obesity (ICD-10 - E66.01) This patient has been instructed on a low-fat, high-fiber diet. They are instructed to reduce calories, portion sizes and snacks. It is recommended that they exercise for 30 minutes, 3-5 times weekly. May, Chronic venous insufficiency (ICD-10 - I87.2) Avoid salt and elevate lower extremities, support stockings, inspect legs and feet daily for blisters and ulcerations. Continue pumps daily May, terminal gauger (current) use of insulin (ICD-10 - Z79.4) May, Tubulovillous adenoma of colon (ICD-10 - D12.6) Continue surveillance [facility] Other 06-28-2023 Hospital Discharge instructions Patient Education 02/21/2023 11:06:12 Hypogonadism, Male Hypogonadism, Male Male hypogonadism is a condition of having a level of testosterone that is lower than normal. Testosterone is a chemical, or hormone, that is made mainly in the testicles. In boys, testosterone is responsible for the development of male characteristics during puberty. These include: Making the penis bigger. Growing and building the muscles. Growing facial hair. Deepening the voice. In adult men, testosterone is responsible for maintaining: An interest in sex and the ability to have sex. Muscle mass. Sperm production. Red blood cell production. Bone strength. Testosterone also gives men energy and a sense of well-being. Testosterone normally decreases as men age and the testicles make less testosterone. Testosterone levels can vary from man to man. Not all men will have signs and symptoms of low testosterone. Weight, alcohol use, medicines, and certain medical conditions can affect a man's testosterone level. What are the causes? This condition is caused by: A natural decrease in testosterone that occurs as a man grows older. This is the main cause of thiscondition. Use of medicines, such as antidepressants, steroids, and opioids. Diseases and conditions that affect the testicles or the making of testosterone. These include: ?Injury or damage to the testicles from trauma, cancer, cancer treatment, or infection. ?Diabetes. ?Sleep apnea. ?Genetic conditions that men are born with. ?Disease of the pituitary gland. This gland is in the brain. It produces hormones. ?Obesity. ?Metabolic syndrome. This is a group of diseases that affect blood pressure, blood sugar, cholesterol, and belly fat. ?HIV or AIDS. ?Alcohol abuse. ?Kidney failure. ?Other long-term or chronic diseases. What are the signs or symptoms? Common symptoms of this condition include: Loss of interest in sex (low sex drive). Inability to have or maintain an erection (erectile dysfunction). Feeling tired (fatigue). Mood changes, like irritability or depression. Loss of muscle and body hair. Infertility. Large breasts. Weight gain (obesity). How is this diagnosed? Your health care provider can diagnose hypogonadism based on: Your signs and symptoms. A physical exam to check your testosterone levels. This includes blood tests. Testosterone levels can change throughout the day. Levels are highest in the morning. You may need to have repeat blood tests before getting a diagnosis of hypogonadism. Depending on your medical history and test results, your health care provider may also do other tests to find the cause of low testosterone. How is this treated? This condition is treated with testosterone replacement therapy. Testosterone can be given by: Injection or through pellets inserted under the skin. Gels or patches placed on the skin or in the mouth. Testosterone therapy is not for everyone. It has risks and side effects. Your health care provider will consider your medical history, your risk for prostate cancer, your age, and your symptoms before putting you on testosterone replacement therapy. Follow these instructions at home: Take taoa-suo-dascwyg and prescription medicines only as told by your health care provider. Eat foods that are high in fiber, such as beans, whole grains, and fresh fruits and vegetables. Limit foods that are high in fat and processed sugars, such as fried or sweet foods. If you drink alcohol: ?Limit how much you have to 0 2 drinks a day. ?Know how much alcohol is in your drink. In the [place] one drink equals one 12 oz bottle of beer (355 mL), one 5 oz glass of wine (148 mL), or one 1 oz glass of hard liquor (44 mL). Return to your normal activities as told by your health care provider. Ask your health care provider what activities are safe for you. Keep all follow-up visits. This is important. Contact a health care provider if: You have any of the signs or symptoms of low testosterone. You have any side effects from testosterone therapy. Summary Male hypogonadism is a condition of having a level of testosterone that is lower than normal. The natural drop in testosterone production that occurs with age is the most common cause of this condition. Low testosterone can also be caused by many diseases and conditions that affect the testicles and the making of testosterone. This condition is treated with testosterone replacement therapy. There are risks and side effects of testosterone therapy. Your health care provider will consider your age, medical history, symptoms, and risks for prostate cancer before putting you on testosteronetherapy. This information is not intended to replace advice given to you by your health care provider. Make sure you discuss any questions you have with your health care provider. Document Revised: 04/14/2021 Document Reviewed: 04/14/2021 [employer] Patient Education 2022 Built In. Follow Up Care 11/29/2022 08:37:40 With:Wojciech GUERRERO, ABIGAIL [place], URO Address: When:Within 6 Month(s) Comments:w/ Labs [facility] 03-24-2023 Evaluation note* Encounter Date Diagnosis Assessment Notes Treatment Notes Treatment Clinical Notes Oct, Type 2 diabetes mellitus with hyperglycemia (ICD-10 - E11.65) This patient is following a comprehensive diabetic treatment plan. They are checking their feet daily for calluses and nonhealing ulcers. They are being seen for yearly dilated eye examinations. Goals: SBP less than 130, LDL less than 100, FBS less than 140, AC and A1C less than 7%. They are checking their BS daily, will which are reviewed at the office visit. Oct, Type 2 diabetes mellitus with diabetic polyneuropathy (ICD-10 - E11.42) Inspect feet daily for cuts and calluses.Recommend diabetic shoes and inserts to prevent callus formation.Fall precautions. Oct, Essential hypertension (ICD-10 - I10) This patient is instructed to consume a healthy, low-fat, low-salt diet. They are also encouraged to continue exercise to achieve/maintain a normal BMI. Oct, Hyperlipidemia type II (ICD-10 - E78.01) Diet and exercise with continued statin therapy. Oct, Morbid exogenous obesity (ICD-10 - E66.01) This patient has been instructed on a low-fat, high-fiber diet. They are instructed to reduce calories, portion sizes and snacks. It is recommended that they exercise for 30 minutes, 3-5 times weekly. Oct, Chronic venous insufficiency (ICD-10 - I87.2) Avoid salt and elevate lower extremities, support stockings, inspect legs and feet daily for blisters and ulcerations. Oct, Low testosterone in male (ICD-10 - R79.89) f/u Urology Aware of side effects - likely contributing to increased BS PSA closely monitored Oct, terminal gauger (current) use of insulin (ICD-10 - Z79.4) [facility] Other 03-22-2023 Evaluation + Plan note Diagnostic Tests Pending * Testosterone Level Total 11/15/22 * Hematocrit 11/15/22 [facility] 03-22-2023 Hospital Discharge instructions Patient Education 11/15/2022 08:34:56 Testicular Self-Exam Testicular Self-Exam A self-examination of your testicles (testicular self-exam) involves looking at and feeling your testicles for abnormal lumps or swelling. Several things can cause swelling, lumps, or pain in your testicles. Some of these causes are: Injuries. Inflammation. Infection. Buildup of fluids around your testicle (hydrocele). Twisted testicles (testicular torsion). Testicular cancer. Why is it important to do a testicular self-exam? Self-examination of the testicles and the left and right groin areas may be recommended if you are at risk for testicular cancer. Your groin is where your lower abdomen meets your upper thighs. You may be at risk for testicular cancer if you have: An undescended testicle (cryptorchidism). A history of previous testicular cancer. A family history of testicular cancer. How to do a testicular self-exam The testicles are easiest to examine after a warm bath or shower. They are more difficult to examine when you are cold. This is because the muscles attached to the testicles retract and pull them up higher or into the abdomen. A normal testicle is egg-shaped and feels firm. It is smooth and not tender. The spermatic cord canbe felt as a firm, spaghetti-like cord at the back of your testicle. Look and feel for changes Stand and hold your penis away from your body. Look at each testicle to check for lumps or swelling. Roll each testicle between your thumb and forefinger, feeling the entire testicle. Feel for: ?Lumps. ?Swelling. ?Discomfort. Check the groin area between your abdomen and upper thighs on both sides of your body. Look and feel for any swelling or bumps that are tender. These could be enlarged lymph nodes. Contact a health care provider if: You find any bumps or lumps, such as a small, hard, pea-sized lump. You find swelling, pain, or soreness. You see or feel any other changes in your testicles. Summary A self-examination of your testicles (testicular self-exam) involves looking at and feeling your testicles for any changes. Self-examination of the testicles and the left and right groin areas may be recommended if you are at risk for testicular cancer. You should check each of your testicles for lumps, swelling, or discomfort. You should check for swelling or tender bumps in your groin area between your lower abdomen and upper thighs. This information is not intended to replace advice given to you by your health care provider. Make sure you discuss any questions you have with your health care provider. Document Released: 11/19/2001 Document Revised: 12/04/2019 Document Reviewed: 07/09/2017 [employer] Patient Education 2020 Built In. Follow Up Care 08/09/2022 14:30:27 With:Wojciech GUERRERO, ABIGAIL [place], URO Address: When: Unknown [facility] 12-14-2022 Hospital Discharge instructions Patient Education 08/09/2022 14:19:54 Erectile Dysfunction Erectile Dysfunction Erectile dysfunction (ED) is the inability to get or keep an erection in order to have sexual intercourse. Erectile dysfunction may include: Inability to get an erection. Lack of enough hardness of the erection to allow penetration. Loss of the erection before sex is finished. What are the causes? This condition may be caused by: Certain medicines, such as: ?Pain relievers. ?Antihistamines. ?Antidepressants. ?Blood pressure medicines. ?Water pills (diuretics). ?Ulcer medicines. ?Muscle relaxants. ?Drugs. Excessive drinking. Psychological causes, such as: ?Anxiety. ?Depression. ?Sadness. ?Exhaustion. ?Performance fear. ?Stress. Physical causes, such as: ?Artery problems. This may include diabetes, smoking, liver disease, or atherosclerosis. ?High blood pressure. ?Hormonal problems, such as low testosterone. ?Obesity. ?Nerve problems. This may include back or pelvic injuries, diabetes mellitus, multiple sclerosis, or Parkinson disease. What are the signs or symptoms? Symptoms of this condition include: Inability to get an erection. Lack of enough hardness of the erection to allow penetration. Loss of the erection before sex is finished. Normal erections at some times, but with frequent unsatisfactory episodes. Low sexual satisfaction in either partner due to erection problems. A curved penis occurring with erection. The curve may cause pain or the penis may be too curved to allow for intercourse. Never having nighttime erections. How is this diagnosed? This condition is often diagnosed by: Performing a physical exam to find other diseases or specific problems with the penis. Asking you detailed questions about the problem. Performing blood tests to check for diabetes mellitus or to measure hormone levels. Performing other tests to check for underlying health conditions. Performing an ultrasound exam to check for scarring. Performing a test to check blood flow to the penis. Doing a sleep study at home to measure nighttime erections. How is this treated? This condition may be treated by: Medicine taken by mouth to help you achieve an erection (oral medicine). Hormone replacement therapy to replace low testosterone levels. Medicine that is injected into the penis. Your health care provider may instruct you how to give yourself these injections at home. Vacuum pump. This is a pump with a ring on it. The pump and ring are placed on the penis and used to create pressure that helps the penis become erect. Penile implant surgery. In this procedure, you may receive: ?An inflatable implant. This consists of cylinders, a pump, and a reservoir. The cylinders can be inflated with a fluid that helps to create an erection, and they can be deflated after intercourse. ?A semi-rigid implant. This consists of two silicone rubber rods. The rods provide some rigidity. They are also flexible, so the penis can both curve downward in its normal position and become straight for sexual intercourse. Blood vessel surgery, to improve blood flow to the penis. During this procedure, a blood vessel from a different part of the body is placed into the penis to allow blood to flow around (bypass) damaged or blocked blood vessels. Lifestyle changes, such as exercising more, losing weight, and quitting smoking. Follow these instructions at home: Medicines Take qneo-vng-ltdbhic and prescription medicines only as told by your health care provider. Do not increase the dosage without first discussing it with your health care provider. If you are using self-injections, perform injections as directed by your health care provider. Makesure to avoid any veins that are on the surface of the penis. After giving an injection, apply pressure to the injection site for 5 minutes. General instructions Exercise regularly, as directed by your health care provider. Work with your health care provider to lose weight, if needed. Do not use any products that contain nicotine or tobacco, such as cigarettes and e-cigarettes. If you need help quitting, ask your health care provider. Before using a vacuum pump, read the instructions that come with the pump and discuss any questionswith your health care provider. Keep all follow-up visits as told by your health care provider. This is important. Contact a health care provider if: You feel nauseous. You vomit. Get help right away if: You are taking oral or injectable medicines and you have an erection that lasts longer than 4 hours. If your health care provider is unavailable, go to the nearest emergency room for evaluation. An erection that lasts much longer than 4 hours can result in permanent damage to your penis. You have severe pain in your groin or abdomen. You develop redness or severe swelling of your penis. You have redness spreading up into your groin or lower abdomen. You are unable to urinate. You experience chest pain or a rapid heart beat (palpitations) after taking oral medicines. Summary Erectile dysfunction (ED) is the inability to get or keep an erection during sexual intercourse. This problem can usually be treated successfully. This condition is diagnosed based on a physical exam, your symptoms, and tests to determine the cause. Treatment varies depending on the cause, and may include medicines, hormone therapy, surgery, orvacuum pump. You may need follow-up visits to make sure that you are using your medicines or devices correctly. Get help right away if you are taking or injecting medicines and you have an erection that lasts longer than 4 hours. This information is not intended to replace advice given to you by your health care provider. Make sure you discuss any questions you have with your health care provider. Document Released: 08/10/2001 Document Revised: 07/26/2018 Document Reviewed: 08/29/2017 [employer] Patient Education 2020 Built In. Follow Up Care 02/07/2022 10:37:37 With:Wojciech GUERRERO, Emerald [place], URO Address: When:3 months Comments:w/ labs [facility] 06-14-2022 Hospital Discharge instructions Patient Education 02/07/2022 10:32:30 Testicular Self-Exam, Adpl-gv-Dgcm Testicular Self-Exam A self-exam of your testicles (testicular self-exam) is looking at and feeling your testicles for unusual lumps or swelling. Swelling, lumps, or pain can be caused by: Injuries. Puffiness, redness, and soreness (inflammation). Infection. Extra fluids around your testicle (hydrocele). Twisted testicles (testicular torsion). Cancer of the testicle (testicular cancer). Why is it important to do a self-exam of testicles? You may need to do self-exams if you are at risk for cancer of the testicles. You may be at risk ifyou have: A testicle that has not descended (cryptorchidism). A history of cancer of the testicle. A family history of cancer of the testicle. How to do a self-exam of testicles It is easiest to do a self-exam after a warm bath or shower. Testicles are harder to examine when you are cold. A normal testicle is egg-shaped and feels firm. It is smooth, and it is not tender. At the back of your testicles, there is a firm cord that feels like spaghetti (spermatic cord). Look and feel for changes Stand and hold your penis away from your body. Look at each testicle to check for lumps or swelling. Roll each testicle between your thumb and finger. Feel the whole testicle. Feel for: ?Lumps. ?Swelling. ?Discomfort. Check for swelling or tender bumps in the groin area. Your groin is where your lower belly (abdomen) meets your upper thighs. Contact a health care provider if: You find a bump or lump. This may be like a small, hard bump that is the size of a pea. You find swelling. You find pain. You find soreness. You see or feel any other changes. Summary A self-exam of your testicles is looking at and feeling your testicles for lumps or swelling. You may need to do self-exams if you are at risk for cancer of the testicle. You should check each of your testicles for lumps, swelling, or discomfort. You should check for swelling or tender bumps in the groin area. Your groin is where your lower belly (abdomen) meets your upper thighs. This information is not intended to replace advice given to you by your health care provider. Make sure you discuss any questions you have with your health care provider. Document Released: 11/09/2009 Document Revised: 12/04/2019 Document Reviewed: 07/09/2017 [employer] Patient Education 2020 Built In. Follow Up Care 12/14/2021 15:56:30 With:Denzel Hernandez MD, Lea [place], URO Address: [facility] [address], [place] [address]- When:Within 6 Month(s) Comments:w/ PSA and Testosterone level [facility] evaluation + Plan note Future Appointments Appointment Date:12/14/2021 02:45:00 PM Scheduled Provider: Location:[facility] Appointment Type:URO Nurse Visit [facility] evaluation + Plan note Future Appointments Appointment Date:01/11/2022 09:15:00 AM Scheduled Provider:MONICA GRULLON PA-C Location:[facility] Appointment Type:URO Office Visit Diagnostic Tests Pending * Testosterone Level Total 12/14/21 [facility] evaluation + Plan note Future Appointments Appointment Date:03/07/2022 09:30:00 AM Scheduled Provider: Location:[facility] Appointment Type:URO Nurse Visit Appointment Date:08/08/2022 10:15:00 AM Scheduled Provider:Lea Mahoney Jr., MD Location:[facility] Appointment Type:URO Office Visit Diagnostic Tests Pending * PSA Total 02/07/22 * Testosterone Level Total 02/07/22 [facility] evaluation + Plan note Future Appointments Appointment Date:04/05/2022 03:30:00 PM Scheduled Provider: Location:[facility] Appointment Type:URO Nurse Visit Appointment Date:08/08/2022 10:15:00 AM Scheduled Provider:Lea Mahoney Jr., MD Location:[facility] Appointment Type:URO Office Visit [facility] evaluation + Plan note Future Appointments Appointment Date:05/03/2022 03:30:00 PM Scheduled Provider: Location:[facility] Appointment Type:URO Nurse Visit Appointment Date:08/08/2022 10:15:00 AM Scheduled Provider:Lea Mahoney Jr., MD Location:[facility] Appointment Type:URO Office Visit [facility] evaluation + Plan note Future Appointments Appointment Date:08/08/2022 10:15:00 AM Scheduled Provider:Lea Mahoney Jr., MD Location:[facility] Appointment Type:URO Office Visit [facility] evaluation + Plan note Future Appointments Appointment Date:07/05/2022 09:00:00 AM Scheduled Provider: Location:[facility] Appointment Type:URO Nurse Visit Appointment Date:08/15/2022 11:30:00 AM Scheduled Provider:Lea Mahoney Jr., MD Location:[facility] Appointment Type:URO Office Visit [facility] evaluation + Plan note Future Appointments Appointment Date:08/09/2022 11:15:00 AM Scheduled Provider:Emerald Jeffrey MD Location:[facility] Appointment Type:URO Office Visit Diagnostic Tests Pending * PSA Total 07/07/22 * Testosterone Level Total 07/07/22 [facility] evaluation + Plan note Future Appointments Appointment Date:08/23/2022 03:30:00 PM Scheduled Provider: Location:[facility] Appointment Type:URO Nurse Visit Appointment Date:09/05/2022 03:30:00 PM Scheduled Provider: Location:[facility] Appointment Type:URO Nurse Visit Appointment Date:11/08/2022 08:30:00 AM Scheduled Provider:Emerald Jeffrey MD Location:[facility] Appointment Type:URO Office Visit Diagnostic Tests Pending * Testosterone Level Total 08/09/22 * Hemoglobin and Hematocrit 08/09/22 [facility] eEnlighteduation + Plan note Future Appointments Appointment Date:09/05/2022 03:30:00 PM Scheduled Provider: Location:[facility] Appointment Type:URO Nurse Visit Appointment Date:11/08/2022 08:30:00 AM Scheduled Provider:Emerald Jeffrey MD Location:[facility] Appointment Type:URO Office Visit [facility] evaluation + Plan note Future Appointments Appointment Date:10/03/2022 03:30:00 PM Scheduled Provider: [facility] Appointment Type:URO Nurse Visit Appointment Date:10/17/2022 03:30:00 PM Scheduled Provider: Location:[facility] Appointment Type:URO Nurse Visit Appointment Date:11/08/2022 08:30:00 AM Scheduled Provider:Emerald Jeffrey MD [facility] Appointment Type:URO Office Visit [facility] evaluation + Plan note Future Appointments Appointment Date:10/17/2022 03:30:00 PM Scheduled Provider: [facility] Appointment Type:URO Nurse Visit Appointment Date:11/08/2022 08:30:00 AM Scheduled Provider:Emerald Jeffrey MD Location:[facility] Appointment Type:URO Office Visit [facility] evaluation + Plan note Future Appointments Appointment Date:10/31/2022 03:30:00 PM Scheduled Provider: Location:[facility] Appointment Type:URO Nurse Visit Appointment Date:11/15/2022 08:00:00 AM Scheduled Provider:Emerald Jeffrey MD Location:[facility] Appointment Type:URO Office Visit Diagnostic Tests Pending * Testosterone Level Total 10/17/22 * CBC w/ Auto Diff 10/17/22 [facility] evaluation + Plan note Future Appointments Appointment Date:11/15/2022 08:00:00 AM Scheduled Provider:Emerald Jeffrey MD Location:[facility] Appointment Type:URO Office Visit [facility] evaluation + Plan note Future Appointments Appointment Date:12/13/2022 03:15:00 PM Scheduled Provider: Location:[facility] Appointment Type:URO Nurse Visit Appointment Date:12/27/2022 03:15:00 PM Scheduled Provider: [facility] Appointment Type:URO Nurse Visit Appointment Date:01/10/2023 03:15:00 PM Scheduled Provider: Location:[facility] Appointment Type:URO Nurse Visit Appointment Date:02/14/2023 08:45:00 AM Scheduled Provider:Emerald Jeffrey MD Location:[facility] Appointment Type:URO Office Visit [facility] evaluation + Plan note Future Appointments Appointment Date:12/27/2022 03:15:00 PM Scheduled Provider: [facility] Appointment Type:URO Nurse Visit Appointment Date:01/09/2023 03:15:00 PM Scheduled Provider: Location:[facility] Appointment Type:URO Nurse Visit Appointment Date:02/14/2023 08:45:00 AM Scheduled Provider:Emerald Jeffrey MD Location:[facility] Appointment Type:URO Office Visit [facility] evaluation + Plan note Future Appointments Appointment Date:01/09/2023 03:15:00 PM Scheduled Provider: Location:[facility] Appointment Type:URO Nurse Visit Appointment Date:02/14/2023 08:45:00 AM Scheduled Provider:Emerald Jeffrey MD Location:[facility] Appointment Type:URO Office Visit [facility] evaluation + Plan note Future Appointments Appointment Date:02/06/2023 09:30:00 AM Scheduled Provider: Location:[facility] Appointment Type:URO Nurse Visit Appointment Date:02/21/2023 09:45:00 AM Scheduled Provider:Emerald Jeffrey MD Location:[facility] Appointment Type:URO Office Visit [facility] evaluation + Plan note Future Appointments Appointment Date:02/21/2023 09:45:00 AM Scheduled Provider:Emerald Jeffrey MD Location:[facility] Appointment Type:URO Office Visit [facility] evaluation + Plan note Future Appointments Appointment Date:03/06/2023 03:45:00 PM Scheduled Provider: Location:[facility] Appointment Type:URO Nurse Visit Appointment Date:03/20/2023 03:45:00 PM Scheduled Provider: Location:[facility] Appointment Type:URO Nurse Visit Appointment Date:08/29/2023 08:00:00 AM Scheduled Provider:Emerald Jeffrey MD Location:[facility] Appointment Type:URO Office Visit Diagnostic Tests Pending * Testosterone Level Total 02/21/23 * Hemoglobin and Hematocrit 02/21/23 * PSA Total 02/21/23 [facility] evaluation + Plan note Future Appointments Appointment Date:03/19/2023 03:45:00 PM Scheduled Provider: [facility] Appointment Type:URO Nurse Visit Appointment Date:08/29/2023 08:00:00 AM Scheduled Provider:Emerald Jeffrey MD Location:[facility] Appointment Type:URO Office Visit [facility] evaluation + Plan note Future Appointments Appointment Date:04/04/2023 03:45:00 PM Scheduled Provider: [facility] Appointment Type:URO Nurse Visit Appointment Date:04/18/2023 03:45:00 PM Scheduled Provider: [facility] Appointment Type:URO Nurse Visit Appointment Date:05/02/2023 03:45:00 PM Scheduled Provider: Location:[facility]y Appointment Type:URO Nurse Visit Appointment Date:05/16/2023 03:45:00 PM Scheduled Provider: [facility] Appointment Type:URO Nurse Visit Appointment Date:08/29/2023 08:00:00 AM Scheduled Provider:Emerald Jeffrey MD Location:[facility] Appointment Type:URO Office Visit [facility] evaluation + Plan note Future Appointments Appointment Date:04/18/2023 03:45:00 PM Scheduled Provider: [facility] Appointment Type:URO Nurse Visit Appointment Date:05/02/2023 03:45:00 PM Scheduled Provider: [facility] Appointment Type:URO Nurse Visit Appointment Date:05/16/2023 03:45:00 PM Scheduled Provider: [facility] Appointment Type:URO Nurse Visit Appointment Date:08/29/2023 08:00:00 AM Scheduled Provider:Emerald Jeffrey MD [facility] Appointment Type:URO Office Visit [facility] evaluation + Plan note Future Appointments Appointment Date:05/02/2023 03:45:00 PM Scheduled Provider: Location:[facility] Wagner Appointment Type:URO Nurse Visit Appointment Date:05/16/2023 03:45:00 PM Scheduled Provider: Location:[facility] Appointment Type:URO Nurse Visit Appointment Date:05/29/2023 03:45:00 PM Scheduled Provider: Location:[facility] Appointment Type:URO Nurse Visit Appointment Date:08/29/2023 08:00:00 AM Scheduled Provider:Emerald Jeffrey MD Location:[facility] Appointment Type[facility] Plan note Future Appointments Appointment Date:05/16/2023 03:45:00 PM Scheduled Provider: Location:[facility] Wagner Appointment Type:URO Nurse Visit Appointment Date:05/29/2023 09:00:00 AM Scheduled Provider: Location:[facility] Appointment Type:URO Nurse Visit Appointment Date:06/12/2023 09:00:00 AM Scheduled Provider: Location:[facility] Wagner Appointment Type:URO Nurse Visit Appointment Date:06/26/2023 09:00:00 AM Scheduled Provider: Location:[facility] Appointment Type:URO Nurse Visit Appointment Date:07/10/2023 09:00:00 AM Scheduled Provider: Location:[facility] Wagner Appointment Type:URO Nurse Visit Appointment Date:07/24/2023 09:00:00 AM Scheduled Provider: Location:[facility] Appointment Type:URO Nurse Visit Appointment Date:08/07/2023 09:00:00 AM Scheduled Provider: Location:[facility] Wagner Appointment Type:URO Nurse Visit Appointment Date:08/21/2023 09:30:00 AM Scheduled Provider: Location:[facility] Wagner Appointment Type:URO Nurse Visit Appointment Date:09/05/2023 09:45:00 AM Scheduled Provider:Emerald Jeffrey MD Location:[facility] Appointment Type:URO Office [facility] + Plan note Future Appointments Appointment Date:06/12/2023 03:45:00 PM Scheduled Provider: Location:[facility] Wagner Appointment Type:URO Nurse Visit Appointment Date:06/26/2023 03:45:00 PM Scheduled Provider: Location:[facility] Kristy Appointment Type:URO Nurse Visit Appointment Date:07/10/2023 03:45:00 PM Scheduled Provider: Location:[facility]y Appointment Type:URO Nurse Visit Appointment Date:07/24/2023 03:45:00 PM Scheduled Provider: Location:[facility] Appointment Type:URO Nurse Visit Appointment Date:08/07/2023 03:45:00 PM Scheduled Provider: Location:[facility] Appointment Type:URO Nurse Visit Appointment Date:08/21/2023 03:45:00 PM Scheduled Provider: Location:[facility] Appointment Type:URO Nurse Visit Appointment Date:09/05/2023 09:45:00 AM Scheduled Provider:Emerald Jeffrey MD Location:[facility] Appointment Type:URO Office Visit [facility] evaluation + Plan note Future Appointments Appointment Date:07/10/2023 09:30:00 AM Scheduled Provider: Location:[facility]y Appointment Type:URO Nurse Visit Appointment Date:07/24/2023 03:45:00 PM Scheduled Provider: Location:[facility]y Appointment Type:URO Nurse Visit Appointment Date:08/07/2023 03:45:00 PM Scheduled Provider: Location:[facility]y Appointment Type:URO Nurse Visit Appointment Date:08/21/2023 03:45:00 PM Scheduled Provider: Location:[facility] Appointment Type:URO Nurse Visit Appointment Date:09/05/2023 09:45:00 AM Scheduled Provider:Emerald Jeffrey MD Location:[facility] Appointment Type:URO Office Visit [facility] evaluation + Plan note Future Appointments Appointment Date:07/24/2023 09:30:00 AM Scheduled Provider: Location:[facility]y Appointment Type:URO Nurse Visit Appointment Date:08/07/2023 09:30:00 AM Scheduled Provider: Location:[facility] Appointment Type:URO Nurse Visit Appointment Date:08/21/2023 09:30:00 AM Scheduled Provider: Location:[facility] Appointment Type:URO Nurse Visit Appointment Date:09/05/2023 09:45:00 AM Scheduled Provider:Emerald Jeffrey MD Location:[facility] Appointment Type:URO Office Visit [facility] evaluation + Plan note Future Appointments Appointment Date:08/07/2023 09:30:00 AM Scheduled Provider: Location:[facility] Appointment Type:URO Nurse Visit Appointment Date:08/22/2023 09:30:00 AM Scheduled Provider: Location:[facility] Appointment Type:URO Nurse Visit Appointment Date:09/05/2023 09:45:00 AM Scheduled Provider:Emerald Jeffrey MD Location:[facility] Appointment Type:URO Office Visit [facility] evaluation + Plan note Future Appointments Appointment Date:08/22/2023 09:30:00 AM Scheduled Provider: Location:[facility] Appointment Type:URO Nurse Visit Appointment Date:09/05/2023 09:45:00 AM Scheduled Provider:Emerald Jeffrey MD Location:[facility] Appointment Type:URO Office Visit [facility] evaluation + Plan note Future Appointments Appointment Date:09/05/2023 09:45:00 AM Scheduled Provider:Emerald Jeffrey MD Location:[facility] Appointment Type:URO Office Visit [facility] evaluation noteNo assessment information available [facility] Work Phone: Evaluation noteNo InformationNort ProPlan Other History general Narrative - Reported* Type Description Date Medical History Allergic contact jonathan matitis due to other chemical products Medical History Essential hypertension Medical History Controlled type 2 di abetes mellitus with hyperglycemia, without long-term current use of insulin Medical History Edema of both lower extremities Medical History Low testosterone Medical History Hyperlipidemia type II Medical History Chronic venous insufficiency Medical History Type 2 diabetes miranda itus with diabetic polyneuropathy, without long-term current use of insulin Surgical History REMOVAL OF GALLBLADDER 2013 Surgical History COLONOSCOPY 2014 Hospitalization History SEE SURGICAL HX [facility] [employer] Other Hospital course Narrative No data available for this section [facility] Hospital Discharge instructions No data available for this section [facility] progress note No data available for this section [facility] [employer]. Chief Complaint and Reason for Visit Chief Complaint Rt. Leg lymphedema Advance Directives No Advanced Directives Records Found Advance Directive Response Recorded Date/ Time Advance Directives No January 28 2 10:44am Summary Purpose Family History No Family History Records FoundNo Family History Records Found No data available for this section No data available for this section No data available for this section No data available for this section No data available for this section No data available for this section No Family History Records Found No data available for this section No Family History Records Found Additional Source Comments Care Team (unrecognized sect ion and content) Team Status: Inactive Member Role Status Dates Mart Jiang DO Primary Care Provider, Attending Ildefonso villalta Active Team Status: Active Member Role Status Dates Mart Jiang DO Primary Care Provider Active Goals (unrecognized section and content) Goals may be documented in a n alternate section (unrecognized sect ion and content) No Status Records FoundNo Status Records FoundNo Status Records FoundNo Status Records Found INFORMATION SOURCE (unrecogn ized section and content) DATE CREATED AUTHOR 05/30/2022 [facility] DATE CREATED AUTHOR AUTHOR'S ORGANIZ ATION 11/14/2022 [facility] DATE CREATED AUTHOR AUTHOR'S ORGANIZ ATION 09/04/2023 [facility] DATE CREATED AUTHOR AUTHOR'S ORGANIZ ATION 04/09/2024 [facility] EPIC REASON FOR VISIT (unrecogniz ed section and content) 6 monthMedication QuestionWe llnessLab results FOR RECORDS PERTAINING TO PATIENTS WHO ARE OR HAVE BEEN ENROLLED IN A CHEMICAL DEPENDENCY/SUBSTANCEABUSE PROGRAM, SOME INFORMATION MAY BE OMITTED. This clinical summary was aggregated from multiple sources. Caution should be exercised in using it in the provision of clinical care. This summary normalizes information from multiple sources, and as a consequence, information in this document may materially change the coding, format and clinical context of patient data. In addition, data may be omitted in some cases. CLINICAL DECISIONS SHOULD BE BASED ON THE PRIMARY CLINICAL RECORDS. [facility] [employer]. provides no warranty or guarantee of the accuracy or completeness of information in this document.
[2024-06-13 13:03] LABS: Hematocrit 43.8 % (42.0-54.0); Hemoglobin 14.9 g/dL (14.0-18.0); Mean Corpuscular Hemoglobin 31.3 pg (25.9-34.0); Mean Platelet Volume 9.3 fL (9.5-13.5); Platelet Count 358 10^3/uL (150-450); Red Blood Count 4.76 10^6/uL (4.70-6.10); Red Cell Distribution Width 11.7 % (11.0-15.0); White Blood Count 12.8 10^3/uL (4.0-11.0)
[2024-06-13 13:33] LABS: Estimated Average Glucose 128 mg/dL; Glycohemoglobin A1C 6.1 % (4.5-6.2)
[2024-06-13 13:48] LABS: Eosinophils Absolute Manual 0.12 10^3/uL (0.00-0.70); Monocytes Absolute Manual 0.76 10^3/uL (0.30-0.80)
[2024-06-13 14:00] LABS: Microalbumin Urine Random <1.3 mg/dL (<=30.0)
[2024-06-13 14:24] LABS: Alanine Aminotransferase 12 U/L (16-63); Albumin Globulin Ratio 0.9; Albumin Level 3.5 g/dL (3.4-5.0); Alkaline Phosphatase 77 U/L (46-116); Anion Gap 12.9; Aspartate Amino Transferase 12 U/L (15-37); BUN Creatinine Ratio 15.7; Bilirubin Total 1.6 mg/dL (0.2-1.0); Calcium 9.4 mg/dL (8.5-10.1); Carbon Dioxide 27.6 mmol/L (21.0-32.0); Chloride 102 mmol/L (98-107); Cholesterol 139 mg/dL (<=200); Estimated GFR (African America >60 (>=60 mL/min/1.73m^2); Estimated GFR (Non-African Ame >60 (>=60 mL/min/1.73m^2); Glucose 94 mg/dL (74-106); HDL Cholesterol 47 mg/dL (40-60); Potassium 4.5 mmol/L (3.5-5.1); Sodium 138 mmol/L (136-145); Total Protein 7.5 g/dL (6.4-8.2); Triglycerides 135 mg/dL (<=150)
[2024-06-13 15:08] LABS: Prostate Specific Antigen Scrn 0.45 ng/mL (<=4.00)
== END 2024-06-13 12:40 | disposition home or self-care (01) ==
PROVIDERS: Visit Provider Internal Medicine
DX: E78.00 Pure hypercholesterolemia, unspecified (principal); E11.65 Type 2 diabetes mellitus with hyperglycemia; I10 Essential (primary) hypertension; Z12.5 Encounter for screening for malignant neoplasm of prostate
CPT/HCPCS: 36415; 80053; 80061; 82043; 83036; 85007; 85027; G0103

== ENCOUNTER 2024-10-20 11:37 | Outpatient (OUT) | payer MEDICARE, OTHER, SELFPAY ==
[2024-10-20 12:13] LABS: Estimated Average Glucose 131 mg/dL; Glycohemoglobin A1C 6.2 % (4.5-6.2)
== END 2024-10-20 11:38 | disposition home or self-care (01) ==
LOC: LAB 11:37
PROVIDERS: PCP Internal Medicine; Visit Provider Internal Medicine
DX: E11.65 Type 2 diabetes mellitus with hyperglycemia (principal); Z79.4 Long term (current) use of insulin
CPT/HCPCS: 36415; 83036

== ENCOUNTER 2025-06-11 09:16 | Outpatient (OUT) | payer MEDICARE, OTHER, SELFPAY ==
--- OUTSIDE RECORDS SUMMARY | 2025-06-11 05:08 | XMS_ITS | Continuity of Care Document ---
Author Organization [facility] Address [address] [place] [address] Phone Care Team Providers Care Representative Name Role Phone Apolinar Mart ROBERTS Primary Care Provider Mart Jiang DO Attending Provider Care Teams Patient Care Team Team Status: Active Member Role Status Dates Mrat Jiang DO Primary Care Provider Active Patient Care Team Team Status: Inactive Member Role Status Dates Mart Jiang DO Primary Care Provider Active Start: June 11, 2025 End: June 11, 2025 Mart Jiang DO Attending Provider Active Sta rt: June 11, 2025 End: June 11, 2025 Chief Complaint and Reason for Visit Chief Complaint Admit Date 4 mo f/u June 11, 2025 8 :26am Reason for Visit Admit Date Chronic venous insufficiency May 8:26am Elevated cholesterol June 11, 2025 8:26am Essential hypertension June 11 8:26am Obesity June 11, 2025 8 :26am Screening PSA (prostate specific antigen ) June 11, 2025 8:26am Type 2 diabetes mellitus with diabetic p olyneuropathy June 11, 2025 8:26am Type 2 diabetes mellitus with hyperglyce yo June 11, 2025 8:26am Medicare annual wellness visit, initial June 11, 2025 8:26am Allergies, Adverse Reactions, Alerts Allergen Type Severity Reaction Last Updated Verified Status No Known Allergies Allergy Unknown Octobe r 2024 8:01am Yes Active Social History Smoking Status Status Start Date End Date Date of Observa tion Never smoked tobacco (finding) October 13, 2023 11:05am Observation Status Observation Response Date of Response Legal Sex Male (finding) Sex Assigned At Male 1960 Family History Relationship Condition Age at Onset Recorded Date/T jose father Diabetes mellitus Unknown mother Diabetes mellitus Unknown Problems Active Problems Medical Problem Onset Date Status Comments Screening PSA (prostate specific antigen) Unknown Active PSA: 0.45 - 05/2024 senior care (current) use of insulin Unknown Active Morbid (severe) obesity due to excess calories Unknown Active Type 2 diabetes mellitus with hyperglycemia Unknown Active Type 2 diabetes mellitus wit h diabetic polyneuropathy Unknown Active Elevated cholesterol Unknown Active Essential hypertension Unknown Active Adenoma of colon Unknown Active Chronic venous insufficiency Unknown Active Obesity Unknown Active Medications Medication Status Dose Units Route Directions Qty Days St art Date Stop Date End Date Instructions Adherence Semaglutide (Ozempic) 0.25 mg or 0.5 mg (2 mg/3 mL) pen injector Discont inued 0.25 MG SUBCUT every week November 01, 2023 2:17pm November 05, 2023 6:05p m for 4 weeks Semaglutide (Ozempic) 0.25 mg or 0.5 mg (2 mg/3 mL) pen injector Discont inued 0.25 MG SUBCUT every week 11 21November 05, 2023 6:02pm March 04, 2024 12:21 pm for 4 weeks Insulin Glargine (Lantus Solostar U-100 Insulin) 100 unit/mL (3 mL) insulin pen Discont inued 10 UNIT SUBCUT Every evening 11 23November 12, 2023 12:00a m November 12, 2023 3:51p m Insulin Lispro (Humalog Kwikpen Insulin) 100 unit/mL insulin pen Discont inued 10 UNIT SUBCUT Three times daily 05 26November 12, 2023 12:00a m Octob 2023 10:50 am Insulin Nph And Regular Human (Novolin 70/30 U-100 Insulin) 100 unit/mL (70-30) suspension Discont inued SUBCUT As Directed November 22, 2023 8:48am February 11, 2024 1:09p m 60 units in am 40 units in pm Lisinopril 20 mg tablet Discont inued 20 MG PO Daily February 08, 2024 12:56p m February 27, 2024 8:44a m Insulin Nph And Regular Human (Novolin 70/30 U-100 Insulin) 100 unit/mL (70-30) suspension Active SUBCUT As Directed February 11, 2024 1:09pm 35 units in am 15 units in pm Complies with drug therapy Atenolol 100 mg tablet Discont inued 0 .ROUTE .COMPLEX 45 February 27, 2024 7:06am February 09, 2025 10:03 am TAKE 1/2 TABLET BY MOUTH EVERY DAY Pravastatin 40 mg tablet Discont inued 0 .ROUTE .COMPLEX February 27, 2024 7:06am February 09, 2025 10:03 am TAKE 1 TABLET BY MOUTH ONCE EVERY EVENING Metformin 1,000 mg tablet Discont inued 0 .ROUTE .COMPLEX 180 February 27, 2024 7:07am February 09, 2025 10:03 am TAKE 1 TABLET BY MOUTH TWICE DAILY WITH FOOD Lisinopril 30 mg tablet Discont inued 0 .ROUTE .COMPLEX February 27, 2024 8:44am February 09, 2025 10:03 am TAKE 1 TABLET BY MOUTH EVERY DAY Semaglutide (Ozempic) 2 mg/dose (8 mg/3 mL) pen injector Discont inued 2 MG SUBCUT every week March 04, 2024 12:00a m March 04, 2024 12:23 pm Semaglutide (Ozempic) 2 mg/dose (8 mg/3 mL) pen injector Discont inued 2 MG SUBCUT every week March 04, 2024 12:22p m Decem lucia 2023 11:12 am Blood-Gluco se,Nitric Acid Plant Operator ,Cont (Freestyle Luciano 3 [place]) misc Discont inued 0 .ROUTE .MEDSUPPLY 1 Octobe r 2023 12:00a m Febru verna 2024 10:33 am As directed Blood-Gluco se Sensor (Freestyle Luciano 3 Sensor) device Discont inued 0 .ROUTE .MEDSUPPLY 1 Octobe r 2023 12:00a m Febru verna2024 10:33 am As directed Semaglutide (Ozempic) 2 mg/dose (8 mg/3 mL) pen injector Discont inued 2 MG SUBCUT every week 11 21 Decemb er 2023 11:12a m 2024 6:36p m Semaglutide (Ozempic) 2 mg/dose (8 mg/3 mL) pen injector Discont inued 2 MG SUBCUT every week 2024 6:36pm February 09, 2025 10:04 am Blood-Gluco se,Nitric Acid Plant Operator ,Cont (Dexcom G7 Nitric Acid Plant Operator) misc Active 0 .Route 1 2024 1:00am to test blood sugar 4 times daily Blood-Gluco se Sensor (Dexcom G7 Sensor) device Active 0 .Route 3 2024 1:00am to test blood sugar 4 times daily Atenolol 100 mg tablet Discont inued 100 MG PO Daily 2023 1:00am February 27, 2024 7:07a m TAKE 1/2 TABLET Lisinopril 30 mg tablet Discont inued 30 MG PO Daily 2023 1:00am February 08, 2024 12:56 pm Metformin 1,000 mg tablet Discont inued 1000 MG PO Twice daily with meals 2023 1:00am February 27, 2024 7:07a m Insulin Nph And Regular Human (Novolin 70/30 U-100 Insulin) 100 unit/mL (70-30) suspension Discont inued SUBCUT As Directed 2023 1:00am November 22, 2023 8:49a m Pravastatin 40 mg tablet Discont inued 40 MG PO Daily 2023 1:00am February 27, 2024 7:07a m Testosteron e Cypionate 200 mg/mL oil Discont inued 200 MG IM 2023 1:00am Octob er 2023 10:12 am Aspirin 81 mg tablet,olga yed release (DR/EC) Active 81 MG PO Daily 2024 1:00am Complies with drug therapy Atenolol 50 mg tablet Active 50 MG PO Daily 90 90 February 09, 2025 10:01a m Complies with drug therapy Lisinopril 30 mg tablet Active 30 MG PO Daily 90 90 February 09, 2025 10:01a m Complies with drug therapy Metformin 1,000 mg tablet Active 1000 MG PO Twice daily with meals 180 90 February 09, 2025 10:02a m Complies with drug therapy Pravastatin 40 mg tablet Active 40 MG PO Daily at bedtime 90 90 February 09, 2025 10:03a m Complies with drug therapy Semaglutide (Ozempic) 2 mg/dose (8 mg/3 mL) pen injector Discont inued 2 MG SUBCUT every week 3 February 09, 2025 10:04a m Octob er 2024 8:30a m Semaglutide (Ozempic) 2 mg/dose (8 mg/3 mL) pen injector Active 2 MG SUBCUT every week Octobe r 2024 12:00a m Complies with drug therapy Semaglutide (Ozempic) 0.25 mg or 0.5 mg (2 mg/3 mL) pen injector Discont inued 0.25 MG SUBCUT every week 4.78 4 90 October 30, 2023 1:00am November 01, 2023 2:18p m for 4 weeks Blood-Gluco se,Nitric Acid Plant Operator ,Cont (Dexcom G7 Nitric Acid Plant Operator) misc Discont inued 0 .ROUTE .MEDSUPPLY 1 Octobe r 2023 12:00a m Octob er 2023 12:38 pm Use to test home BS 4x daily Blood-Gluco se Sensor (Dexcom G7 Sensor) device Discont inued 0 .ROUTE .MEDSUPPLY 1 Octobe r 2023 12:00a m Octob er 2023 12:38 pm Use to test home BS 4x daily Immunizations Immunization Event Date Not Given Reason Dose Number Property Master Lot Number Vaccine Information Statement (VIS) Detail Administration Location Fluzone TIV High-Dose 65YR+ June 13, 2024 [id number] [facility] Fluzone TIV High-Dose 65YR+ June 11, 2025 [id number] [facility] Pneumococcal Conjugate Vaccine, 20 valent August 06, 2024 [id number] [facility] Vital Signs Vital Reading Result Reference Range Collection Date/Time Height 72 [in_i] June 11, 8:01am Weight 145.60 kg June 11 8:01am Heart Rate 78 /min 60-100 October 16th, 2 025 8:01am Respiratory rate 14 /min 12-24 May 8:01am Oxygen saturation by Pulse oximetry 98 % 95-100 June 11, 2025 8 :01am BP Systolic 117 mm[Hg] 100-140 June 11 025 8:01am BP Diastolic 70 mm[Hg] 60-100 June 11 8:01am BMI (Body Mass Index) 43.5 kg/m2 Octobe r 2024 8:01am Advance Directives Advance Directive Response Recorded Date/ Time Advance Directives No January 28 10:44am Insurance Providers Guarantor Boo Chappell Address [address] [address] Contact Info. Home Phone: Payer Policy Id Subscriber's Name Subscriber Id Effectiv e Date Expiration Date Ramiro WILL/TROY [id number] Boo Chappell [id number] Medicare [id number] Boo Chappell [id number] Regular Insurance [id number] Boo Chappell [id number] [facility] [id number] Boo Chappell [id number] Encounters Encounter Location(s) Arrival/Admit Date Discharge/Depart Date Provider(s) Departed Physician/Prov ider Office Visit -[facility] June 11, 2025 8:26am June 11, 2025 9:07am Mart Jiang , DO Recent Diagnosis Onset Date Admit Date Chronic venous insufficiency Unknown Oct sg 2024 8:26am Elevated cholesterol Unknown May 8:26am Essential hypertension Unknown May 272024 8:26am Obesity Unknown June 11 8:26am Screening PSA (prostate specific antigen) Unknow n June 11, 2025 8:26am Type 2 diabetes mellitus wit h diabetic polyneuropathy Unknown June 11, 2025 8:26am Type 2 diabetes mellitus with hyperglycemia Unkn own June 11, 2025 8:26am Medicare annual wellness visit, initial Unknown June 11, 2025 8:26am Assessments Diagnosis Onset Date Resolution Status Admit Date Chronic venous insufficiency acute June 11, 2025 8:26am Elevated cholesterol acute Octo lucia 2024 8:26am Essential hypertension acute Oc tober 2024 8:26am Obesity acute June 11, 2025 8:26am Screening PSA (prostate specific antigen) acute June 11, 2025 8:26am Type 2 diabetes mellitus wit h diabetic polyneuropathy acute June 11, 2025 8:26am Type 2 diabetes mellitus wit h hyperglycemia acute June 11 8:26am Medicare annual wellness visit, initial noneactive June 11 8:26am Plan of Treatment Author Mart Jiang [facility] Authored June 08, 2025 7 :08am I have instructed this patie nt to follow a comprehensive diabetic treatment plan. I have also instructed them to check their feet daily for calluses and nonhealing ulcers. I have instructed them to have a yearly dilated eye examination. I have reviewed their treatment goals: SBP less than 130, LDL less than 100, FBS less than 140, A1C less than 7%. I have instructed them to maintain a home BS log and bring the results to each of their office visits for review. I have explained the importance of routine monitoring of their A1C, Microalbumin and Lipids. I have explained the benefits of well controlled diabetes in preventing micro and macrovascular complications. Initiate GLP-1i - benefits of improved BS control and weight loss Continue Ozempic, Metformin, Humulin 70/30 without interruption POC A1C 6.3% I have instructed the patient to inspect their feet daily for cuts and calluses. I have recommended shoes and inserts to prevent callus formation. I have reviewed fall precautions. I have instructed this patient to consume a healthy, low-fat, low-salt diet. I have also encouraged them to continue exercise with weight loss to achieve/maintain a BMI < 30. I have instructed this patient on the correct procedure for obtaining home BP measurements: - rest for 5 minutes w/o talking. - positioned w/ feet on floor and arms supported. - average best 2/3 readings w/ goal < 135/85. - update office w/ home readings in 2 weeks. Continue Lisinopril and Atenolol without interruption I have instructed this patient to avoid salt and elevate their lower extremities. I have also recommended use of support stockings. I instructed them to inspect their legs and feet daily for blisters and ulcerations. Continue w/ pumps bid to prevent blisters and ulcerations I have instructed this patient on a low fat, high fiber diet and exercise. I have discussed the primary and secondary prevention benefits attributed to lowering LDL cholesterol. I have also discussed the medical treatment of elevated cholesterol, which is based on the 10 year ASCVD risk. Continue Pravastatin without interruption I have instructed this patient on a low-fat, high-fiber diet. I have also instructed them to reduce calories, portions sizes, sweet drinks and snacks. I have also recommended they exercise for 30 minutes, 3-5 times weekly. They are aware of the comorbid conditions associated with excessive weight: Diabetes, HTN, Hyperlipidemia, CAD and arthritis. I have instructed this patient on the recommended lifestyle changes, which includes a low fat, high fiber diet along with a regular exercise routine. I have also reviewed the recommended age-appropriate preventive testing for this patient. I have also reviewed the recommended vaccines for their age and risk factors. Future Tests Future scheduled test information is unavailable Pending Tests Test Name Ordered Date Scheduled Date Comprehensive Metabolic Panel June 11, 2025 9:00am Future Visits Future appointment information is unavailable Referrals to Other Providers Referral information is unavailable Future Procedures Procedure Name Ordered Date Scheduled Date A1C with Estimated Average Glu June 11 9:00am Complete Blood Count Auto Diff June 11 9:00am Lipid Panel June 11, 2025 9:00am MicroAlb Creat Ratio,U June 11, 2025 9:00am PSA Screen (Yearly Only) June 11, 2025 9:00 am Future Medications Future medication information is unavailable Patient Instructions Patient instructions are unavailable
--- OUTSIDE RECORDS SUMMARY | 2025-06-11 09:20 | XMS_ITS | Clinical Summary ---
Author Organization [facility] Address [address] [place] [address] Care Team Providers Care Manager Library Name Role Phone Mart Jiang DO Primary Care Provider [phone] Allergies No known active allergies Medications No known medications Active Problems Problem Noted Date Diagnosed Date Lymphedema 04/08/2024 Encounters Date Type Department Care Team Description 03/12/2025 9:50 AM EDT Office Visit [facility] [address] [place] [id number] Frank De Souza DPM Exostosis of right foot (Primary Dx); Diabetes 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, unspecified whether shelter insulin use (HCC); Pain due to onychomycosis of toenails of both feet 03/12/2025 Bamboo flowsheet [facility] [address] [place] [id number] Frank De Souza DPM 03/12/2025 Travel from Last 3 Months Family History Medical History Relation Name Comments Arthritis Father Diabetes Father Hypertension Father Cancer Mother Diabetes Mother Hypertension Mother Relation Name Status Comments Father Alive Mother Alive Social History Tobacco Use Types Packs/Day Years Used Date Smoking Tobacco: Unknown Tobacco Cessation:Counseling Given: Yes Alcohol Use Standard Drinks/Week Comments Defer 0 (1 standard drink = 0.6 oz pur e alcohol) Sex and Gender Information Value Date Recorded Sex Assigned at Not on file Legal Sex Male 3:14 PM EDT Gender Identity Not on file Sexual Orientation Not on file Last Filed Vital Signs Vital Sign Reading Time Taken Comments Blood Pressure 122/81 04/08/2024 8:49 AM EDT Pulse 74 04/08/2024 8:49 AM EDT Temperature - - Respiratory Rate 18 03/12/2025 9:14 AM EDT Oxygen Saturation - - Inhaled Oxygen Concentration - - Weight 150 kg (330 lb) 03/12/2025 9:14 AM EDT Height 175.3 cm (5' 9 ) 03/12/2025 9:14 AM EDT Body Mass Index 48.73 03/12/2025 9:14 AM EDT Plan of Treatment Upcoming Encounters Date Type Department Care Team (Late st Contact Info) Description 06/11/2025 9:50 AM EDT Office Visit [facility] [address] [facility] [address] [place] [id number] Frank De Souza DPM [address] [facility] [address] [place] [address] Health Maintenance Due Date Last Done Comments CT Colonography 1960 Colonoscopy 1960 Colorectal Cancer Screening 1960 FIT-DNA 1960 FIT 1960 FOBT 1960 Sigmoidoscopy 1960 Influenza Vaccine (#1) 2025 4, 06/11/2023, 05/29/2023, Additional history exists Pneumococcal Vaccine: 65+ Years Completed 4 Insurance [facility] MEDIC[facility] Care Teams Manager Library Relationship Specialty Start Date End Date Mart Jiang DO [address] [place] [address] PCP - General Internal Medicine 12/12/24
--- OUTSIDE RECORDS SUMMARY | 2025-06-11 09:22 | XMS_ITS | CCD ---
Author Organization [facility] Care Team Providers Care Driller Operator Name Role Phone MART JIANG Primary Care [...] BALL, DR EDUARDO Primary Care Unavailable MITCHELMONICA Attending Unavailable MITCHELMONICA BERGER Consulting Unavailable LUAdonis .EMERALD Admitting Unavailable BALL, DR EDUARDO Primary Care Unavailable MONICA GRULLON Consulting Unavailable LUAdonis .EMERALD Attending Unavailable DENZEL Og, DR LEA Patricia Attending Unavaila ble DENZEL Og, DR LEA Patricia Consulting Unavaila ble DENZEL Og, DR LEA Patricia Admitting Unavaila ble BALL, DR EDUARDO Primary Care Unavailable Apolinar Mart Unavailable Emerald Jeffrey. Attending Unavailable MITCHELMONICA BERGER Attending Unavailable Lue, Emerald MLenka Attending Unavailable Lue, Emerald M. Attending Unavailable Lue Emerald MLenka Attending Unavailable LueJesshy M. Attending Unavailable Lue, Emerald M. Attending Unavailable Lue, Emerald M. Attending Unavailable MITCHELMONICA Attending Unavailable Lue, Emerald MLenka Attending Unavailable MITCHELMONICA E Attending Unavailable MITCHEL, MONICA E Attending Unavailable Lue, Emerald M. Attending Unavailable MITCHEL, MONICA E Attending Unavailable MITCHEL, MONICA E Attending Unavailable Lue, Emerald M. Attending Unavailable Lue, Emerald M. Attending Unavailable Lue, Emerald M. Attending Unavailable Lue, Emerald M. Attending Unavailable Lue, Emerald M. Attending Unavailable Lue, Emerald M. Attending Unavailable Lue, Emerald M. Attending Unavailable MITCHEL, MONICA E Attending Unavailable Lue, Emerald M. Attending Unavailable Lue, Emerald MLenka Attending Unavailable DELIO GRULLON Attending Unavailable MITCHEL, MONICA Mesa Attending Unavailable Wojciech, Emerald MLenka Attending Unavailable Mart Jiang MD Primary Care Provider Mart Jiang DO Primary Care Provider Mart Jiang DO Attending Provider Mart Jiang DO Primary Care Provider FRANK DE SOUZA Attending Unavailable FRANK DE SOUZA Attending Unavailable FRANK DE SOUZA Attending Unavailable Mart Jiang DO Primary Care Provider [phone] Mart Jiang DO Attending Provider Allergies Allergy Classification Reported Allergen(s) Allergy Type Date of Onset Reaction(s) Facility (1 source) No Known Medication Allergies; Translations: [No Known Medication Allergies] Propensity to adverse reactions (disorder) [facility] Repository Medications Current Medications Medication Drug Class(es) Dates Sig (Normalized) Sig (Original) Tylenol (20 sources) Start: 07-05-2021 Tylenol Oral, Refills(s) 0 Start Date: 07/05/21 Status: Ordered aspirin 81 mg delayed release oral tablet (20 sources) Platelet Aggregation Inhibitor, Nonsteroidal Anti-inflammatory Drug Start: 10-15-2024 take 1 tablet by mouth once daily Aspirin 81 mg tablet,delayed release (DR/EC) Active 81 MG PO Daily October 15, 2024 1:00am Complies with drug therapy Start: 07-05-2021 take 1 mg by mouth e very four hours aspirin 81 mg oral capsule mg cap(s), Oral, q4hr, Refills(s) 0 Start Date: 07/05/21 Status: Ordered atenolol 50 mg oral tablet (20 sources) beta-Adrenergic Mckayla Start: 02-09-2025 take 1 tablet by mouth once daily Atenolol 50 mg tablet Active 50 MG PO Daily 90 90 February 09, 2025 10:01am Complies with drug therapy Start: 02-27-2024 End: 02-09-2025 take 0.5 tablet by mouth once daily Atenolol 100 mg tablet Discontinued 0 .ROUTE .COMPLEX 45 February 27, 2024 7:06am February 09, 2025 10:03am TAKE 1/2 TABLET BY MOUTH EVERY DAY Start: 10-13-2023 End: 02-27-2024 take 0.5 tablet by mouth once daily Atenolol 100 mg tablet Discontinued 100 MG PO Daily October 13, 2023 1:00am February 27, 2024 7:07am TAKE 1/2 TABLET Start: 07-05-2021 take 1 mg by mouth once daily atenolol 100 mg Tab mg tab(s), Oral, Daily, Refills(s) 0 Start Date: 07/05/21 Status: Ordered take 0.5 tablet by m outh once daily Atenolol 100 MG TAKE 1/2 TABLET BY MOUTH EVERY DAY Active Blood-Glucose Sensor (Dexcom G7 Sensor) device (6 sources) Start: 10-21-2024 Blood-Glucose Sensor (Dexcom G7 Sensor) device Active 0 .Route October 21, 2024 1:00am to test blood sugar 4 times daily Start: 06-13-2024 End: 06-19-2024 Blood-Glucose Sensor (Dexcom G7 Sensor) device Discontinued 0 .ROUTE .MEDSUPPLY June 13, 2024 12:00am June 19, 2024 12:38pm Use to test home BS 4x daily Start: 06-13-2024 End: 06-19-2024 Blood-Glucose Sensor (Dexcom G7 Sensor) device Discontinued 0 .ROUTE .MEDSUPPLY June 12, 2024 11:00pm June 19, 2024 11:38am Use to test home BS 4x daily Start: 06-13-2024 Blood-Glucose Sensor (Dexcom G7 Sensor) device Active 0 .ROUTE .MEDSUPPLY June 13, 2024 12:00am Use to test home BS 4x daily Blood-Glucose,Dynamic Balancer,Cont (Dexcom G7 Dynamic Balancer) misc (4 sources) Start: 10-21-2024 Blood-Glucose,Dynamic Balancer,Cont (Dexcom G7 Dynamic Balancer) misc Active 0 .Route 1 October 21, 2024 1:00am to test blood sugar 4 times daily Start: 06-13-2024 End: 06-19-2024 Blood-Glucose,Dynamic Balancer,Cont (Dexcom G7 Dynamic Balancer) misc Discontinued 0 .ROUTE .MEDSUPPLY 1 June 13, 2024 12:00am June 19, 2024 12:38pm Use to test home BS 4x daily Depo-Testosterone 200 mg/mL intramuscular solution (2 sources) Start: 07-05-2021 Depo-Testosterone 200 mg/mL intramuscular solution 200 mg = 1 mL, IntraMuscular, q2wk, inject 200mg q 4 weeks IM, # 10 mL, Refills(s) 2, Pharmacy: [facility]/pharmacy #[id number], 175, cm, 07/05/21 9:36:00 EST, Height/Length [...] 0 Start Date: 07/05/21 Status: Ordered insulin isophane, human 70 unt/ml / insulin, regular, human 30 unt/ml injectable suspension (20 sources) Insulin Start: 02-11-2024 Insulin Nph And Regular Human (Novolin 70/30 U-100 Insulin) 100 unit/mL (70-30) suspension Active SUBCUT As Directed February 11, 2024 1:09pm 35 units in am 15 units in pm Complies with drug therapy Start: 11-22-2023 End: 02-11-2024 Insulin Nph And Regular Falguni n (Novolin 70/30 U-100 Insulin) 100 unit/mL (70-30) suspension Discontinued SUBCUT As Directed November 22, 2023 8:48am February 11, 2024 1:09pm 60 units in am 40 units in pm Start: 10-13-2023 End: 11-22-2023 Insulin Nph And Regular Falguni n (Novolin 70/30 U-100 Insulin) 100 unit/mL (70-30) suspension Discontinued SUBCUT As Directed October 13, 2023 1:00am November 22, 2023 8:49am Start: 07-05-2021 Novolin 70/30 SubCutaneous, Refill(s) 0 Start Date: 07/05/21 Status: Ordered NovoLIN 70/30 (7 0-30) 100 UNIT/ML as directed Subcutaneous Active lisinopril 30 mg oral tablet (20 sources) Angiotensin Converting Enzyme Inhibitor Start: 02-09-2025 take 1 tablet by mouth once daily Lisinopril 30 mg tablet Active 30 MG PO Daily 90 February 09, 2025 10:01am Complies with drug therapy Start: 02-27-2024 End: 02-09-2025 take 1 tablet by mouth once daily Lisinopril 30 mg tablet Discontinued 0 .ROUTE .COMPLEX February 27, 2024 8:44am February 09, 2025 10:03am TAKE 1 TABLET BY MOUTH EVERY DAY Start: 02-08-2024 End: 02-27-2024 take 1 tablet by mouth once daily Lisinopril 20 mg tablet Discontinued 20 MG PO Daily 30 February 08, 2024 12:56pm February 27, 2024 8:44am Start: 10-13-2023 End: 02-08-2024 take 1 tablet by mouth once daily Lisinopril 30 mg tablet Discontinued 30 MG PO Daily October 13, 2023 1:00am February 08, 2024 12:56pm Start: 07-05-2021 take 1 mg by mouth once daily lisinopril 30 mg Tab mg tab(s), Oral, Daily, Refills(s) 0 Start Date: 07/05/21 Status: Ordered metFORMIN hydrochloride 1000 mg oral tablet (20 sources) Biguanide Start: 02-09-2025 take 1 tablet by mouth twice daily at mealtime Metformin 1,000 mg tablet Active 1000 MG PO Twice daily with meals 180 90 February 09, 2025 10:02am Complies with drug therapy Start: 02-27-2024 End: 02-09-2025 take 1 tablet by mouth twice daily at mealtime Metformin 1,000 mg tablet Discontinued 0 .ROUTE .COMPLEX 180 February 27, 2024 7:07am February 09, 2025 10:03am TAKE 1 TABLET BY MOUTH TWICE DAILY WITH FOOD Start: 10-13-2023 End: 02-27-2024 take 1 tablet by mouth twice daily at mealtime Metformin 1,000 mg tablet Discontinued 1000 MG PO Twice daily with meals October 13, 2023 1:00am February 27, 2024 7:07am Start: 07-05-2021 take 1 mg by mouth twice daily metformin 1000 mg oral tablet mg tab(s), Oral, BID, Refills(s) 0 Start Date: 07/05/21 Status: Ordered take 1 tablet by nah th every twenty-four hours metFORMIN HCl 1000 MG 1 tablet with a meal Orally Once a day Active pravastatin sodium 40 mg oral tablet (20 sources) HMG-CoA Reductase Inhibitor Start: 02-09-2025 take 1 tablet by mouth once daily at bedtime Pravastatin 40 mg tablet Active 40 MG PO Daily at bedtime 90 90 February 09, 2025 10:03am Complies with drug therapy Start: 02-27-2024 End: 02-09-2025 take 1 tablet by mouth once daily in the evening Pravastatin 40 mg tablet Discontinued 0 .ROUTE .COMPLEX 90 February 27, 2024 7:06am February 09, 2025 10:03am TAKE 1 TABLET BY MOUTH ONCE EVERY EVENING Start: 10-13-2023 End: 02-27-2024 take 1 tablet by mouth once daily Pravastatin 40 mg tablet Discontinued 40 MG PO Daily October 13, 2023 1:00am February 27, 2024 7:07am Start: 07-05-2021 take 1 mg by mouth once daily Pravachol 40 mg Tab mg tab(s), Oral, Daily, Refills(s) 0 Start Date: 07/05/21 Status: Ordered Semaglutide (11 sources) Start: 06-11-2025 inject 2 mg by subcutaneous injection every week Semaglutide (Ozempic) 2 mg/dose (8 mg/3 mL) pen injector Active 2 MG SUBCUT every week June 11, 2025 12:00am Complies with drug therapy Start: 02-09-2025 End: 06-11-2025 inject 2 mg by subcutaneous injection every week Semaglutide (Ozempic) 2 mg/dose (8 mg/3 mL) pen injector Discontinued 2 MG SUBCUT every week 3 February 09, 2025 10:04am June 11, 2025 8:30am Start: 02-09-2025 inject 2 mg by subcu taneous injection every week Semaglutide (Ozempic) 2 mg/dose (8 mg/3 mL) pen injector Active 2 MG SUBCUT every week 3 February 09, 2025 10:04am Complies with drug therapy Start: 09-10-2024 End: 02-09-2025 inject 2 mg by subcutaneous injection every week Semaglutide (Ozempic) 2 mg/dose (8 mg/3 mL) pen injector Discontinued 2 MG SUBCUT every week 3 September 10, 2024 6:36pm February 09, 2025 10:04am Start: 08-08-2024 End: 09-10-2024 inject 2 mg by subcutaneous injection every week Semaglutide (Ozempic) 2 mg/dose (8 mg/3 mL) pen injector Discontinued 2 MG SUBCUT every week 3 August 08, 2024 11:12am September 10, 2024 6:36pm Start: 03-04-2024 End: 08-08-2024 inject 2 mg by subcutaneous injection every week Semaglutide (Ozempic) 2 mg/dose (8 mg/3 mL) pen injector Discontinued 2 MG SUBCUT every week March 04, 2024 12:22pm August 08, 2024 11:12am Start: 03-04-2024 End: 03-04-2024 inject 2 mg by subcutaneous injection every week Semaglutide (Ozempic) 2 mg/dose (8 mg/3 mL) pen injector Discontinued 2 MG SUBCUT every week March 04, 2024 12:00am March 04, 2024 12:23pm Semaglutide (Ozempic) 2 mg/dose (8 mg/3 mL) pen injector (6 sources) Start: 09-10-2024 inject 2 mg by subcutaneous injection every week Semaglutide (Ozempic) 2 mg/dose (8 mg/3 mL) pen injector Active 2 MG SUBCUT every week 3 September 10, 2024 5:36pm Start: 08-08-2024 End: 09-10-2024 inject 2 mg by subcutaneous injection every week Semaglutide (Ozempic) 2 mg/dose (8 mg/3 mL) pen injector Discontinued 2 MG SUBCUT every week 3 August 08, 2024 10:12am September 10, 2024 5:36pm Start: 03-04-2024 End: 08-08-2024 inject 2 mg by subcutaneous injection every week Semaglutide (Ozempic) 2 mg/dose (8 mg/3 mL) pen injector Discontinued 2 MG SUBCUT every week 3 March 04, 2024 11:22am August 08, 2024 10:12am Start: 03-04-2024 inject 2 mg by subcu taneous injection every week Semaglutide (Ozempic) 2 mg/dose (8 mg/3 mL) pen injector Active 2 MG SUBCUT every week 3 March 04, 2024 12:22pm Start: 03-04-2024 End: 03-04-2024 inject 2 mg by subcutaneous injection every week Semaglutide (Ozempic) 2 mg/dose (8 mg/3 mL) pen injector Discontinued 2 MG SUBCUT every week March 03, 2024 11:00pm March 04, 2024 11:23am Start: 03-04-2024 End: 03-04-2024 inject 2 mg by subcutaneous injection every week Semaglutide (Ozempic) 2 mg/dose (8 mg/3 mL) pen injector Discontinued 2 MG SUBCUT every week March 04, 2024 12:00am March 04, 2024 12:23pm sildenafil 100 mg oral tablet (12 sources) Phosphodiesterase 5 Inhibitor Start: 03-21-2023 take 1 tablet by mouth once daily sildenafil 100 mg Tab See Instructions, 1 tab(s) Oral Daily 1 hour before sexual activity, # 30 tab(s), Refills(s) 3, Pharmacy: [facility] [id number], 175, cm, 02/21/23 10:05:00 EDT, Height/Length Dosing, 169.2, kg, 02/21/23 10:05:00 EDT, Weight Dosing Start Date: 03/21/23 Status: Ordered Start: 07-05-2021 take 1 tablet by anh th once daily sildenafil 100 mg Tab 100 mg = 1 tab(s), Oral, Daily, 1 hour before sexual activity, # 30 tab(s), Refills(s) 2, Pharmacy: [facility] [id number], 175, cm, 07/05/21 9:36:00 EST, Height/Length Dosing, 175, kg, 07/05/21 9:36:00 EST, Weight Dosing Start Date: 07/05/21 Status: Ordered testosterone cypionate 200 mg/mL IM Gaye (20 sources) Start: 07-10-2023 inject 200 mg by intramuscular injection every other week testosterone cypionate 200 mg/mL IM Gaye 200 mg = 1 mL, IntraMuscular, q2wk, # 4 mL, Refills(s) 0, Pharmacy: [facility]/pharmacy #[id number], 175, cm, 02/21/23 10:05:00 EDT, Height/Length Dosing, 169.2, kg, 02/21/23 10:05:00 EDT, Weight Dosing Start Date: 07/10/23 Status: Ordered Start: 05-29-2023 inject 200 mg by int ramuscular injection every other week testosterone cypionate 200 mg/mL IM Gaye 200 mg = 1 mL, IntraMuscular, q2wk, # 1 mL, Refills(s) 3, Pharmacy: [facility]/pharmacy #[id number], 175, cm, 02/21/23 10:05:00 EDT, Height/Length Dosing, 169.2, kg, 02/21/23 10:05:00 EDT, Weight Dosing Start Date: 05/29/23 Status: Ordered Start: 02-15-2023 inject 200 mg by int ramuscular injection every other week testosterone cypionate 200 mg/mL IM Gaye 200 mg = 1 mL, IntraMuscular, q2wk, # 1 mL, Refills(s) 0, Pharmacy: [facility]/pharmacy #[id number], 175, cm, 11/15/22 8:06:00 EDT, Height/Length Dosing, 163, kg, 11/15/22 8:06:00 EDT, Weight Dosing Start Date: 02/15/23 Status: Ordered Start: 11-15-2022 inject 200 mg by int ramuscular injection every other week testosterone cypionate 200 mg/mL IM Gaye 200 mg = 1 mL, IntraMuscular, q2wk, # 10 mL, Refills(s) 5, [id number] 175, cm, 11/15/22 8:06:00 EDT, Height/Length Dosing, 163, kg, 11/15/22 8:06:00 EDT, Weight Dosing Start Date: 11/15/22 Status: Ordered Start: 08-09-2022 inject 200 mg by int ramuscular injection every other week testosterone cypionate 200 mg/mL IM Gaye 200 mg = 1 mL, IntraMuscular, q2wk, # 10 mL, Refills(s) 5, [id number], 175, cm, 08/09/22 13:42:00 EST, Height/Length Dosing, 175, kg, 08/09/22 13:42:00 EST, Weight Dosing Start Date: 08/09/22 Status: Ordered testosterone cypionate 200 mg/mL intramuscular solution (12 sources) Start: 03-07-2022 testosterone c ypionate 200 mg/mL intramuscular solution 200 mg, IntraMuscular, q4wk, # 10 mL, Refills(s) 1, [id number] 175, cm, 02/07/22 9:55:00 EDT, Height/Length Dosing, 175, kg, 02/07/22 9:55:00 EDT, Weight Dosing Start Date: 03/07/22 Status: Ordered Start: 02-07-2022 testosterone c ypionate 200 mg/mL intramuscular solution 200 mg, IntraMuscular, q4wk, # 10 mL, Refills(s) 1, Pharmacy: [facility] [id number], 175, cm, 02/07/22 9:55:00 EDT, Height/Length Dosing, [...] activity, # 30 caplet(s), Refills(s) 3, Pharmacy: [id number], 175, cm, 02/07/22 9:55:00 EDT, Height/Length Dosing, 175, kg, 02/07/22 9:55:00 EDT, Weig... Start Date: 03/07/22 Status: Ordered Vitamin E (20 sources) Start: 07-05-2021 vitamin E Oral, Daily, Refills(s) 0 Start Date: 07/05/21 Status: Ordered Completed/Discontinued Medications Medication Drug Class(es) Dates Sig (Normalized) Sig (Original) Blood-Glucose Meter,Continuous (Dexcom G7 Dynamic Balancer) misc (2 sources) Start: 06-13-2024 End: 06-19-2024 Blood-Glucose Meter,Continuous (Dexcom G7 Dynamic Balancer) misc Discontinued 0 .ROUTE .MEDSUPPLY June 12, 2024 11:00pm June 19, 2024 11:38am Use to test home BS 4x daily Start: 06-13-2024 Blood-Glucose Meter,Continuous (Dexcom G7 Dynamic Balancer) misc Active 0 .ROUTE .MEDSUPPLY June 13, 2024 12:00am Use to test home BS 4x daily Blood-Glucose Meter,Continuo us (Freestyle Luciano 3 Adrian) misc (1 source) Start: 06-19-2024 End: 10-15-2024 Blood-Glucose Meter,Continuo us (Freestyle Luciano 3 Adrian) misc Discontinued 0 .ROUTE .MEDSUPPLY June 18, 2024 11:00pm October 15, 2024 9:33am As directed Blood-Glucose Sensor (Freest yle Luciano 3 Sensor) device (3 sources) Start: 06-19-2024 End: 10-15-2024 Blood-Glucose Sensor (Freest yle Luciano 3 Sensor) device Discontinued 0 .ROUTE .MEDSUPPLY June 19, 2024 12:00am October 15, 2024 10:33am As directed Start: 06-19-2024 End: 10-15-2024 Blood-Glucose Sensor (Freest yle Luciano 3 Sensor) device Discontinued 0 .ROUTE .MEDSUPPLY June 18, 2024 11:00pm October 15, 2024 9:33am As directed Blood-Glucose,Dynamic Balancer,Cont (Freestyle Luciano 3 Adrian) misc (2 sources) Start: 06-19-2024 End: 10-15-2024 Blood-Glucose,Dynamic Balancer,Cont (Freestyle Luciano 3 Adrian) misc Discontinued 0 .ROUTE .MEDSUPPLY June 19, 2024 12:00am October 15, 2024 10:33am As directed 3 ml insulin glargine 100 unt/ml pen injector (4 sources) Insulin Analog Start: 11-12-2023 End: 11-12-2023 inject 10 [IU] by subcutaneo us injection once daily in the evening Insulin Glargine (Lantus Solostar U-100 Insulin) 100 unit/mL (3 mL) insulin pen Discontinued 10 UNIT SUBCUT Every evening 11 23November 12, 2023 12:00am November 12, 2023 3:51pm 3 ml insulin lispro 100 unt/ml pen injector (2 sources) Insulin Analog Start: 11-12-2023 End: 06-13-2024 inject 10 [IU] by subcutaneo us injection three times daily Insulin Lispro (Humalog Kwikpen Insulin) 100 unit/mL insulin pen Discontinued 10 UNIT SUBCUT Three times daily 05 26November 12, 2023 12:00am June 13, 2024 10:50am Insulin Lispro (Humalog Kwikpen Insulin) 100 unit/mL insulin pen (2 sources) Start: 11-12-2023 End: 06-13-2024 inject 10 [IU] by subcutaneo us injection three times daily Insulin Lispro (Humalog Kwikpen Insulin) 100 unit/mL insulin pen Discontinued 10 UNIT SUBCUT Three times daily 05 26November 11, 2023 11:00pm June 13, 2024 9:50am Start: 11-12-2023 End: 06-13-2024 inject 10 [IU] by subcutaneous injection three times daily Insulin Lispro (Humalog Kwikpen Insulin) 100 unit/mL insulin pen Discontinued 10 UNIT SUBCUT Three times daily 05 26November 12, 2023 12:00am June 13, 2024 10:50am Semaglutide (12 sources) Start: 11-05-2023 End: 03-04-2024 Semaglutide (Ozempic) 0.25 m g or 0.5 mg (2 mg/3 mL) pen injector Discontinued 0.25 MG SUBCUT every week 3 November 05, 2023 5:02pm March 04, 2024 11:21am for 4 weeks Start: 11-05-2023 End: 03-04-2024 Semaglutide (Ozempic) 0.25 m g or 0.5 mg (2 mg/3 mL) pen injector Discontinued 0.25 MG SUBCUT every week 3 November 05, 2023 6:02pm March 04, 2024 12:21pm for 4 weeks Start: 11-01-2023 End: 11-05-2023 Semaglutide (Ozempic) 0.25 m g or 0.5 mg (2 mg/3 mL) pen injector Discontinued 0.25 MG SUBCUT every week 9 November 01, 2023 1:17pm November 05, 2023 5:05pm for 4 weeks Start: 11-01-2023 End: 11-05-2023 Semaglutide (Ozempic) 0.25 m g or 0.5 mg (2 mg/3 mL) pen injector Discontinued 0.25 MG SUBCUT every week 9 November 01, 2023 2:17pm November 05, 2023 6:05pm for 4 weeks Start: 10-30-2023 End: 11-01-2023 Semaglutide (Ozempic) 0.25 m g or 0.5 mg (2 mg/3 mL) pen injector Discontinued 0.25 MG SUBCUT every week 4.784 October 30, 2023 12:00am November 01, 2023 1:18pm for 4 weeks Start: 10-30-2023 End: 11-01-2023 Semaglutide (Ozempic) 0.25 m g or 0.5 mg (2 mg/3 mL) pen injector Discontinued 0.25 MG SUBCUT every week 4.784 October 30, 2023 1:00am November 01, 2023 2:18pm for 4 weeks 1 ml testosterone cypionate 200 mg/ml injection (8 sources) Androgen Start: 10-13-2023 End: 06-13-2024 Testosterone Cypionate 200 mg/mL oil Discontinued 200 MG IM October 13, 2023 1:00am June 13, 2024 10:12am Start: 10-13-2023 End: 10-18-2024 Testosterone Cypionate Discontinued 200 MG IM October 13, 2023 1:00am June 13, 2024 10:12am inject 1 mL by intra muscular injection every month Testosterone Cypionate 200 MG/ML 1 mL Intramuscular MONTHLY Active inject 1 mL by intra muscular injection every month Testosterone Cypionate 200 MG/ML 1 mL Intramuscular MONTHLY Active Problems Active Problems Problem Classification Problem Date Documented Da te Episodic/Chronic Allergic reactions (4 sources) Allergic contact dermatitis caused by chemical; Translations: [Allergic contact dermatitis due to other chemical products] Episodic Diabetes mellitus with complications (20 sources) Hyperglycemia due to type 2 diabetes mellitus; Translations: [Polyneuropathy due to type 2 diabetes mellitus] Onset: 08-05-2021 08-09-2022 Chronic Diabetes mellitus without complication (20 sources) Glycosuria; Translations: [Glycosuria] Onset: 11-15-2022 Episodic Disorders of lipid metabolism (14 sources) Pure hypercholesterolemia ; Translations: [Familial hypercholesterolemia ] Chronic Essential hypertension (14 sources) Essential hypertension; Translations: [Essential (primary) hypertension] Chronic Genitourinary symptoms and ill-defined conditions (1 source) Microscopic hematuria; Translations: [Other microscopic hematuria] Onset: 02-07-2022 Episodic Hyperplasia of prostate (20 sources) Benign prostatic hypertrophy with outflow obstruction; Translations: [Benign prostatic hyperplasia with lower urinary tract symptoms] Onset: 02-07-2022 Chronic Miscellaneous mental health disorders (1 source) Male erectile disorder; Translations: [Erectile dysfunction] Onset: 02-07-2022 Chronic Mycoses (4 sources) Pain in toe; Translations: [Tinea unguium] 12-17-2024 Episodic Other aftercare (3 sources) buttermaker helper (current) use of insulin; Translations: [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] Onset: 01-03-2022 Episodic Other aftercare (8 sources) Long-term current use of insulin; Translations: [penitentiary (current) use of insulin] 10-13-2023 Episodic Other and unspecified benign neoplasm (1 source) Benign neoplasm of colon, unspecified Episodic Other and unspecified benign neoplasm (4 sources) Adenoma of large intestine; Translations: [Benign neoplasm of colon, unspecified] 10-13-2023 Episodic Other bone disease and musculoskeletal deformities (4 sources) Exostosis of right foot; Translations: [Other specified disorders of bone, ankle and foot] 12-17-2024 Episodic Other diseases of kidney and ureters (2 sources) Urinary tract obstruction; Translations: [Other obstructive and reflux uropathy] Onset: 02-07-2022 Episodic Other diseases of veins and lymphatics (1 source) Lymphedema, not elsewhere classified; Translations: [Lymphedema, not elsewhere classified] Onset: 03-29-2022 Chronic Other diseases of veins and lymphatics (6 sources) Lymphedema; Translations: [Lymphedema, not elsewhere classified] Onset: 04-08-2024 04-08-2024 Chronic Other diseases of veins and lymphatics (10 sources) Peripheral venous insufficiency; Translations: [Venous insufficiency (chronic) (peripheral)] 10-13-2023 Episodic Other diseases of veins and lymphatics (4 sources) Venous insufficiency (chronic) (peripheral); Translations: [Venous (peripheral) insufficiency, unspecified] Episodic Other ear and sense organ disorders (1 source) Impacted cerumen in left ear; Translations: [Impacted cerumen, left ear] 02-09-2025 Episodic Other endocrine disorders (20 sources) Testicular [...] obesity due to excess calories Chronic Other nutritional; endocrine; and metabolic disorders (4 sources) Obesity caused by energy imbalance; Translations: [Morbid (severe) obesity due to excess calories] 10-13-2023 Chronic Other nutritional; endocrine; and metabolic disorders (6 sources) Obesity; Translations: [Obesity, unspecified] 10-30-2023 Chronic Other nutritional; endocrine; and metabolic disorders (2 sources) Obesity, unspecified; Translations: [Obesity, unspecified] 06-13-2024 Chronic Other screening for suspected conditions (not mental disorders or infectious disease) (11 sources) Encounter for screening for malignant neoplasm of prostate; Translations: [Decreased testosterone level ] Onset: 04-17-2022 Episodic Comment on above: PSA: 0.45 - 05/2024 Residual codes; unclassified (4 sources) Edema; Translations: [Localized edema] Episodic Past or Other Problems Problem Classification Problem Date Documented Da te Episodic/Chronic Residual codes; unclassified (1 source) Localized edema; Translations: [LOCALIZED EDEMA] Onset: 01-03-2022 Episodic Results Test Name Value Interpretation Reference Range Facil ity HbA1c HPLC (Bld) [Mass fract ion]on 02-09-2025 HbA1c (Bld) [Mass fraction] 6.3 % [facility] Report[facility] 09-03-2023 Lab Reports [id number] 61#1.00TIFF [facility] Report[facility] 08-30-2023 Lab Reports [id number] 79#1.00TIFF [facility] Lab Reports [id number] C3#1.00TIFF [facility] Consultation Noteon 08-23-20 Consultation Note [id number] A7#1.00TIFF [facility] Ambulatory Visit Summaryon 1 10-23-2022 Ambulatory Visit Summary SUAD CHAPPELL :1960 Visit Date:08/22/2023 Ambulatory Visit Instructions Your [...] Emerald Jeffrey MD Where: [facility] Ambulatory Visit Summaryon 1 10-08-2022 Ambulatory Visit Summary SUAD CHAPPELL :1960 Visit Date:08/07/2023 Ambulatory Visit Instructions Your [...] AM EST With: Where: [facility] [address] [place] [address] \.br\ Medications\.br\ What How Much When Instructions\.br\ [...] for choosing us for your care.\.br\ \.br\ [facility] Ambulatory Visit Summaryon 1 09-23-2022 Ambulatory Visit Summary SUAD CHAPPELL :1960 Visit Date:07/24/2023 Ambulatory Visit Instructions Your [...] AM EST With: Where: [facility] Invalid Interpretation Code [address] [place] [address] [place] [address]- \.br\ Sunday 9:45 AM EST \.br\ With: Emerald Jeffrey MD\.br\ Where: [facility] Ambulatory Visit Summaryon 09-09-2022 Ambulatory Visit Summary SUAD CHAPPELL :1960 Visit Date:07/10/2023 Ambulatory Visit Instructions Your [...] AM EST With: Where: [facility] Invalid Interpretation Code [address] [place] [address]- \.br\ Sunday 9:30 AM EST \.br\ With:\.br\ Where: [facility] Ambulatory Visit Summaryon Ambulatory Visit Summary NAYELYSUAD FUNK :1960 Visit Date:06/26/2023 Ambulatory Visit Instructions Your [...] AM EST With: Where: [facility] Invalid Interpretation Code [address] [place] [address]- \.br\ Sunday 3:45 PM EST \.br\ With:\.br\ Where: [facility] Ambulatory Visit Summaryon 1 Ambulatory Visit Summary SUAD CHAPPELL :1960 Visit Date:06/12/2023 Ambulatory Visit Instructions Your [...] 3:45 PM EDT With: Where: [facility] Invalid Interpretation Code [address] [place] [address]- \.br\ Sunday 3:45 PM EST \.br\ With:\.br\ Where: [facility] Ambulatory Visit Summaryon 1 Ambulatory Visit Summary SUAD CHAPPELL :1960 Visit Date:05/29/2023 Ambulatory Visit Instructions Your [...] PM EDT With: Where: [facility] Invalid Interpretation Code [address] [place] [address]- \.br\ Sunday 3:45 PM EST \.br\ With:\.br\ Where: [facility] Ambulatory Visit Summaryon 0 04-18-2023 Ambulatory Visit Summary SUAD CHAPPELL :1960 Visit Date:04/18/2023 Ambulatory Visit Instructions Your [...] PM EDT With: Where: [facility] Invalid Interpretation Code [address] [facility] [address]- \.br\ Sunday 3:45 PM EDT \.br\ With:\.br\ Where: [facility] Ambulatory Visit Summaryon 0 03-06-2023 Ambulatory Visit Summary SUAD CHAPPELL :1960 Visit Date:03/06/2023 Ambulatory Visit Instructions Your [...] 3:45 PM EDT With: Where: [facility] Normal [address] [place] [address]- \.br\ Medications\.br\ What How Much When Instructions\.br\ [...] Depo-Testosterone 200 mg/mL intramuscular solution, 200 mg, IntraMuscular\.br \ Allergies\.br\ No Known Medication Allergies\.br\ Problems\.br\ Ongoing - Any problem that you are currently receiving treatment for.\.br\ BPH with urinary obstruction\.br\ Erectile dysfunction\.br\ Glucosuria\.br\ Hyperglycemia due to type 2 diabetes mellitus\.br\ Hypogonadism male\.br\ Polyneuropathy due to type 2 diabetes mellitus\.br\ \.br\ [facility] Urology Office/Clinic Noteon 02-22-2023 Urology Office/Clinic Note Chief Complaint 3m f/u [facility] Staff to review labs. Pt receives 200mg Testosterone Injections q2wks for Tx of Hypogonadism. Additional DX: ED, BPH & Glucosuria *Vardenafil 20mg PRN & GILBERT T 02/14/23- 675 ([phone]) HGB 02/14/23- 15.4 HCT 02/14/23- 45.7 PSA [...] the patient. Follow-up With When Contact Information Wojciech GUERRERO, Emerald Arteaga, URL, URO In 6 months Additional Instructions: [...] 70/30, SubCutaneous (more content not included)... Normal [facility] Comment on above: Result Comment: Elec tronically Signed By: Emerald Jeffrey MD.br\Date and Time Signed: 02/21/23 22:08 EDT\.br\Electronically Co-Signed By: Aliya Pollack\.br\Date and Time Co-Signed: 02/21/23 11:07 EDT Patient Educationon 02-22-20 Patient Education Urology Hypogonadism, Male Male hypogonadism [...] Follow these instructions at home: ? Take [id number]-[id number] and prescription medicines only as told by [...] 04/14/2021 Document (more content not included)... Normal [facility] Report[facility] 02-18-2023 Lab Reports [id number] 9#1.00CD:127 Normal [facility] Lab Reports [id number] 7E#1.00CD:127 Normal [facility] Lab Reports [id number] 6#1.00CD:127 Normal [facility] Ambulatory Visit Summaryon 0 12-27-2022 Ambulatory Visit Summary SUAD CHAPPELL :1960 Visit Date:12/27/2022 Ambulatory Visit Instructions Your Diagnosis Hypogonadism male Your Care Team Attending Physician - Wojciech GUERRERO, Emerald Arteaga Primary Care Physician - MART JINAG DO This Is Your Medications List acetaminophen [...] PM EDT With: Where: [facility] Normal [address] [place] [address]- \.br\ Medications\.br\ What How Much When Instructions\.br\ [...] due to type 2 diabetes mellitus\.br\ \.br\ [facility] Ambulatory Visit Summaryon 0 11-29-2022 Ambulatory Visit Summary SUAD CHAPPELL :1960 Visit Date:11/29/2022 Ambulatory Visit Instructions Your [...] PM EDT With: Where: [facility] Invalid Interpretation Code [address] [place] [address]- \.br\ Sunday 3:15 PM EDT \.br\ With:\.br\ Where: [facility] Screenson 11-16-2022 Screens [id number] C#1.00CD:127 Normal [facility] Patient Educationon 11-16-19 Patient Education Urology Testicular [...] 11/19/2001 Document Revised: 12/04/2019 Document Reviewed: 07/09/2017 [employer] Patient Education ? 2019 [employer]. Normal [facility] Urology Office/Clinic Noteon 11-15-2022 Urology Office/Clinic Note Chief Complaint 3m w/labs HPI Staff 3m w/Testosterone & CBC due to receiving 200mg IM Testosterone Injections q2wks for Tx of Hypogonadism. Additional DX: ED & BPH Testosterone done 11/07/22- 515 ([phone]) HGB 16.5 (14.0-18.0) & HCT 49.4 (42.0-54.0) [...] 319 07/26/22 - 364 11/07/22 - 515 ([phone]), HGB 16.5 (14.0-18.0) & HCT 49.4 (42.0-54.0) [...] mos with labs Patient Education Testicular Self-Exam Nicole Roberts, personally scribed for Dr. Jeffrey on 11/15/2022 08:35:21. . Documentation recorded by [...] (less than (more content not included)... Normal [facility] Comment on above: Result Comment: Elec tronically Signed By: Wojciech GUERRERO, Emerald Parker.br\Date and Time Signed: 11/15/22 08:53 EDT Lab Reportson 11-10-2022 Lab Reports [id number] C9#1.00CD:127 Normal [facility] Lab Reports [id number] C6#1.00CD:127 Normal [facility] TESTOSTERONE, TOTALon 2022 Testosterone [Mass/Vol] 515 ng/dL Normal 264-916 [facility] Comment on above: Result Comment: Adul t male reference interval is based on a population of healthy nonobese males (BMI <30) between 19 and 39 years old. jaime Stephen.al. JCEM 2017,102;9812-3386. PMID: [id number]. Performed By: #### T ESTTOT #### [facility] [address] [place] [address] Dr. Sly Figueroa CBC AUTO DIFFon 11-07-2022 BASO # 0.1 103/ul Normal 0.0-0.1 [facility] Comment on above: Performed By: #### C BC #### [facility] [address] [place] [address] Dr. Sly Figueroa Basophils/100 WBC (Bld) 0.5 % Normal 0.2-2.0 [facility] Comment on above: Performed By: #### C BC #### [facility] [address] [place] [address] Dr. Sly Figueroa EO # 0.1 103/ul Normal 0.0-0.7 [facility] Comment on above: Performed By: #### C BC #### [facility] [address] [place] [address] Dr. Sly Figueroa Eosinophils/100 WBC (Bld) 0.7 % Critically low 0.9-7.0 [facility] Comment on above: Performed By: #### C BC #### [facility] [address] [place] [address] Dr. Sly Figueroa Erythrocyte distribution width (RBC) [Ratio] 12.1 % Normal 11.0-15.0 [facility] Comment on above: Performed By: #### C BC #### [facility] [address] [place] [address] Dr. Sly Figueroa Hematocrit (Bld) [Volume fraction] 49.4 % Normal 42.0-54.0 [facility] Comment on above: Performed By: #### C BC #### [facility] [address] [place] [address] Dr. Sly Figueroa Hemoglobin (Bld) [Mass/Vol] 16.5 g/dL Normal 14.0-18.0 [facility] Comment on above: Performed By: #### C BC #### [facility] [address] [place] [address] Dr. Sly Figueroa IG # 0.09 10e3/ul Critically high 0.00-0.03 [facility] Comment on above: Performed By: #### C BC #### [facility] [address] [place] [address] Dr. Sly Figueroa IG % 0.8 % Critically high 0.0-0.5 [facility] Comment on above: Performed By: #### C BC #### [facility] [address] [place] [address] Dr. Sly Figueroa LYMPH # 3.5 103/ul Normal 1.2-3.8 [facility] Comment on above: Performed By: #### C BC #### [facility] [address] [place] [address] Dr. Sly Figueroa Lymphocytes/100 WBC (Bld) 29.8 % Normal 20.5-60.0 [facility] Comment on above: Performed By: #### C BC #### [facility] [address] [place] [address] Dr. Sly Figueroa MANUAL DIFF REQ NO Normal [facility] Comment on above: Performed By: #### C BC #### [facility] [address] [place] [address] Dr. Sly Figueroa MCH (RBC) [Entitic mass] 29.5 pg Normal 25.9-34.0 [facility] Comment on above: Performed By: #### C BC #### [facility] [address] [place] [address] Dr. Sly Figueroa MCHC (RBC) [Mass/Vol] 33.4 g/dL Normal 29.9-35.2 [facility] Comment on above: Performed By: #### C BC #### [facility] [address] [place] [address] Dr. Sly Figueroa MCV (RBC) [Entitic vol] 88.2 fL Normal 80.0-94.0 [facility] Comment on above: Performed By: #### C BC #### [facility] [address] [place] [address] Dr. Sly Figueroa MONO # 1.0 103/ul Critically high 0.3-0.8 [facility] Comment on above: Performed By: #### C BC #### [facility] [address] [place] [address] Dr. Sly Figueroa Monocytes/100 WBC (Bld) 8.6 % Normal 1.7-12.0 [facility] Comment on above: Performed By: #### C BC #### [facility] [address] [place] [address] Dr. Sly Figueroa NEUT # 7.1 103/ul Critically high 1.4-6.5 [facility] Comment on above: Performed By: #### C BC #### [facility] [address] [place] [address] Dr. Sly Figueroa Neutrophils/100 WBC (Bld) 59.6 % Normal 43.0-75.0 [facility] Comment on above: Performed By: #### C BC #### [facility] [address] [address] [address] Sly Figueroa Platelet mean volume (Bld) [Entitic vol] 9.2 fL Critically low 9.5-13.5 [facility] Comment on above: Performed By: #### C BC #### [facility] [address] [address] [address] Sly Figueroa PLT 325 103/ul Normal 150-450 [facility] Comment on above: Performed By: #### C BC #### [facility] [address] [place] [address] Dr. Sly Figueroa RBC 5.60 106/ul Normal 4.70-6.10 [facility] Comment on above: Performed By: #### C BC #### [facility] [address] [place] [address] Dr. Sly Figueroa WBC 11.9 103/ul Critically high 4.0-11.0 [facility] Comment on above: Performed By: #### C BC #### [facility] [address] [place] [address] Dr. Sly Figueroa GLYCOHEMOGLOBIN A1Con 2022 ADA RECOMMENDATION SEE BELOW Normal [facility] Comment on above: Result Comment: ADA RECOMMENDED LIMIT 4.0 - 6.0 ADA THERAPEUTIC TARGET < 7.0 ACTION SUGGESTED > 7.0 Performed By: #### A 1C #### [facility] [address] [place] [address] Dr. Sly Figueroa Glucose [Mass/Vol] 203 mg/dL Normal [facility] Comment on above: Performed By: #### A 1C #### [facility] [address] [place] [address] Dr. Sly Figueroa HbA1c (Bld) [Mass fraction] 8.7 % Critically high 4.5-6.2 [facility] Comment on above: Performed By: #### A 1C #### [facility] [address] [place] [address] Dr. Sly Figueroa Ambulatory Visit Summaryon 0 10-31-2022 Ambulatory Visit Summary SUAD CHAPPELL :1960 Visit Date:10/31/2022 Ambulatory Visit Instructions Your Diagnosis Hypogonadism male Your Care Team Attending Physician - MONICA GRULLON PA-C Primary Care Physician MART MCDONALD DO This Is Your Medications List acetaminophen [...] Sunday 8:00 AM EDT With: Wojciech GUERRERO, Emerald Arteaga Where: [facility] Ambulatory Visit Summaryon 0 10-03-2022 Ambulatory Visit Summary SUAD CHAPPELL :1960 Visit Date:10/03/2022 Ambulatory Visit Instructions Your [...] 3:30 PM EST With: [facility]: [facility] Normal [address] [place] [address]- \.br\ Medications\.br\ What How Much When Instructions\.br\ [...] due to type 2 diabetes mellitus\.br\ \.br\ [facility] Ambulatory Visit Summaryon 0 09-19-2022 Ambulatory Visit Summary SUAD CHAPPELL :1960 Visit Date:09/19/2022 Ambulatory Visit Instructions Your [...] 3:30 PM EST With: Where: [facility] Invalid Interpretation Code [address] [place] [address]- \.br\ Sunday 8:30 AM EDT \.br\ With: Wojciech GUERRERO, Emerald Arteaga\.br\ Where: [facility] Ambulatory Visit Summaryon 0 09-05-2022 Ambulatory Visit Summary SUAD CHAPPELL :1960 Visit Date:09/05/2022 Ambulatory Visit Instructions Your [...] 3:30 PM EST With: Where: [facility] Invalid Interpretation Code [address] [place] [address]- \.br\ Sunday 3:30 PM EST \.br\ With:\.br\ Where: [facility] TESTOSTERONE, TOTALon 2021 Testosterone [Mass/Vol] 364 ng/dL Normal 264-916 [facility] Comment on above: Result Comment: Adul t male reference interval is based on a population of healthy nonobese males (BMI <30) between 19 and 39 years old. jaime Stephen.al. JCEM 2017,102;3754-0168. PMID: [id number]. Performed By: #### T ESTTOT #### [facility] [address] [place] [address] Dr. Sly Figueroa MICROALBUMIN URINEon 022 Albumin, Urine 16.7 ug/mL Normal Not Estab. [facility] Comment on above: Performed By: #### A 1C #### [facility] [address] [address] [address] Sly Figueroa CBC W MANUAL DIFFon 04-14-20 22 ATYPICAL LYMPH # 0.97 103/ul Normal [facility] Comment on above: Performed By: #### C BCMAN #### [facility] [address] [address] [address] Sly Figueroa ATYPICAL LYMPH % 8 % Normal [facility] Comment on above: Performed By: #### C BCMAN #### [facility] [address] [place] [address] Dr. Sly Figueroa BAND # Normal 0.0-0.3 [facility] Comment on above: Performed By: #### C BLAZE #### [facility] [address] [place] [address] Dr. Sly Figueroa BAND % Normal 0-5 [facility] Comment on above: Performed By: #### C BLAZE #### [facility] [address] [place] [address] Dr. Sly Figueroa BASOM # 0.00 103/ul Normal 0.00-0.10 [facility] Comment on above: Performed By: #### C BLAZE #### [facility] [address] [place] [address] Dr. Sly Figueroa BASOM % 0.0 % Critically low 0.2-2.0 [facility] Comment on above: Performed By: #### C BLAZE #### [facility] [address] [place] [address] Dr. Sly Figueroa BLAST # Normal [facility] Comment on above: Performed By: #### C BLAZE #### [facility] [address] [place] [address] Dr. Sly Figueroa BLAST % Normal [facility] Comment on above: Performed By: #### C BLAZE #### [facility] [address] [place] [address] Dr. Sly Figueroa CORRECTED WBC Normal 4.0-11.0 [facility] Comment on above: Performed By: #### C BLAZE #### [facility] [address] [place] [address] Dr. Sly Figueroa EOS # 0.12 103/ul Normal 0.00-0.70 [facility] Comment on above: Performed By: #### C BLAZE #### [facility] [address] [place] [address] Dr. Sly Figueroa EOS% 1.0 % Normal 0.9-7.0 [facility] Comment on above: Performed By: #### C BLAZE #### [facility] [address] [place] [address] Dr. Sly Figueroa HCT 46.2 % Normal 42.0-54.0 [facility] Comment on above: Performed By: #### C BLAZE #### [facility] [address] [address] [address] Sly Figueroa HGB 15.2 g/dl Normal 14.0-18.0 [facility] Comment on above: Performed By: #### C BLAZE #### [facility] [address] [address] [address] Sly Figueroa LYMPHM # 4.60 103/ul Critically high 1.20-3.80 [facility] Comment on above: Performed By: #### C BLAZE #### [facility] [address] [place] [address] Dr. Sly Figueroa LYMPHM% 38.0 % Normal 20.5-60.0 [facility] Comment on above: Performed By: #### C BLAZE #### [facility] [address] [place] [address] Dr. Sly Figueroa MCH 29.9 pg Normal 25.9-34.0 [facility] Comment on above: Performed By: #### C BLAZE #### [facility] [address] [place] [address] Dr. Sly Figueroa MCHC 32.9 g/dl Normal 29.9-35.2 [facility] Comment on above: Performed By: #### C BLAZE #### [facility] [address] [place] [address] Dr. Sly Figueroa MCV 90.9 fL Normal 80.0-94.0 [facility] Comment on above: Performed By: #### C BLAZE #### [facility] [address] [place] [address] Dr. Sly Figueroa METAMYELOCYTE # Normal [facility] Comment on above: Performed By: #### C BLAZE #### [facility] [address] [place] [address] Dr. Sly Figueroa METAMYELOCYTE % Normal [facility] Comment on above: Performed By: #### C BLAZE #### [facility] [address] [place] [address] Dr. Sly Figueroa MONOM# 1.09 103/ul Critically high 0.30-0.80 [facility] Comment on above: Performed By: #### C BCDELFINA #### [facility] [address] [place] [address] Dr. Sly Figueroa MONOM% 9.0 % Normal 1.7-12.0 [facility] Comment on above: Performed By: #### C BLAZE #### [facility] [address] [place] [address] Dr. Sly Figueroa MPV 10.6 fL Normal 9.5-13.5 [facility] Comment on above: Performed By: #### C BCDELFINA #### [facility] [address] [place] [address] Dr. Sly Figueroa MYELOCYTE # Normal [facility] Comment on above: Performed By: #### C BLAZE #### [facility] [address] [place] [address] Dr. Sly Figueroa MYELOCYTE % Normal [facility] Comment on above: Performed By: #### C BLAZE #### [facility] [address] [place] [address] Dr. Sly Figueroa NRBC Normal [facility] Comment on above: Performed By: #### C BLAZE #### [facility] [address] [place] [address] Dr. Sly Figueroa PLT 294 103/ul Normal 150-450 [facility] Comment on above: Performed By: #### C BLAZE #### [facility] [address] [place] [address] Dr. Sly Figueroa RBC 5.08 106/ul Normal 4.70-6.10 [facility] Comment on above: Performed By: #### C BLAZE #### [facility] [address] [place] [address] Dr. Sly Figueroa RDW 12.5 % Normal 11.0-15.0 [facility] Comment on above: Performed By: #### C BCDELFINA #### [facility] [address] [place] [address] Dr. Sly Figueroa SEG # 5.32 103/ul Normal 1.40-6.50 [facility] Comment on above: Performed By: #### C BLAZE #### [facility] [address] [address] [address] Sly Figueroa SEG % 44.0 % Normal 43.0-75.0 [facility] Comment on above: Performed By: #### C BLAZE #### [facility] [address] [address] [address] Sly Figueroa WBC 12.1 103/ul Critically high 4.0-11.0 [facility] Comment on above: Performed By: #### C BLAZE #### [facility] [address] [address] [address] Sly Figueroa GLYCOHEMOGLOBIN A1Con 2021 ADA RECOMMENDATION SEE BELOW Normal [facility] Comment on above: Result Comment: ADA RECOMMENDED LIMIT 4.0 - 6.0 ADA THERAPEUTIC TARGET < 7.0 ACTION SUGGESTED > 7.0 Performed By: #### A 1C #### [facility] [address] [place] [address] Dr. Sly Figueroa Glucose [Mass/Vol] 163 mg/dL Normal [facility] Comment on above: Performed By: #### A 1C #### [facility] [address] [place] [address] Dr. Sly Figueroa HbA1c (Bld) [Mass fraction] 7.3 % Critically high 4.5-6.2 [facility] Comment on above: Performed By: #### A 1C #### [facility] [address] [place] [address] Dr. Sly Figueroa LIPID PROFILEon 04-14-2022 CHOL-HDL RATIO NORM SEE BELOW Normal [facility] Comment on above: Result Comment: 3.3 - 4.4 LOW RISK 4.4 - 7.1 AVERAGE RISK 7.1 - 11.0 MODERATE RISK >11.0 HIGH RISK Performed By: #### A 1C #### [facility] [address] [place] [address] Dr. Sly Figueroa Cholesterol [Mass/Vol] 145 mg/dL Normal <=200 [facility] Comment on above: Performed By: #### A 1C #### [facility] [address] [address] [address] Sly Figueroa Cholesterol in HDL [Mass/Vol] 42 mg/dL Normal 40-60 [facility] Comment on above: Performed By: #### A 1C #### [facility] [address] [address] [address] Sly Figueroa Cholesterol in LDL [Mass/Vol] 75.2 mg/dL Normal [facility] Comment on above: Performed By: #### A 1C #### [facility] [address] [address] [address] Sly Figueroa Cholesterol.total/C holesterol in HDL [Mass ratio] 3.5 {ratio} Normal [facility] Comment on above: Performed By: #### A 1C #### [facility] [address] [address] [address] Sly Figueroa HDL NORMAL > or = 60 mg/dl - LOW CARDIOVASCULAR RISK <40 mg/dl - HIGH CARDIOVASCULAR RISK Normal [facility] Comment on above: Performed By: #### A 1C #### [facility] [address] [address] [address] Sly Figueroa LDL CALC NORMAL SEE BELOW Normal [facility] Comment on above: Result Comment: <100 mg/dl OPTIMAL 100 - 129 mg/dl NEAR OR ABOVE OPTIMAL 130 - 159 mg/dl BORDERLINE HIGH 160 - 189 mg/dl HIGH >190 mg/dl VERY HIGH Performed By: #### A 1C #### [facility] [address] [address] [address] Sly Figueroa Triglyceride [Mass/Vol] 139 mg/dL Normal <=150 [facility] Comment on above: Performed By: #### A 1C #### [facility] [address] [address] [address] Sly Figueroa VLDL CALC 27.8 mg/dL Normal [facility] Comment on above: Performed By: #### A 1C #### [facility] [address] [address] [address] Sly Figueroa PROF 14(COMP METB)on 022 Albumin [Mass/Vol] 3.5 g/dL Normal 3.4-5.0 [facility] Comment on above: Performed By: #### A 1C #### [facility] [address] [address] [address] Sly Figueroa Albumin/Globulin [Mass ratio] 0.9 {ratio} Normal [facility] Comment on above: Performed By: #### A 1C #### [facility] [address] [place] [address] Dr. Sly Figueroa ALP [Catalytic activity/Vol] 77 U/L Normal 46-116 [facility] Comment on above: Performed By: #### A 1C #### [facility] [address] [place] [address] Dr. Sly Figueroa ALT [Catalytic activity/Vol] 19 U/L Normal 16-63 [facility] Comment on above: Performed By: #### A 1C #### [facility] [address] [place] [address] Dr. Sly Figueroa Anion gap [Moles/Vol] 14.3 mmol/L Normal [facility] Comment on above: Performed By: #### A 1C #### [facility] [address] [place] [address] Dr. Sly Figueroa AST [Catalytic activity/Vol] 22 U/L Normal 15-37 [facility] Comment on above: Performed By: #### A 1C #### [facility] [address] [place] [address] Dr. Sly Figueroa Bilirubin [Mass/Vol] 1.3 mg/dL Critically high 0.2-1.0 [facility] Comment on above: Performed By: #### A 1C #### [facility] [address] [place] [address] Dr. Sly Figueroa Calcium [Mass/Vol] 9.1 mg/dL Normal 8.5-10.1 [facility] Comment on above: Performed By: #### A 1C #### [facility] [address] [place] [address] Dr. Sly Figueroa Chloride [Moles/Vol] 99 mmol/L Normal 98-107 [facility] Comment on above: Performed By: #### A 1C #### [facility] [address] [address] [address] Sly Figueroa CO2 [Moles/Vol] 25.2 mmol/L Normal 21.0-32.0 [facility] Comment on above: Performed By: #### A 1C #### [facility] [address] [place] [address] Dr. Sly Figueroa Creatinine [Mass/Vol] 1.08 mg/dL Normal 0.70-1.30 [facility] Comment on above: Performed By: #### A 1C #### [facility] [address] [place] [address] Dr. Sly Figueroa EGFR-AF LITHUANIAN 60 mL/min/1.73m2 Normal >=60 [facility] Comment on above: Performed By: #### A 1C #### [facility] [address] [place] [address] Dr. Sly Figueroa EGFR-NON AF LITHUANIAN >60 Normal >=60 [facility] Comment on above: Performed By: #### A 1C #### [facility] [address] [place] [address] Dr. Sly Figueroa Globulin (S) [Mass/Vol] 4.1 g/dL Normal [facility] Comment on above: Performed By: #### A 1C #### [facility] [address] [place] [address] Dr. Sly Figueroa Glucose [Mass/Vol] 203 mg/dL Critically high 74-106 [facility] Comment on above: Performed By: #### A 1C #### [facility] [address] [place] [address] Dr. Sly Figueroa Potassium [Moles/Vol] 4.5 mmol/L Normal 3.5-5.1 [facility] Comment on above: Performed By: #### A 1C #### [facility] [address] [place] [address] Dr. Sly Figueroa Protein [Mass/Vol] 7.6 g/dL Normal 6.4-8.2 [facility] Comment on above: Performed By: #### A 1C #### [facility] [address] [place] [address] Dr. Sly Figueroa Sodium [Moles/Vol] 134 mmol/L Critically low 136-145 [facility] Comment on above: Performed By: #### A 1C #### [facility] [address] [place], [place] [address] Dr. Sly Figueroa Urea nitrogen [Mass/Vol] 11.0 mg/dL Normal 7.0-18.0 [facility] Comment on above: Performed By: #### A 1C #### [facility] [address] [place], [place] [address] Dr. Sly Figueroa Urea nitrogen/Creatinine [Mass ratio] 10.2 mg/mg Normal [facility] Comment on above: Performed By: #### A 1C #### [facility] [address] [place], [place] [address] Dr. Sly Figueroa TESTOSTERONE, TOTALon 2021 Testosterone [Mass/Vol] 319 ng/dL Normal 264-916 [facility] Comment on above: Result Comment: Adul t male reference interval is based on a population of healthy nonobese males (BMI <30) between 19 and 39 years old. Zafar et.al. JCEM 2017,102;8742-9093. PMID: [id number]. Performed By: #### T ESTTOT #### [facility] [address] [place], [place] [address] Dr. Sly Figueroa D-DIMERon 12-28-2021 D-DIMER 0.35 mg/L FEU Normal 0.19-0.50 [facility] Comment on above: Performed By: #### D DIM #### [facility] [address] [place] [address] Dr. Sly Figueroa D-DIMER COMMENTS SEE BELOW Normal [facility] Comment on above: Result Comment: Incr eases [...] hospitalization. Performed By: #### D DIM #### [facility] [address] [place], [place] [address] Dr. Sly Figueroa GLYCOHEMOGLOBIN A1Con 2021 ADA RECOMMENDATION SEE BELOW Normal [facility] Comment on above: Result Comment: ADA RECOMMENDED LIMIT 4.0 - 6.0 ADA THERAPEUTIC TARGET < 7.0 ACTION SUGGESTED > 7.0 Performed By: #### D ATA1C #### [facility] [address] [address] [address] Sly Figueroa Glucose [Mass/Vol] 160 mg/dL Normal [facility] Comment on above: Performed By: #### D ATA1C #### [facility] [address] [address] [address] Sly Figueroa HbA1c (Bld) [Mass fraction] 7.2 % Critically high 4.5-6.2 [facility] Comment on above: Performed By: #### D ATA1C #### [facility] [address] [address] [address] Sly Figueroa Vital Signs Date Time Vital Sign Value Performing Clinician Facility 06-11-2025 08:01-0400 Body height 182.88 cm [employer] DO Work Phone: [facility] 06-11-2025 08:01-0400 Body mass index (BMI) [Ratio] 43.5 kg/m2 [employer] DO Work Phone: [facility] 06-11-2025 08:01-0400 Body weight 145.6 kg [employer] DO Work Phone: [facility] 06-11-2025 08:01-0400 Diastolic blood pressure 70 mm[Hg] [employer] DO Work Phone: [facility] 06-11-2025 08:01-0400 Heart rate 78 /min [employer] DO Work Phone: [facility] 06-11-2025 08:01-0400 Respiratory rate 14 /min [employer] DO Work Phone: [facility] 06-11-2025 08:01-0400 SaO2% (BldA) [Mass fraction] 98 % Mart Ball DO Work Phone: [facility] 06-11-2025 08:01-0400 Systolic blood pressure 117 mm[Hg] Mart Ball DO Work Phone: [facility] 03-12-2025 09:14-0400 Body height 175.3 cm Frank Brown DPM Work Phone: [facility] 03-12-2025 09:14-0400 Body mass index (BMI) [Ratio] 48.73 kg/m2 Frank Ap DPM Work Phone: [facility] 03-12-2025 09:14-0400 Body weight 149.69 kg Frank Ap DPM Work Phone: [facility] 03-12-2025 09:14-0400 Respiratory rate 18 /min Frank Ap DPM Work Phone: [facility] 03-04-2025 13:39-0400 Body height 182.88 cm Mart Ball DO Work Phone: [facility] 03-04-2025 13:39-0400 Body mass index (BMI) [Ratio] 43.4 kg/m2 Mart Ball DO Work Phone: [facility] 03-04-2025 13:39-0400 Body weight 145.14 kg Mart Ball DO Work Phone: [facility] 03-04-2025 13:39-0400 Diastolic blood pressure 68 mm[Hg] Mart Ball DO Work Phone: [facility] 03-04-2025 13:39-0400 Heart rate 81 /min Mart Ball DO Work Phone: [facility] 03-04-2025 13:39-0400 Respiratory rate 12 /min Mart Ball DO Work Phone: [facility] 03-04-2025 13:39-0400 SaO2% (BldA) [Mass fraction] 98 % Mart Ball DO Work Phone: [facility] 03-04-2025 13:39-0400 Systolic blood pressure 113 mm[Hg] Mart Ball DO Work Phone: [facility] 02-09-2025 09:27-0400 Body height 182.88 cm Mart Ball DO Work Phone: [facility] 02-09-2025 09:27-0400 Body mass index (BMI) [Ratio] 43.1 kg/m2 Mart Ball DO Work Phone: [facility] 02-09-2025 09:27-0400 Body weight 144.24 kg Mart Ball DO Work Phone: [facility] 02-09-2025 09:27-0400 Diastolic blood pressure 77 mm[Hg] Mart Ball DO Work Phone: [facility] 02-09-2025 09:27-0400 Heart rate 77 /min Mart Ball DO Work Phone: [facility] 02-09-2025 09:27-0400 Respiratory rate 12 /min Mart Ball DO Work Phone: [facility] 02-09-2025 09:27-0400 SaO2% (BldA) [Mass fraction] 97 % Mart Ball DO Work Phone: [facility] 02-09-2025 09:27-0400 Systolic blood pressure 130 mm[Hg] Mart Ball DO Work Phone: [facility] 12-17-2024 14:14-0400 Body height 175.3 cm Frank De Souza DPM Work Phone: [facility] 12-17-2024 14:14-0400 Body mass index (BMI) [Ratio] 48.73 kg/m2 Frank De Souza DPM Work Phone: [facility] 12-17-2024 14:14-0400 Body weight 149.69 kg Frank De Souza DPM Work Phone: [facility] 12-17-2024 14:14-0400 Respiratory rate 16 /min Frank De Souza DPM Work Phone: [facility] 10-15-2024 09:31-0500 Body height 182.88 cm [facility] 10-15-2024 09:31-0500 Body mass index (BMI) [Ratio] 43.9 kg/m2 [facility] 10-15-2024 09:31-0500 Body weight 146.73 kg [facility] 10-15-2024 09:31-0500 Diastolic blood pressure 70 mm[Hg] [facility] 10-15-2024 09:31-0500 Heart rate 91 /min [facility] 10-15-2024 09:31-0500 SaO2% (BldA) [Mass fraction] 98 % [facility] 10-15-2024 09:31-0500 Systolic blood pressure 130 mm[Hg] [facility] 06-13-2024 10:03-0400 Body height 182.88 cm [facility] 06-13-2024 10:03-0400 Body mass index (BMI) [Ratio] 43.8 kg/m2 [facility] 06-13-2024 10:03-0400 Body weight 146.68 kg [facility] 09-05-2023 10:11-0500 Diastolic blood pressure 74 mm[Hg] Emerald Lue [facility] 09-05-2023 10:11-0500 Mean blood pressure 97 mm[Hg] Emerald Lue [facility] 09-05-2023 10:11-0500 Systolic blood pressure 142 mm[Hg] Emerald Lue [facility] 09-05-2023 10:01-0500 Blood Pressure Location Emerald Lue [facility] 09-05-2023 10:01-0500 Diastolic blood pressure 72 mm[Hg] Emerald Lue [facility] 09-05-2023 10:01-0500 Heart rate 82 /min Emerald Lue [facility] 09-05-2023 10:01-0500 Systolic blood pressure 142 mm[Hg] Emerald Lue [facility] 06-12-2023 10:30-0400 Body height 182.88 cm Mart Ball Other [facility] Other 06-12-2023 10:30-0400 Body mass index (BMI) [Ratio] 50.83 kg/m2 Mart Ball Other [employer] Other 06-12-2023 10:30-0400 Body weight 170.01 kg Mart Ball Other [employer] Other 06-12-2023 10:30-0400 Diastolic blood pressure 90 mm[Hg] Mart Ball Other [employer] Other 06-12-2023 10:30-0400 Respiratory rate 20 /min Mart Ball Other [employer] Other 06-12-2023 10:30-0400 Systolic blood pressure 162 mm[Hg] Mart Ball Other [facility] Other 02-21-2023 10:02-0400 Blood Pressure Location Emerald Lue [facility] 02-21-2023 10:02-0400 Diastolic blood pressure 70 mm[Hg] Emerald Lue [facility] 02-21-2023 10:02-0400 Heart rate 79 /min Emerald Lue [facility] 02-21-2023 10:02-0400 Respiratory rate 16 /min Emerald Lue [facility] 02-21-2023 10:02-0400 Systolic blood pressure 149 mm[Hg] Emerald Lue [facility] 11-17-2022 11:00-0400 Body height 182.88 cm [employer] Other [facility] Other 11-17-2022 11:00-0400 Body mass index (BMI) [Ratio] 50.5 kg/m2 Mart Ball Other [facility] Other 11-17-2022 11:00-0400 Body weight 168.92 kg Mart Ball Other [facility] Other 11-17-2022 11:00-0400 Diastolic blood pressure 82 mm[Hg] Mart Ball Other [facility] Other 11-17-2022 11:00-0400 Respiratory rate 12 /min Mart Ball Other [facility] Other 11-17-2022 11:00-0400 Systolic blood pressure 130 mm[Hg] Mart Ball Other [facility] Other 11-15-2022 08:04-0400 Blood Pressure Location Emerald Lue [facility] 11-15-2022 08:04-0400 Diastolic blood pressure 72 mm[Hg] Emerald Lue [facility] 11-15-2022 08:04-0400 Heart rate 94 /min Emerald Lue [facility] 11-15-2022 08:04-0400 Respiratory rate 16 /min Emerald Lue [facility] 11-15-2022 08:04-0400 Systolic blood pressure 136 mm[Hg] Emerald Lue [facility] 02-07-2022 09:38-0400 Blood Pressure Location Lea Mahoney Jr. [facility] 02-07-2022 09:38-0400 Diastolic blood pressure 72 mm[Hg] eLa Mahoney Jr. [facility] 02-07-2022 09:38-0400 Heart rate 71 /min Lea Mahoney Jr. [facility] 02-07-2022 09:38-0400 Respiratory rate 16 /min Lea Mahoney Jr. [facility] 02-07-2022 09:38-0400 Systolic blood pressure 125 mm[Hg] Lea Mahoney Jr. [facility] Encounters Encounter Date Encounter Type Care Provider Facility Start: 06-11-2025 End: 06-11-2025 ambulatory Mart Jiang DO Work Phone: [facility] Work Phone: Start: 06-11-2025 End: 06-11-2025 Patient encounter procedure Mart Jiang DO -[facility] Work Phone: Start: 03-12-2025 End: 03-12-2025 Bamboo flowsheet Frank De Souza DPM Work Phone: [facility] Start: 03-12-2025 End: 03-12-2025 Bamboo flowsheet Frank De Souza DPM Work Phone: [facility] Start: 03-12-2025 End: 03-12-2025 Office outpatient visit 15 minutes Frank De Souza DPM Work Phone: [facility] Comment on above: Exostosis of right f oot (Primary Dx); Diabetes 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, unspecified whether oil heaterman insulin use ([facility]); Pain due to onychomycosis of toenails of both feet Start: 03-12-2025 End: 03-12-2025 ambulatory FRANK DE SOUZA Not Available Start: 03-04-2025 End: 03-04-2025 ambulatory Mart Jiang DO Work Phone: [facility] Work Phone: Start: 03-04-2025 End: 03-04-2025 Patient encounter procedure Mart Jiang DO -[facility] Work Phone: Start: 02-09-2025 End: 02-09-2025 Patient encounter procedure Mart Jiang DO [facility] Work Phone: Start: 12-17-2024 End: 12-17-2024 Patient encounter procedure Frank De Souza DPM Work Phone: [facility] Comment on above: Diabetes mellitus du e to underlying condition with diabetic polyneuropathy, unspecified whether jail insulin use ([facility]) (Primary Dx); Pain due to onychomycosis of toenails of both feet; Exostosis of right foot Start: 12-17-2024 End: 12-17-2024 ambulatory FRANK DE SOUZA Not Available Start: 12-17-2024 End: 12-17-2024 Bamboo flowsheet Frank De Souza DPM Work Phone: [facility] Start: 12-17-2024 End: 12-17-2024 Bamboo flowsheet Frank De Souza DPM Work Phone: [facility] Start: 10-15-2024 End: 10-15-2024 ambulatory [facility] Work Phone: Start: 10-15-2024 End: 10-15-2024 Patient encounter procedure [facility] Work Phone: Start: 08-06-2024 End: 08-06-2024 Patient encounter procedure [facility] Work Phone: Start: 06-13-2024 End: 06-13-2024 ambulatory [facility] Work Phone: Start: 06-13-2024 End: 06-13-2024 Encounter for general adult medical examination without abnormal findings [facility] Start: 06-13-2024 End: 06-13-2024 Patient encounter procedure [facility] Work Phone: Start: 04-08-2024 End: 04-08-2024 ambulatory FRANK DE SOUZA Not Available Start: 09-05-2023 ambulatory Emerald M. Lue Facility:[facility] Start: 09-05-2023 End: 09-05-2023 Patient encounter procedure Emerald M. Lue [facility] Start: 08-22-2023 End: 08-23-2023 ambulatory Emerald M. Lue Facility:[facility] Start: 08-22-2023 End: 08-22-2023 Patient encounter procedure Emerald M. Lue [facility] Start: 08-07-2023 End: 08-08-2023 ambulatory Emerald M. Lue Facility:[facility] Start: 08-07-2023 End: 08-07-2023 Patient encounter procedure Emerald M. Valentinee [facility] [employer] Start: 07-24-2023 End: 07-25-2023 ambulatory Emerald M. Lue Facility:[employer] Start: 07-24-2023 End: 07-24-2023 Patient encounter procedure Emerald M. Lue [facility] [employer] Start: 07-10-2023 End: 07-11-2023 ambulatory Emerald Shaista. Lue Facility:[employer] Start: 07-10-2023 End: 07-10-2023 Patient encounter procedure Emerald M. Lue [facility] [employer] Start: 06-26-2023 End: 06-27-2023 ambulatory Emerald M. Lue Facility:[employer] Start: 06-26-2023 End: 06-26-2023 Patient encounter procedure Emerald Noonan. Lue [facility] [employer] Start: 06-13-2023 End: 06-13-2023 ambulatory Mart Jiang Other [employer] Other Start: 06-13-2023 Telephone encounter Mart Jiang [facility] Start: 06-12-2023 Encounter for genera l adult medical examination without abnormal findings Mart Jiang [facility] Start: 06-12-2023 Periodic preventive med est patient 40-64yrs Mart Jiang [facility] Start: 06-12-2023 End: 06-13-2023 ambulatory Emerald M. Lue [employer] Other Start: 05-29-2023 End: 05-30-2023 ambulatory Emerald M. Lue Facility:[facility] Start: 05-29-2023 End: 05-29-2023 Patient encounter procedure Emerald Noonan. [facility] Start: 05-23-2023 ambulatory Emerald M. Lue Facility:[facility] Start: 05-16-2023 End: 05-17-2023 ambulatory Emerald M. Lue Facility:[facility] Start: 05-02-2023 End: 05-03-2023 ambulatory Emerald M. Lue Facility:[facility] Start: 05-02-2023 End: 05-02-2023 Patient encounter procedure [facility]. [facility]ue [facility] Start: 04-18-2023 End: 04-19-2023 ambulatory Emerald M. Lue Facility:[facility] Start: 04-18-2023 End: 04-18-2023 Patient encounter procedure [facility] Start: 04-04-2023 End: 04-05-2023 ambulatory Emerald M. Lue Facility:[facility] Start: 04-04-2023 End: 04-04-2023 Patient encounter procedure [facility] M. Lue [facility] Start: 03-19-2023 End: 03-20-2023 ambulatory MONICA GURLLON Facility:[facility] Start: 03-19-2023 End: 03-19-2023 Patient encounter procedure MONICA GRULLON [facility] Start: 03-06-2023 End: 03-07-2023 ambulatory DELIO GRULLON Facility:[facility] Start: 03-06-2023 End: 03-06-2023 Patient encounter procedure DELIO Jerez MITCHEL [facility] [employer] Start: 02-21-2023 End: 02-22-2023 [facility] Start: 02-21-2023 End: 02-21-2023 Patient encounter procedure Emerald Noonan. Valentinee [facility] [employer] Start: 02-07-2023 End: 02-08-2023 ambulatory [facility] Start: 02-07-2023 End: 02-07-2023 Patient encounter procedure MONICA FITCHRY [facility] [employer] Start: 01-24-2023 End: 01-25-2023 ambulatory MONICA Adonis GRULLON Facility: [facility] Start: 01-24-2023 End: 01-24-2023 Patient encounter procedure MONICA Adonis GRULLON [facility] [employer] Start: 01-23-2023 End: 01-23-2023 ambulatory Mart Jiang Other [facility] Other Start: 01-23-2023 Telephone encounter Mart Jiang [facility] Start: 01-09-2023 End: 01-10-2023 ambulatory Emerald M. Lue Facility:[facility] Start: 12-27-2022 End: 12-28-2022 ambulatory Emerald M. Lue Facility: [facility] Start: 12-27-2022 End: 12-27-2022 Patient encounter procedure Emerald MLenka Grijalvae [facility] [employer] Start: 12-13-2022 End: 12-14-2022 ambulatory Emeraldmarybeth Jeffrey Facility:[facility] Start: 12-13-2022 End: 12-13-2022 Patient encounter procedure Emerald Jeffrey [facility] Start: 11-29-2022 End: 11-30-2022 ambulatory Emerald Jeffrey Facility:[facility] Start: 11-29-2022 End: 11-29-2022 Patient encounter procedure Emerald Jeffrey [facility] Start: 11-17-2022 End: 11-17-2022 ambulatory Mart Jiang Other [employer] Other Start: 11-17-2022 Office outpatient vi sit 25 minutes Mart Jiang [facility] Start: 11-15-2022 End: 11-16-2022 ambulatory Emerald Jeffrey Facility:[facility] Start: 11-15-2022 End: 11-15-2022 Patient encounter procedure Emerald Jeffrey [facility] Start: 11-07-2022 End: 11-08-2022 ambulatory EMERALDMARYBETH JEFFREY . Facility: Start: 10-31-2022 End: 11-01-2022 ambulatory MONICA GRULLON Facility:[facility] Start: 10-31-2022 End: 10-31-2022 Patient encounter procedure MONICA GRULLON [facility] Start: 10-17-2022 End: 10-18-2022 ambulatory MONICA FITCHRY Facility:[facility] Start: 10-17-2022 End: 10-17-2022 Patient encounter procedure MONICA E MITCHEL [facility] Start: 10-03-2022 End: 10-04-2022 ambulatory MONICA E MITCHEL Facility:[facility] Start: 10-03-2022 End: 10-03-2022 Patient encounter procedure MONICA E MITCHEL [facility] Start: 09-19-2022 End: 09-20-2022 ambulatory MONICA E MITCHEL Facility:[facility] Start: 09-19-2022 End: 09-19-2022 Patient encounter procedure MONICA E MITCHEL [facility] Start: 09-05-2022 End: 09-06-2022 ambulatory MONICA E MITCHEL Facility:[facility] Start: 08-23-2022 End: 08-23-2022 Patient encounter procedure Emerald ShaistaLenka Jeffrey [facility] [employer] Start: 08-09-2022 End: 08-09-2022 Patient encounter procedure Emerald ShaistaLenka Grijalvaadonis [facility] Start: 07-26-2022 End: 07-27-2022 ambulatory MONICA MITCHEL Facility: Start: 07-12-2022 End: 07-12-2022 Patient encounter procedure MONICA E MITCHEL [facility] Start: 06-07-2022 End: 06-07-2022 Patient encounter procedure MONICA E MITCHEL [facility] Start: 05-03-2022 End: 05-03-2022 Patient encounter procedure MONICA GRULLON [facility] Start: 04-17-2022 Encounter for genera l adult medical examination without abnormal findings DR MART JIANG [facility] Start: 04-14-2022 End: 04-15-[address] MART JIANG Facility:[facility] Start: 04-14-2022 End: 04-15-2022 Encounter for general adult medical examination without abnormal findings DR MART JIANG Facility:[facility] Start: 04-05-2022 End: 04-05-2022 Patient encounter procedure Lea Mahoney Jr. [facility] Start: 03-29-2022 End: 03-29-2022 ambulatory DO Mart Jiang Work Phone: [facility] Work Phone: Start: 03-29-2022 End: 03-29-2022 Discharged Recurring DO aMrt Jiang Work Phone: [facility] Start: 03-07-2022 End: 03-07-2022 Patient encounter procedure Lea Mahoney Jr. [facility] Start: 02-07-2022 End: 02-07-2022 Patient encounter procedure Lea Mahoney Jr. [facility] Start: 12-28-2021 End: 12-29-[address] MART JIANG Facility:[facility] Start: 12-28-2021 End: 12-29-[address] MART JIANG Facility:[facility] Start: 12-14-2021 End: 12-14-2021 Patient encounter procedure MONICA GRULLON [facility] Start: 11-14-2021 End: 11-14-2021 Patient encounter procedure Lea Mahoney Jr. [facility] Procedures Date Procedure Procedure Detail Performing Clinician Start: 07-26-[address] ROBIN Patricia ISTED REQUEST Comment on above: Performed By: #### P SAD #### [facility] [address] [place] [address] Dr. lSy Figueroa Start: 04-14-[address] ROBIN Patricia ISTED REQUEST Comment on above: Performed By: #### P SASC #### [facility] [address] [place] [address] Dr. Sly Figueroa Cholecystectomy Lea Mahoney Jr. Colonoscopy Lea Og Tonsillectomy Lea chakraborty Plan of Treatment Date Care Activity Detail Author Start: 06-11-2025 End: 06-11-2025 Patient encounter procedure 06/11/2025 9:50 AM EDT Office Visit [facility] [address] [facility] [address] [place] [address] Frank De Souza DPM [address] [address] [facility] Start: 04-27-2025 Influenza vaccination Influenza Vacc ine (#1) [facility] Start: 03-12-2025 End: 03-12-2025 Patient encounter procedure 03/12/2025 9:50 AM EDT Office Visit [facility] [address] [facility] [address] [place] [address] Frank De Souza DPM [address] [address] Diabetes 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, unspecified whether oil heaterman insulin use (HCC) (Primary Dx); Pain due to onychomycosis of toenails of both feet; Exostosis of right foot [facility] Comment on above: Diabetes mellitus du e to underlying condition with diabetic polyneuropathy, unspecified whether oil heaterman insulin use (HCC) (Primary Dx); Pain due to onychomycosis of toenails of both feet; Exostosis of right foot Start: 12-17-2024 End: 12-17-2024 Patient encounter procedure 12/17/2024 2:30 PM EDT Office Visit [facility] [address] [place] [id number] Frank De Souza DPM [address] [address] Diabetes 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, unspecified whether oil heaterman insulin use (CMS/HCC) (Primary Dx); Pain due to onychomycosis of toenails of both feet; Exostosis of right foot [facility] Comment on above: Diabetes mellitus du e to underlying condition with diabetic polyneuropathy, unspecified whether jail insulin use (CMS/HCC) (Primary Dx); Pain due to onychomycosis of toenails of both feet; Exostosis of right foot Start: 1960 Screening for malign ant neoplasm of colon [facility] Comprehensive metabo lic 1999 panel - Serum or Plasma [facility] Comprehensive metabo lic 1999 panel - Serum or Plasma [facility] Microalbumin [Mass/volume] in Urine [facility] Immunizations Immunization Date Immunization Notes Care Provider Fa cility 06-11-2025 influenza, high dose seasonal, preservative-free Mart Jiang DO Work Phone: [facility] 08-06-2024 Pneumococcal Conjuga te Vaccine, 20 valent [facility] 06-13-2024 influenza, high dose seasonal, preservative-free [facility] 06-13-2024 influenza virus vaccine, unspecified formulation Frank De Souza DPM Work Phone: [facility] 06-11-2023 influenza virus vaccine, unspecified formulation Emerald Lue [facility] 05-29-2023 influenza virus vaccine, unspecified formulation Emerald Lue [facility] 05-23-2022 influenza virus vaccine, unspecified formulation Emerald Lue [facility] 07-20-2021 SARS-CoV-2 (COVID-19 ) mRNA BNT-162b2 vax Emerald Lue [facility] Comment on above: Result Comment: 2021: [id number] 06-01-2021 influenza virus vaccine, unspecified formulation Emerald Lue [facility] 12-08-2020 SARS-CoV-2 (COVID-19 ) mRNA BNT-162b2 vax Emerald Lue [facility] 11-17-2020 SARS-CoV-2 (COVID-19 ) mRNA BNT-162b2 vax Emerald Lue [facility] Payers Date Payer Category Payer Medicare MEDICARE [id number] 2024 Medicare [id number] 2023 Private Health Insurance [facility] [place] [address] [id number] 5 2023 Unknown [id number] 1959 Self-pay [id number] 1959 Unknown [id number] 1959 Unknown [id number] 2.840.1.928861.3.579 .2.59 1959 Unknown [id number] .840.1.098430.3.579 .2.59 1959 Unknown [id number] .840.1.631049.3.579 .2.59 1959 Unknown [id number] 2.840.1.473442.3.579 .2.59 1959 Unknown [id number] 2.16840.1.879236.3.579 .2.59 1959 Unknown [id number] 2.16840.1.282445.3.579 .2.727 1959 Unknown [id number] 2.16840.1.150745.3.579 .2.72 1959 Unknown [id number] 2.16.840.1.133116.3.579 .2. 1959 Unknown [id number] 2.16.840.1.801664.3.579 .2 1959 Unknown [id number] 2.16.840.1.413793.3.579 .1959 Unknown [id number] 2.16.840.1.167473.3.579 .1959 Unknown [id number] 2..840.1.307239.3.579 .1959 Unknown [id number] 2..840.1.131643.3.579 .1959 Unknown [id number] 2..840.1.631040.3.579 .1959 Unknown [id number] 2..840.1.602962.3.579 .1959 Unknown [id number] ..840.1.931207.3.579 .1959 Unknown [id number] 2..840.1.806565.3.579 .1959 Unknown [id number] ..840.1.852221.3.579 .1959 Unknown [id number] 2.16.840.1.211674.3.579 .1959 Unknown [id number] 2.16.840.1.293872.3.579 .1959 Unknown [id number] 2.16.840.1.945537.3.579 .1959 Unknown [id number] 2.16.840.1.871197.3.579 .1959 Unknown [id number] 2.16.840.1.740648.3.579 .2. 1959 Unknown [id number] 2.16.840.1.029209.3.579 .2. 1959 Unknown [id number] 2.16.840.1.277149.3.579 .2. 1959 Unknown [id number] 2..840.1.887889.3.579 .2. 1959 Unknown [id number] 2..840.1.903170.3.579 .2. 1959 Unknown [id number] .840.1.003401.3.579 .2 1959 Unknown [id number] 2..840.1.735765.3.579 .2 1959 Unknown [id number] .840.1.456441.3.579 .2 1959 Unknown [id number] ..840.1.264583.3.579 .2 1959 Unknown [id number] ..840.1.810815.3.579 .2 1959 Unknown [id number] .840.1.822074.3.579 .2 1959 Unknown [id number] .840.1.026139.3.579 .2.125 1959 Unknown [id number] ..840.1.175112.3.579 .2.125 1959 Unknown [id number] 2.16.840.1.721566.3.579 .2.1259 Unknown [id number] 2.16.840.1.820667.3.579 .2.531 Unknown [id number] 2.16.840.1.873444.3.579 .2.593 Unknown [id number] .16.840.1.069241.3.579 .2.593 Unknown [employer] BC/BS [id number] Unknown Regular Insurance [id number] Social History Date Type Detail Facility Start: 07-05-2021 End: 08-09-2022 Tobacco smoking status Ex-smoker (finding) [facility] Sex Assigned At Male [facility] Start: 1960 Sex Assigned At Male F [facility] Tobacco smoking status Never [facility] Start: 11-15-2022 End: 10-13-2023 Tobacco smoking status Never smoked tobacco (finding) [facility] Start: 10-15-2024 Sex Male (finding) [facility] Start: 04-08-2024 Tobacco smoking stat [facility] Tobacco smoking consumption unknown [facility] Start: 04-08-2024 End: 03-12-2025 Alcoholic beverage intake Defer [facility] Start: 1960 Sex assigned at Not on file N S [facility] Functional Status Date Assessment Result Facility 09-05-2023 Functional Status N/A [facility] 02-21-2023 Functional Status No [facility] 11-15-2022 Functional Status N/A [facility] 08-09-2022 Functional Status N/A [facility] 02-07-2022 Functional Status N/A [facility] Clinical Notes 02-07-2022 to 02-09-2025 Note Date & Type Note Facility 02-09-2025 Evaluation note Diagnosis Onset Date Resolution Chronic venous insufficiency acute February 09, 2025 9:24am Elevated cholesterol acute February 09, 2025 9:24am Essential hypertension acute Ju 2024 9:24am Obesity acute February 09 9:24am Type 2 diabetes mellitus with diabetic polyneuropathy acute February 09, 2025 9:24am Type 2 diabetes mellitus with hyperglycemia acute February 09 9:24am Impacted cerumen of left ear noneactive February 09, 2025 9:24am [facility] Work Phone: [phone]) 582-728801-10-2024 Hospital Discharge instructions Patient Education 09/05/2023 10:55:33 Hypogonadism, Male [...] therapy. Follow these instructions at home: Take yqgx-kvz-rzgjbvl and prescription medicines only as told by [...] provider. Document Revised: 04/14/2021 Document Reviewed: 04/14/2021 [employer] Patient Education 2022 [employer]. Follow Up Care 02/21/2023 11:11:13 With:Wojciech GUERRERO, ABIGAIL [place], URO Address: [address], [place] [phone] When: only if needed [facility] 10-17-2023 Evaluation note* Encounter Date Diagnosis Assessment Notes Treatment Notes Treatment Clinical Notes May, Wellness examination (ICD-10 - Z00.00) [...] blisters and ulcerations. 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 Follow these instructions at home: Take bkdi-amp-vprnwls and prescription medicines only as told by [...] provider. Document Revised: 04/14/2021 Document Reviewed: 04/14/2021 [employer] Patient Education 2022 [employer]. Follow Up Care 11/29/2022 08:37:40 With:Wojciech GUERRERO, ABIGAIL [place], URO Address: When:Within 6 Month(s) Comments:w/ [place] [facility] 03-24-2023 Evaluation note* Encounter Date Diagnosis Assessment [...] to increased BS PSA closely monitored Oct, pen[facility]ent[facility] (current) use of insulin (ICD-10 - Z79.4) [employer] Other 03-22-2023 Evaluation + Plan note Diagnostic Tests Pending * Testosterone Level Total 11/15/22 * Hematocrit 11/15/22 [facility] 03-22-2023 Hospital Discharge instructions Patient Education 11/15/2022 [...] 11/19/2001 Document Revised: 12/04/2019 Document Reviewed: 07/09/2017 [employer] Patient Education 2019 [employer]. Follow Up Care 08/09/2022 14:30:27 With:Wojciech GUERRERO, Emerald Arte[place], URL, URO Address: When: Unknown [facility] 12-14-2022 Hospital Discharge instructions Patient Education 08/09/2022 [...] Follow these instructions at home: Medicines Take lntt-ibz-embhgcd and prescription medicines only as told by [...] 08/10/2001 Document Revised: 07/26/2018 Document Reviewed: 08/29/2017 [employer] Patient Education 2020 [employer]. Follow Up Care 02/07/2022 10:37:37 With:Wojciech GUERRERO, Emerald Arteaga URHarshad, URO Address: When:3 months Comments:w/ labs [facility] 06-14-2022 Hospital Discharge instructions Patient Education 02/07/2022 10:32:30 Testicular Self-Exam, Uspj-pz-Jfdy Testicular Self-Exam A self-exam of your testicles [...] 11/09/2009 Document Revised: 12/04/2019 Document Reviewed: 07/09/2017 [employer] Patient Education 2020 [employer]. Follow Up Care 12/14/2021 15:56:30 With:Denzel Hernandez MD, Lea Patricia URO Address: [facility] [address], [place] [address]- When:Within 6 Month(s) Comments:w/ PSA and Testosterone level [facility] evaluation + Plan note Future Appointments Appointment Date:12/14/2021 02:45:00 PM Scheduled Provider: Location:[facility] Appointment Type:URO Nurse Visit [facility] evaluation + Plan note Future Appointments Appointment Date:01/11/2022 09:15:00 AM Scheduled Provider:MONICA GRULLON PA-C Location:[facility] Appointment Type:URO Office Visit Diagnostic Tests Pending * Testosterone Level Total 12/14/21 [facility] evaluation + Plan note Future Appointments Appointment Date:03/07/2022 09:30:00 AM Scheduled Provider: Location:[facility] Appointment Type:URO Nurse Visit Appointment Date:08/08/2022 10:15:00 AM Scheduled Provider:Lea Mahoney Jr., MD Location:[facility] Appointment Type:URO Office Visit Diagnostic Tests Pending * PSA Total 02/07/22 * Testosterone Level Total 02/07/22 [facility] evaluation + Plan note Future Appointments Appointment Date:04/05/2022 03:30:00 PM Scheduled Provider: Location:[facility] Appointment Type:URO Nurse Visit Appointment Date:08/08/2022 10:15:00 AM Scheduled Provider:Lea Mahoney Jr., MD Location:[facility] Appointment Type:URO Office Visit [facility] evaluation + Plan note Future Appointments Appointment Date:05/03/2022 03:30:00 PM Scheduled Provider: Location:[facility] Appointment Type:URO Nurse Visit Appointment Date:08/08/2022 10:15:00 AM Scheduled Provider:Lea Mahoney Jr., MD Location:[facility] Appointment Type:URO Office Visit [facility] evaluation + Plan note Future Appointments Appointment Date:08/08/2022 10:15:00 AM Scheduled Provider:Lea Mahoney Jr., MD Location:[facility] Appointment Type:URO Office Visit [facility] evaluation + Plan note Future Appointments Appointment Date:07/05/2022 09:00:00 AM Scheduled Provider: Location:[facility] Appointment Type:URO Nurse Visit Appointment Date:08/15/2022 11:30:00 AM Scheduled Provider:Lea Mahoney Jr., MD Location:[facility] Appointment Type:URO Office Visit [facility] evaluation + Plan note Future Appointments Appointment Date:08/09/2022 11:15:00 AM Scheduled Provider:Emerald Jeffrey MD Location:[facility] Appointment Type:URO Office Visit Diagnostic Tests Pending * PSA Total 07/07/22 * Testosterone Level Total 07/07/22 [facility] evaluation + Plan note Future Appointments Appointment Date:08/23/2022 03:30:00 PM Scheduled Provider: Location:[facility] Appointment Type:URO Nurse Visit Appointment Date:09/05/2022 03:30:00 PM Scheduled Provider: Location:[facility] Appointment Type:URO Nurse Visit Appointment Date:11/08/2022 08:30:00 AM Scheduled Provider:Emerald Jeffrey MD Location:[facility] Appointment Type:URO Office Visit Diagnostic Tests Pending * Testosterone Level Total 08/09/22 * Hemoglobin and Hematocrit 08/09/22 [facility] evaluation + Plan note Future Appointments Appointment Date:09/05/2022 03:30:00 PM Scheduled Provider: Location:[facility] Appointment Type:URO Nurse Visit Appointment Date:11/08/2022 08:30:00 AM Scheduled Provider:Emerald Jeffrey MD Location:[facility] Appointment Type:URO Office Visit [facility] evaluation + Plan note Future Appointments Appointment Date:10/03/2022 03:30:00 PM Scheduled Provider: Location:[facility] Appointment Type:URO Nurse Visit Appointment Date:10/17/2022 03:30:00 PM Scheduled Provider: Location:[facility] Appointment Type:URO Nurse Visit Appointment Date:11/08/2022 08:30:00 AM Scheduled Provider:Emerald Jeffrey MD Location:[facility] Appointment Type:URO Office Visit [facility] evaluation + Plan note Future Appointments Appointment Date:10/17/2022 03:30:00 PM Scheduled Provider: Location:[facility] Appointment Type:URO Nurse Visit Appointment Date:11/08/2022 08:30:00 AM Scheduled Provider:Emerald [facility] MD [facility] Office Visit [facility] evaluation + Plan note Future Appointments Appointment Date:10/31/2022 03:30:00 PM Scheduled Provider: Location:[facility] Appointment Type:URO Nurse Visit Appointment Date:11/15/2022 08:00:00 AM Scheduled Provider:Emerald Jeffrey MD Location:[facility] Appointment Type:URO Office Visit Diagnostic Tests Pending * Testosterone Level Total 10/17/22 * CBC w/ Auto Diff 10/17/22 [facility] evaluation + Plan note Future Appointments Appointment Date:11/15/2022 08:00:00 AM Scheduled Provider:Emerald Jeffrey MD Location:[facility] Appointment Type:URO Office Visit [facility] evaluation + Plan note Future Appointments Appointment Date:12/13/2022 03:15:00 PM Scheduled Provider: Location:[facility] Appointment Type:URO Nurse Visit Appointment Date:12/27/2022 03:15:00 PM Scheduled [facility] Type[facility] Nurse Visit Appointment Date:01/10/2023 03:15:00 PM Scheduled Provider: Location:[facility] Appointment Type:URO Nurse Visit Appointment Date:02/14/2023 08:45:00 AM Scheduled Provider:Emerald Jeffrey MD Location:[facility] Appointment Type:URO Office Visit [facility] evaluation + Plan note Future Appointments Appointment Date:12/27/2022 03:15:00 PM Scheduled Provider: [facility] Appointment Type:URO Nurse Visit Appointment Date:01/09/2023 03:15:00 PM Scheduled Provider: Location:[facility] Appointment Type:URO Nurse Visit Appointment Date:02/14/2023 08:45:00 AM Scheduled Provider:Emerald Jeffrey MD Location:[facility] Appointment Type:URO Office Visit [facility] evaluation + Plan note Future Appointments Appointment Date:01/09/2023 03:15:00 PM Scheduled Provider: Location:[facility] Appointment Type:URO Nurse Visit Appointment Date:02/14/2023 08:45:00 AM Scheduled Provider:Emerald Jeffrey MD Location:[facility] Appointment Type:URO Office Visit [facility] evaluation + Plan note Future Appointments Appointment Date:02/06/2023 09:30:00 AM Scheduled Provider: Location:[facility] Appointment Type:URO Nurse Visit Appointment Date:02/21/2023 09:45:00 AM Scheduled Provider:Emerald Jeffrey MD Location:[facility] Appointment Type:URO Office Visit [facility] evaluation + Plan note Future Appointments Appointment Date:02/21/2023 09:45:00 AM Scheduled Provider:Emerald Jeffrey MD Location:[facility] Appointment Type:URO Office Visit [facility] evaluation + Plan note Future Appointments Appointment Date:03/06/2023 03:45:00 PM Scheduled Provider: Location:[facility] Appointment Type:URO Nurse Visit Appointment Date:03/20/2023 03:45:00 PM Scheduled Provider: Location:[facility] Appointment Type:URO Nurse Visit Appointment Date:08/29/2023 08:00:00 AM Scheduled Provider:Emerald Jeffrey MD Location:[facility] Appointment Type:URO Office Visit Diagnostic Tests Pending * Testosterone Level Total 02/21/23 * Hemoglobin and Hematocrit 02/21/23 * PSA Total 02/21/23 [facility] evaluation + Plan note Future Appointments Appointment Date:03/19/2023 03:45:00 PM Scheduled Provider: [facility] Appoint[facility] Type:URO Nurse Visit Appointment Date:08/29/2023 08:00:00 AM Scheduled Provider:Emerald Jeffrey MD [facility] Office Visit [facility] evaluation + Plan note Future Appointments Appointment Date:04/04/2023 03:45:00 PM Scheduled Provider: Location:[facility] Kristy Appointment Type:URO Nurse Visit Appointment Date:04/18/2023 03:45:00 PM Scheduled Provider: [facility] Appointment Type:URO Nurse Visit Appointment Date:05/02/2023 03:45:00 PM Scheduled Provider: [facility] Appointment Type:URO Nurse Visit Appointment Date:05/16/2023 03:45:00 PM Scheduled Provider: [facility] Appointment Type:URO Nurse Visit Appointment Date:08/29/2023 08:00:00 AM Scheduled Provider:Emerald Jeffrey MD [facility] Appoint[facility] Type:URO Office Visit [facility] evaluation + Plan note Future Appointments Appointment Date:04/18/2023 03:45:00 PM Scheduled Provider: Location[facility] Appointment Type:URO Nurse Visit Appointment Date:05/02/2023 03:45:00 PM Scheduled Provider: Location[facility] Appointment Type:URO Nurse Visit Appointment Date:05/16/2023 03:45:00 PM Scheduled Provider: Location[facility] Appointment Type:URO Nurse Visit Appointment Date:08/29/2023 08:00:00 AM Scheduled Provider:Emerald Jeffrey MD [facility] Appointment Type:URO Office Visit [facility] evaluation + Plan note Future Appointments Appointment Date:05/02/2023 03:45:00 PM Scheduled Provider: Location:[facility] Kristy Appointment Type:URO Nurse Visit Appointment Date:05/16/2023 03:45:00 PM Scheduled Provider: Location:[facility] Appointment Type:URO Nurse Visit Appointment Date:05/29/2023 03:45:00 PM Scheduled Provider: Location:[facility] Kristy Appointment Type:URO Nurse Visit Appointment Date:08/29/2023 08:00:00 AM Scheduled Provider:Emerald Jeffrey MD Location:[facility] Kristy Appointment Type:URO Office Visit [facility] evaluation + Plan note Future Appointments Appointment Date:05/16/2023 03:45:00 PM Scheduled Provider: Location:[facility] Appointment Type:URO Nurse Visit Appointment Date:05/29/2023 09:00:00 AM Scheduled Provider: Location:[facility] Kristy Appointment Type:URO Nurse Visit Appointment Date:06/12/2023 09:00:00 AM Scheduled Provider: Location:[facility] Appointment Type:URO Nurse Visit Appointment Date:06/26/2023 09:00:00 AM Scheduled Provider: Location:[facility] Appointment Type:URO Nurse Visit Appointment Date:07/10/2023 09:00:00 AM Scheduled Provider: Location:[facility] Appointment Type:URO Nurse Visit Appointment Date:07/24/2023 09:00:00 AM Scheduled Provider: Location:[facility] Appointment Type:URO Nurse Visit Appointment Date:08/07/2023 09:00:00 AM Scheduled Provider: Location:[facility] Appointment Type:URO Nurse Visit Appointment Date:08/21/2023 09:30:00 AM Scheduled Provider: Location:[facility] Appointment Type:URO Nurse Visit Appointment Date:09/05/2023 09:45:00 AM Scheduled Provider:Emerald Jeffrey MD Location:[facility] Kristy Appointment Type:URO Office Visit [facility] evaluation + Plan note Future Appointments Appointment Date:06/12/2023 03:45:00 PM Scheduled Provider: Location:[facility] Kristy Appointment Type:URO Nurse Visit Appointment Date:06/26/2023 03:45:00 PM Scheduled Provider: Location:[facility] Kristy Appointment Type:URO Nurse Visit Appointment Date:07/10/2023 03:45:00 PM Scheduled Provider: Location:[facility] Appointment Type:URO Nurse Visit Appointment Date:07/24/2023 03:45:00 PM Scheduled Provider: Location:[facility] Kristy Appointment Type:URO Nurse Visit Appointment Date:08/07/2023 03:45:00 PM Scheduled Provider: Location:[facility] Kristy Appointment Type:URO Nurse Visit Appointment Date:08/21/2023 03:45:00 PM Scheduled Provider: Location:[facility] Kristy Appointment Type:URO Nurse Visit Appointment Date:09/05/2023 09:45:00 AM Scheduled Provider:Emerald Jeffrey MD Location:[facility] Appointment Type:URO Office Visit [facility] evaluation + Plan note Future Appointments Appointment Date:07/10/2023 09:30:00 AM Scheduled Provider: Location:[facility] Krist[facility] Appointment Type:URO Nurse Visit Appointment Date:07/24/2023 03:45:00 PM Scheduled Provider: Location:[facility] Kristy Appointment Type:URO Nurse Visit Appointment Date:08/07/2023 03:45:00 PM Scheduled Provider: Location:[facility] Appointment Type:URO Nurse Visit Appointment Date:08/21/2023 03:45:00 PM Scheduled Provider: Location:[facility] Kristy Appointment Type:URO Nurse Visit Appointment Date:09/05/2023 09:45:00 AM Scheduled Provider:Emerald Jeffrey MD Location:[facility] Krist[facility] Appointment [facility] Future Appointments Appointment Date:07/24/2023 09:30:00 AM Scheduled Provider: Location:[facility] Kristy Appointment Type:URO Nurse Visit Appointment Date:08/07/2023 09:30:00 AM Scheduled Provider: Location:[facility] Appointment Type:URO Nurse Visit Appointment Date:08/21/2023 09:30:00 AM Scheduled Provider: Location:[facility] Appointment Type:URO Nurse Visit Appointment Date:09/05/2023 09:45:00 AM Scheduled Provider:Emerald Jeffrey MD Location:[facility] Appointment Type:URO Office Visit [facility] evaluation + Plan note Future Appointments Appointment Date:08/07/2023 09:30:00 AM Scheduled Provider: Location:[facility] Appointment Type:URO Nurse Visit Appointment Date:08/22/2023 09:30:00 AM Scheduled Provider: Location:[facility] Appointment Type:URO Nurse Visit Appointment Date:09/05/2023 09:45:00 AM Scheduled Provider:Emerald Jeffrey MD Location:[facility] Appointment Type:URO Office Visit [facility] evaluation + Plan note Future Appointments Appointment Date:08/22/2023 09:30:00 AM Scheduled Provider: Location:[facility] Appointment Type:URO Nurse Visit Appointment Date:09/05/2023 09:45:00 AM Scheduled Provider:Emerald Jeffrey MD Location:[facility] Appointment Type:URO Office Visit [facility] evaluation + Plan note Future Appointments Appointment Date:09/05/2023 09:45:00 AM Scheduled Provider:Emerald Jeffrey MD Location:[facility] Appointment Type:URO Office Visit [facility] evaluation noteNo assessment information available [facility] Work Phone: Evaluktrgs noteNo InformationNodeaconess incarn[facility] [employer] Other Evaluation note* Diagnosis Onset Date Resolution Status Chronic venous insufficiency acute Elevated cholesterol acute Essential hypertension acute Obesity acute Type 2 diabetes mellitus wit h diabetic polyneuropathy acute Type 2 diabetes mellitus with hyperglycemia acute Welcome to Medicare preventive visit noneactive [facility] Work Phone: Evaluation note* Diagnosis Onset Date Resolution Status Admit Date Chronic venous insufficiency acute October 15, 2024 9:26am Elevated cholesterol acute Febr uary 2024 9:26am Essential hypertension acute Fe bruary 2024 9:26am Obesity acute October 15, 2024 9:26am Type 2 diabetes mellitus wit h diabetic polyneuropathy acute October 15, 2024 9:26am Type 2 diabetes mellitus wit h hyperglycemia acute October 15 9:26am [facility] Work Phone: Evaluation note* Diagnosis Diabetes 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, unspecified whether jail insulin use ([facility]/HCC)- Primary Pain due to onychomycosis of toenails of both feet Exostosis of right foot documented in this encounter [facility] HealthcareEvaluation note* Diagnosis Exostosis of right foot- Primary Diabetes 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, unspecified whether jail insulin use (HCC) Pain due to onychomycosis of toenails of both feet documented in this encounter [facility] HealthcareEvaluation note* Diagnosis Onset Date Resolution Status Admit Date [...] wellness visit, initial noneactive June 11 8:26am [facility] Work Phone: History general Narrative - Reported* Type Description [...] COLONOSCOPY 2014 Hospitalization History SEE SURGICAL HX [employer] Other History of Present illness Narrative* Frank A Ap, DPM - 12/17/2024 2:30 PM EDT Patient: Suad Chappell : 1960 PCP: Mart Jiang MD SUBJECTIVE This is a 64 y.o. male that presents today with a CC of elongated, thick nails. Pt states nails have been elongated and thick for many years and cause pain with ambulation in shoegear. Pt has tried previous treatment with minimal relief. Pt presents today for nail care and treatment. Patient is DM2 with peripheral neuropathy Patient also history of controlled sugars currently but had history of uncontrolled sugars and thathad Charcot foot deformities to bilateral feet in the past Denies any history of ulcerations to his feet States some pain to the dorsum aspect of the right foot and area of bony prominence particularly inshoe gear and has tried to wear accommodative shoes with some improvement Allergies: No Known Allergies Past Medical History: Past Medical History: Diagnosis Date Lymphedema Medications: No current outpatient medications on file. Social History: Social History Socioeconomic History Marital status: Spouse name: Not on file Number of children: Not on file Years of education: Not on file Highest education level: Not on file Occupational History Not on file Tobacco Use Smoking status: Unknown Smokeless tobacco: Not on file Substance and Sexual Activity Alcohol use: Defer Drug use: Defer Sexual activity: Not on file Other Topics Concern Not on file Social History Narrative Not on file Social Drivers of Health Financial Resource Strain: Not on file Food Insecurity: Not on file Transportation Needs: Not on file Physical Activity: Not on file Stress: Not on file Social Connections: Not on file Intimate Partner Violence: Not on file Housing Stability: Not on file ROS: Gastrointestinal: denies abdominal pain, ulcers, or changes in appetite or bowel habits Musculoskeletal: Positive generalized arthritis to joints and denies loss of strength. Cardiovascular: denies CP, palpitations, irregular rhythms OBJECTIVE LE EXAM: DERM: Elongated thick yellow crumbly nails digits 1 through 10. Diminished hair growth with thin shiny atrophic skin bilaterally, large bony exostosis of the 1st met cuneiform joint dorsally bilaterally and plantarly VASC: Positive DP and negative PT pedal pulses NEURO: 5.07 [place] monofilament test intact to digits and forefoot bilaterally 125Hz tuning fork diminished to 1st MPJ bilaterally ORTHO: Positive pain on palpation to toenails of the left 1,2,3,4,5 toes and right 1,2,3,4,5 toes minimal pain on palpation to the right dorsal exostosis ASSESSMENT 1. Diabetes 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, unspecified whether jail insulin use ([facility]) 2. Pain due to onychomycosis of toenails of both feet 3. Exostosis of right foot PLAN Discussed proper foot care with patient today. Debride nails in length and thickness digits 1 through 10 Patient educated today on proper diabetic foot care including monitoring feet daily for any signs of infection openings in the skin or irregularities to both feet. Patient had a diabetic neurologicalexam today to both their feet and discussed proper shoe gear. Discussed conservative and surgical treatment options for patient today including postoperative time frame and surgical procedure in detail. Patient may continue with conservative treatments including [id number] anti- inflammatories and other treatments suggested today. Patient may want to be s cheduled for surgical intervention in the near future. Discussed possible exostectomy in the futureand patient may consider in the future Frank De Souza DPM documented [facility] Present [facility] Narrative * Frank De Souza DPM - 03/12/2025 9:50 AM EDT Patient: Suad Chappell : 1960 PCP: Mart Jiang DO SUBJECTIVE This is a 64 y.o. male that presents today with a CC of elongated, thick nails. Pt states nails have been elongated and thick for many years and cause pain with ambulation in shoegear. Pt has tried previous treatment with minimal relief. Pt presents today for nail care and treatment. Patient is DM2 with peripheral neuropathy Patient also history of controlled sugars currently but had history of uncontrolled sugars and thathad Charcot foot deformities to bilateral feet in the past Denies any history of ulcerations to his feet States some pain to the dorsum aspect of the right foot and area of bony prominence particularly inshoe gear and has tried to wear accommodative shoes. Patient rates pain a 5/10. Discussion of possible sx in the past. Allergies: No Known Allergies Past Medical History: Past Medical History: Diagnosis Date Lymphedema Medications: No current outpatient medications on file. Social History: Social History Socioeconomic History Marital status: Spouse name: Not on file Number of children: Not on file Years of education: Not on file Highest education level: Not on file Occupational History Not on file Tobacco Use Smoking status: Unknown Smokeless tobacco: Not on file Substance and Sexual Activity Alcohol use: Defer Drug use: Defer Sexual activity: Not on file Other Topics Concern Not on file Social History Narrative Not on file Social Drivers of Health Financial Resource Strain: Not on file Food Insecurity: Not on file Transportation Needs: Not on file Physical Activity: Not on file Stress: Not on file Social Connections: Not on file Intimate Partner Violence: Not on file Housing Stability: Not on file ROS: Gastrointestinal: denies abdominal pain, ulcers, or changes in appetite or bowel habits Musculoskeletal: Positive generalized arthritis to joints and denies loss of strength. Cardiovascular: denies CP, palpitations, irregular rhythms OBJECTIVE LE EXAM: DERM: Elongated thick yellow crumbly nails digits 1 through 10. Diminished hair growth with thin shiny atrophic skin bilaterally, large bony exostosis of the 1st met cuneiform joint dorsally bilaterally and plantarly VASC: Positive DP and negative PT pedal pulses NEURO: 5.07 [place] monofilament test intact to digits and forefoot bilaterally 125Hz tuning fork diminished to 1st MPJ bilaterally ORTHO: Positive pain on palpation to toenails of the left 1,2,3,4,5 toes and right 1,2,3,4,5 toes minimal pain on palpation to the right dorsal exostosis ASSESSMENT 1. Diabetes 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, unspecified whether oil heaterman insulin use (HCC) 2. Pain due to onychomycosis of toenails of both feet 3. Exostosis of right foot PLAN Discussed proper foot care with patient today. Debride nails in length and thickness digits 1 through 10 Patient educated today on proper diabetic foot care including monitoring feet daily for any signs of infection openings in the skin or irregularities to both feet. Patient had a diabetic neurologicalexam today to both their feet and discussed proper shoe gear. Discussed conservative and surgical treatment options for patient today including postoperative time frame and surgical procedure in detail. Patient may continue with conservative treatments including [id number] anti- inflammatories and other treatments suggested today. Patient may want to be s cheduled for surgical intervention in the near future. Discussed different shoe gear today with patient in detail and also discussed possible right or left foot dorsal exostectomy in the future and patient may consider in the winter timeframe and explained postoperative timeframe in detail Frank De [facility]za DPM [facility] Narrative No data available for this section [facility] Hospital Discharge instructions No data available for this section [facility] progress note No data available for this section [facility] reason for referral (narrative)No reason for referral [facility] Work Phone: Chief Complaint and Reason for Visit Chief Complaint Rt. Leg lymphedema Chief Complaint Wellness - High Risk Reason for Visit Chronic venous insuf ficiency Elevated cholesterol Essential hypertension Obesity Type 2 diabetes mellitus with diabetic polyneuropathy Type 2 diabetes mellitus with hyperglycemia Welcome to Medicare preventive visit Chief Complaint Admit Date pneumonia shot, wte check August 06, 2024 11:45am 4 month f/u October 15, 2024 9:26am Reason for Visit Admit Date Chronic venous insufficiency October 152024 9:26am Elevated cholesterol October 15, 2024 9:26am Essential hypertension October 15 9:26am Obesity October 15, 2024 9:26am Type 2 diabetes mellitus with diabetic p olyneuropathy October 15, 2024 9:26am Type 2 diabetes mellitus with hyperglyce yo October 15, 2024 9:26am Chief Complaint Admit Date 4 month f/u-HIGH RISK February 09, 2025 9: 24am ear irrigation March 04, 2025 2:07p m Reason for Visit Admit Date Chronic venous insufficiency February 09, 2025 9:24am Elevated cholesterol February 09, 2025 9:2 4am Essential hypertension February 09, 2025 9 :24am Obesity February 09, 2025 9:24 am Type 2 diabetes mellitus with diabetic p olyneuropathy February 09, 2025 9:24am Type 2 diabetes mellitus with hyperglyce yo February 09, 2025 9:24am Impacted cerumen of left ear February 09, 2025 9:24am Chief Complaint Admit Date 4 mo f/u [...] wellness visit, initial June 11, 2025 8:26am Advance Directives Advance Directive Response Recorded Date/ Time Advance Directives No January 28 10:44am Advance Directive Response Recorded Date/ Time Advance Directives No January 28 9:44am Summary Purpose Family History Relationship Condition Age at Onset Recorded Date/T jose father Diabetes mellitus Unknown mother Diabetes mellitus Unknown Additional Source Comments Care Team (unrecognized sect ion and content) Team Status: Inactive Member Role Status Dates Mart Jiang DO Primary Care Provider, Attending Pr pawan Active Team Status: Active Member Role Status Dates Mart Jiang DO Primary Care Provider Active Team Status: Inactive Member Role Status Dates Mart Jiang DO Primary Care Provide r, Attending Provider Active Start: June 13, 2024 End: June 13, 2024 Team Status: Inactive Member Role Status Dates Mart Jiang DO Primary Care Provide r, Attending Provider Active Start: August 06, 2024 End: August 06, 2024 Team Status: Inactive Member Role Status Dates Mart Jiang DO Primary Care Provide r, Attending Provider Active Start: October 15, 2024 End: October 15, 2024 Driller Operator Relationship Specialty Start Date End Date Mart Jiang MD PCP - General Internal Medicine 12/12/24 Driller Operator Relationship Specialty Start Date End Date Mart Jiang MD PCP - General Internal Medicine 12/12/24 Team Status: Inactive Member Role Status Dates Mart Jiang DO Primary Care Provider Active Start: February 09, 2025 End: February 09, 2025 Mart Jiang DO Attending Provider Active Sta rt: February 09, 2025 End: February 09, 2025 Team Status: Inactive Member Role Status Dates Mart Jiang DO Primary Care Provider Active Start: March 04, 2025 End: March 04, 2025 Mart Jiang DO Attending Provider Active Sta rt: March 04, 2025 End: March 04, 2025 Driller Operator Relationship Specialty Start Date End Date Mart Jiang DO [address] [place] [id number] PCP - General Internal Medicine 12/12/24 Driller Operator Relationship Specialty Start Date End Date Mart Jiang DO [address] [place] [id number] PCP - General Internal Medicine 12/12/24 Team Status: Inactive Member Role Status Dates Mart Jiang DO Primary Care Provider Active Start: June 11, 2025 End: June 11, 2025 Mart Jiang DO Attending Provider Active Sta rt: June 11, 2025 End: June 11, 2025 Goals (unrecognized section and content) Goals may be documented in a n alternate section (unrecognized sect ion and content) No Status Records FoundNo Status Records FoundNo Status Records FoundNo Status Records Found INFORMATION SOURCE (unrecogn ized section and content) DATE CREATED AUTHOR 05/30/2022 [facility] DATE CREATED AUTHOR 'S ORGANIZ ATION 11/14/2022 [facility] DATE CREATED AUTHOR AUTHOR'S ORGANIZ ATION 09/04/2023 [facility] DATE CREATED AUTHOR AUTHOR'S ORGANIZ ATION 03/15/2025 [facility] EPIC REASON FOR VISIT (unrecogniz ed section and content) Reason Comments [facility] Dm nail care Reason Comments [facility] FOR RECORDS PERTAINING TO PATIENTS WHO ARE [...] BE BASED ON THE PRIMARY CLINICAL RECORDS. [employer] [facility]. provides no warranty or guarantee of the accuracy or completeness of information in this document.
[2025-06-11 09:54] LABS: Hematocrit 42.9 % (42.0-54.0); Hemoglobin 14.6 g/dL (14.0-18.0); Immature Granulocytes Abs Auto 0.08 10^3/uL (0.00-0.03); Immature Granulocytes Pct Auto 0.8 % (0.0-0.5); Lymphocytes Absolute Auto 3.1 10^3/uL (1.2-3.8); Mean Corpuscular HGB Conc 34.0 g/dL (29.9-35.2); Mean Corpuscular Hemoglobin 30.9 pg (25.9-34.0); Mean Corpuscular Volume 90.7 fL (80.0-94.0); Platelet Count 348 10^3/uL (150-450); Red Blood Count 4.73 10^6/uL (4.70-6.10); White Blood Count 9.7 10^3/uL (4.0-11.0)
[2025-06-11 10:04] LABS: Microalbum Creatinine Ratio Ur 30.8 mg/g (0.0-29.9)
[2025-06-11 10:23] LABS: Alanine Aminotransferase 16 U/L (16-63); Albumin Globulin Ratio 0.9; Albumin Level 3.7 g/dL (3.4-5.0); Alkaline Phosphatase 72 U/L (46-116); Anion Gap 15.5; Aspartate Amino Transferase 13 U/L (15-37); Blood Urea Nitrogen 17.0 mg/dL (7.0-18.0); Calcium 9.3 mg/dL (8.5-10.1); Carbon Dioxide 27.1 mmol/L (21.0-32.0); Chloride 102 mmol/L (98-107); Cholesterol 139 mg/dL (<=200); Estimated GFR (African America >60 (>=60 mL/min/1.73m^2); Estimated GFR (Non-African Ame >60 (>=60 mL/min/1.73m^2); Globulin 4.3 g/dL; Glucose 99 mg/dL (74-106); HDL Cholesterol 47 mg/dL (40-60); Potassium 4.6 mmol/L (3.5-5.1); Sodium 140 mmol/L (136-145); Total Protein 8.0 g/dL (6.4-8.2); Triglycerides 109 mg/dL (<=150); VLDL CHOLESTEROL 21.8 mg/dL
== END 2025-06-11 09:17 | disposition home or self-care (01) ==
LOC: LAB 09:18
PROVIDERS: PCP Internal Medicine; Visit Provider Internal Medicine
DX: E78.00 Pure hypercholesterolemia, unspecified (principal); E11.65 Type 2 diabetes mellitus with hyperglycemia; Z79.4 Long term (current) use of insulin; I10 Essential (primary) hypertension; Z12.5 Encounter for screening for malignant neoplasm of prostate
CPT/HCPCS: 36415; 80053; 80061; 82043; 82570; 83036; 85025; G0103